=== PATIENT | male | born 1955 | race Caucasian/White ===

== ENCOUNTER → 2017-09-16 08:35 | Outpatient (CLI) | payer OTHER, SELFPAY ==
[2017-09-16 12:05] LABS: Absolute Lymphocyte Count 1.14 X10^3/ul (0.83-4.51); Absolute Neutrophil Count 3.8 X10^3/uL (2.0-7.7); Basophil# 0.01 X10^3/uL; Basophil% 0.2 % (0-1); Eosinophil# 0.32 X10^3/uL; Eosinophils% 5.4 % (0-5); Hematocrit 40.3 % (40-54); Lymphocyte # 1.14 X10^3/ul (4.0); Lymphocyte % 19.2 % (19-41); Mean Corp Hgb Conc 34.7 g/gl (32-36); Mean Corpuscular Hgb 30.5 pg (27.0-32.0); Mean Corpuscular Volume 87.8 fL (80-94); Mean Platelet Vol. 9.6 fl (6.2-12.0); Monocyte# 0.66 X10^3/uL; Monocyte% 11.1 % (0-10); Neutrophil % 63.8 % (47-70); POSITIVE COUNT NO; POSITIVE DIFFERENTIAL NO; POSITIVE MORPHOLOGY NO; Platelet Count 271 K/mm3 (150-450); RBC Distribution Width CV 13.3 % (11.6-14.6); RBC Distribution Width SD 41.9 fl (35.1-43.9); Red Blood Count 4.59 M/mm3 (4.6-6.2)
[2017-09-16 12:21] LABS: AST(SGOT) 33 U/L (15-37); Alanine Aminotransfer ALT/SGPT 58 U/L (16-61); Albumin, Serum 4.1 g/dL (3.2-5.0); Alkaline Phosphatase 77 U/L (45-117); Anion Gap 7 (5-15); BUN 13 mg/dL (7-18); BUN/Creat Ratio 16.8 RATIO (10-20); Calcium,Total 8.7 mg/dL (8.5-10.1); Chloride 105 mmol/L (98-107); Cholesterol 112 mg/dL (200); Creatinine, Serum 0.78 mg/dL (0.70-1.30); EST Glomerular Filtration Rate 107 mL/min (>60); Est Glom Filt Rate - Afr Amer 130 mL/min (>60); Glucose 127 mg/dL (74-106); High Density Lipoprotein 43 mg/dL; Potassium 4.1 mmol/L (3.5-5.1); Protein, Total 8.1 g/dL (6.4-8.2); Sodium Level 140 mmol/L (136-145); Triglycerides 113 mg/dL; Very Low Density Lipoprotein 23 mg/dL (5-40)
[2017-09-16 12:44] LABS: Microalbumin,Random Urine 27.9 mg/L (NO RANGE EST.); Microalbumin:Creatinine Ratio 31.1 mg/g CRE (<30 mg/g CRE)
== END ==
LOC: LAB.FUTURE 10-22 08:51 → BFHLAB 10-22 08:52
PROVIDERS: Family Provider Family Medicine; PCP Family Medicine; Visit Provider Family Medicine
DX: E11.9 Type 2 diabetes mellitus without complications (principal); I25.10 Atherosclerotic heart disease of native coronary artery without angina pectoris; E78.5 Hyperlipidemia, unspecified; I10 Essential (primary) hypertension
CPT/HCPCS: 36415; 80053; 80061; 82043; 82570; 85025

== ENCOUNTER → 2018-11-14 | Outpatient (CLI) | payer OTHER, SELFPAY ==
[2018-11-14 12:41] LABS: Absolute Lymphocyte Count 1.46 X10^3/uL (0.83-4.51); Absolute Neutrophil Count 3.4 X10^3/uL (2.0-7.7); Basophil# 0.02 X10^3/uL; Basophil% 0.3 % (0-1); Eosinophil# 0.31 X10^3/uL; Eosinophils% 5.4 % (0-5); Hematocrit 41.3 % (40-54); Hemoglobin 13.3 g/dL (13.0-16.5); Lymphocyte # 1.46 X10^3/ul (4.0); Lymphocyte % 25.3 % (19-41); Mean Corp Hgb Conc 32.2 g/dL (32-36); Mean Corpuscular Hgb 27.5 pg (27.0-32.0); Mean Corpuscular Volume 85.5 fL (80-94); Mean Platelet Vol. 9.4 fl (6.2-12.0); Monocyte# 0.51 X10^3/uL; Monocyte% 8.9 % (0-10); NRBC Flagged by Analyzer 0 % (0-5); Neutrophil # 3.44 X10^3/uL (2.7-7.7); Neutrophil % 59.8 % (47-70); Platelet Count 262 K/mm3 (150-450); RBC Distribution Width CV 14.1 % (11.6-14.6); RBC Distribution Width SD 43.3 fl (35.1-43.9); Red Blood Count 4.83 M/mm3 (4.6-6.2); White Blood Count 5.8 K/mm3 (4.4-11.0)
[2018-11-14 12:59] LABS: Microalbumin:Creatinine Ratio 148.9 mg/g CRE (<30 mg/g CRE)
[2018-11-14 13:03] LABS: AST(SGOT) 29 U/L (15-37); Alanine Aminotransfer ALT/SGPT 49 U/L (16-61); Alkaline Phosphatase 78 U/L (45-117); Anion Gap 11 (5-15); BUN 17 mg/dL (7-18); BUN/Creat Ratio 19.3 RATIO (10-20); Calcium,Total 8.8 mg/dL (8.5-10.1); Chloride 106 mmol/L (98-107); Cholesterol 116 mg/dL (200); Creatinine, Serum 0.88 mg/dL (0.70-1.30); EST Glomerular Filtration Rate 92 mL/min (>60); Est Glom Filt Rate - Afr Amer 112 mL/min (>60); Glucose 110 mg/dL (74-106); High Density Lipoprotein 41 mg/dL; Potassium 4.2 mmol/L (3.5-5.1); Sodium Level 141 mmol/L (136-145); Triglycerides 95 mg/dL; Very Low Density Lipoprotein 19 mg/dL (5-40)
[2018-11-14 13:07] LABS: Hemoglobin A1c 5.4 % (4.2-6.3)
== END | disposition home or self-care (01) ==
LOC: LAB.FUTURE 07:50
PROVIDERS: Family Provider Family Medicine; PCP Family Medicine; Visit Provider Family Medicine
DX: E11.9 Type 2 diabetes mellitus without complications (principal); I25.10 Atherosclerotic heart disease of native coronary artery without angina pectoris; I10 Essential (primary) hypertension
CPT/HCPCS: 36415; 80053; 80061; 82043; 82570; 83036; 85025

== ENCOUNTER → 2018-11-25 16:03 | Outpatient (CLI) | payer OTHER, SELFPAY ==
[2015-01-13 12:26] VITALS: BMI 32.9
--- NOTE | 2018-11-25 16:07 | RAD_ITS ---
HISTORY: Tenderness. Posterior heel pain for months. Bursitis versus spur. 2 views of the right calcaneus. Findings: Osteophytes extending into the dorsal superior aspect of the calcaneus at the insertion of the Achilles tendon. A smaller osteophyte extends on the plantar surface in the region of the origin of the upper fashion. RAD/Calcaneus min 2 Views IMPRESSION: Displaced osteophyte within the insertion of the Achilles tendon could cause pain and instability for months. That the fracture fragment appears well corticated, however, if the symptoms have been going on for several months. This could have been acute at the time of the origin of the symptoms. at 0605 Reported and signed by: Levi Thompson MD Electronically Signed: Levi Thompson MD at 6:04 EDT Tel , Service support ,
== END ==
PROVIDERS: Family Provider Family Medicine; PCP Family Medicine; Referring Provider Family Medicine; Visit Provider Family Medicine
DX: M79.671 Pain in right foot (principal)
CPT/HCPCS: 73650

== ENCOUNTER → 2019-10-23 08:06 | Outpatient (CLI) | payer OTHER, SELFPAY ==
[2019-10-23 09:12] LABS: Anion Gap 4 (5-15); BUN 14 mg/dL (7-18); Calcium,Total 9.1 mg/dL (8.5-10.1); Chloride 107 mmol/L (98-107); Cholesterol 109 mg/dL (200); Creatinine, Serum 0.93 mg/dL (0.70-1.30); EST Glomerular Filtration Rate 86 mL/min (>60); Est Glom Filt Rate - Afr Amer 104 mL/min (>60); Glucose 131 mg/dL (74-106); High Density Lipoprotein 40 mg/dL; Potassium 4.1 mmol/L (3.5-5.1); Sodium Level 140 mmol/L (136-145); Triglycerides 67 mg/dL; Very Low Density Lipoprotein 13 mg/dL (5-40)
[2019-10-23 09:16] LABS: Hemoglobin A1c 6.3 % (3.8-5.6)
[2019-10-23 09:22] LABS: Microalbumin,Random Urine 90.9 mg/L (NO RANGE EST.); Microalbumin:Creatinine Ratio 58.3 mg/g CRE (<30 mg/g CRE)
== END ==
PROVIDERS: Family Provider Family Medicine; PCP Family Medicine; Visit Provider Family Medicine
DX: E11.21 Type 2 diabetes mellitus with diabetic nephropathy (principal); E78.5 Hyperlipidemia, unspecified
CPT/HCPCS: 36415; 80048; 80061; 82043; 82570; 83036

== ENCOUNTER 2020-06-07 15:23 | Outpatient (RCR) | payer OTHER, SELFPAY | END 2020-06-15 23:59 | LOC: NS 15:23 | PROVIDERS: PCP Family Medicine; Visit Provider Family Medicine | DX: Z71.3 Dietary counseling and surveillance (principal); E66.9 Obesity, unspecified; Z68.35 Body mass index [BMI] 35.0-35.9, adult | CPT/HCPCS: 97802 ==

== ENCOUNTER 2020-07-04 16:20 | Outpatient (RCR) | payer OTHER, SELFPAY ==
[2015-01-13 12:26] VITALS: BMI 32.9
== END 2020-07-15 23:59 ==
LOC: NS 16:20
PROVIDERS: PCP Family Medicine; Visit Provider Family Medicine
DX: Z71.3 Dietary counseling and surveillance (principal); E66.9 Obesity, unspecified; Z68.35 Body mass index [BMI] 35.0-35.9, adult
CPT/HCPCS: 97803

== ENCOUNTER 2020-07-25 15:53 | Outpatient (RCR) | payer OTHER, SELFPAY ==
[2015-01-13 12:26] VITALS: BMI 32.9
== END 2020-08-15 23:59 ==
LOC: NS 15:53
PROVIDERS: PCP Family Medicine; Visit Provider Family Medicine
DX: Z71.3 Dietary counseling and surveillance (principal); E66.9 Obesity, unspecified; Z68.35 Body mass index [BMI] 35.0-35.9, adult
CPT/HCPCS: 97803

== ENCOUNTER 2020-09-13 16:00 | Outpatient (RCR) | payer OTHER, SELFPAY ==
[2015-01-13 12:26] VITALS: BMI 32.9
== END 2020-09-14 23:59 ==
LOC: NS 16:00
PROVIDERS: PCP Family Medicine; Visit Provider Family Medicine
DX: Z71.3 Dietary counseling and surveillance (principal); E66.9 Obesity, unspecified; Z68.35 Body mass index [BMI] 35.0-35.9, adult
CPT/HCPCS: 97803

== ENCOUNTER 2020-09-29 15:55 | Outpatient (RCR) | payer OTHER, SELFPAY ==
[2015-01-13 12:26] VITALS: BMI 32.9
== END 2020-10-15 23:59 ==
LOC: NS 15:55
PROVIDERS: PCP Family Medicine; Visit Provider Family Medicine
DX: Z71.3 Dietary counseling and surveillance (principal); E66.9 Obesity, unspecified; Z68.35 Body mass index [BMI] 35.0-35.9, adult
CPT/HCPCS: 97803

== ENCOUNTER 2020-11-22 16:49 | Outpatient (RCR) | payer OTHER, SELFPAY ==
[2015-01-13 12:26] VITALS: BMI 32.9
== END 2020-11-22 23:59 | disposition home or self-care (01) ==
LOC: NS 16:49
PROVIDERS: PCP Family Medicine; Visit Provider Family Medicine
DX: Z71.3 Dietary counseling and surveillance (principal); E66.9 Obesity, unspecified; Z68.35 Body mass index [BMI] 35.0-35.9, adult
CPT/HCPCS: 97803

== ENCOUNTER 2021-05-18 15:49 | Outpatient (CLI) | payer OTHER, SELFPAY ==
--- NOTE | 2021-05-18 15:55 | RAD_ITS ---
STUDY: X-RAY - ABDOMEN/PELVIS REASON FOR EXAM: Male, 65 years old. CHANGE IN BOWEL HABITS TECHNIQUE: Single AP view of the abdomen / pelvis. COMPARISON: None. FINDINGS: Normal visualized lung bases. There is an unremarkable bowel gas pattern. The visualized liver, spleen and kidneys are grossly normal in size and morphology. Normal soft tissue structures. Normal visualized osseous structures. RAD/Abdomen Single View IMPRESSION: Normal x-ray examination of the abdomen and pelvis. Electronically Signed: Raad Carmona MD at 8:37 EST ,
[2021-05-18 18:12] LABS: Hemoglobin A1c 6.4 % (3.8-5.6)
[2021-05-18 18:14] LABS: PSA,Total - Annual Screen 9.57 ng/mL (0.00-4.00)
[2021-05-19 15:48] LABS: PSA,Total- Diagnostic 9.57 ng/mL (0.0-4.0)
== END 2021-05-18 23:59 | disposition home or self-care (01) ==
LOC: MTLAB 15:51
PROVIDERS: PCP Family Medicine; Referring Provider Family Medicine; Visit Provider Family Medicine
DX: E11.9 Type 2 diabetes mellitus without complications (principal); R97.20 Elevated prostate specific antigen [PSA]; K59.00 Constipation, unspecified; R19.4 Change in bowel habit
CPT/HCPCS: 36415; 74018; 83036; 84153; 84443; G0103

== ENCOUNTER 2021-06-20 16:51 | Outpatient (CLI) | payer OTHER, SELFPAY ==
--- NOTE | 2021-06-20 | IMM_PTH ---
PATIENT: PRANAV OLIVO [facility] U[id number] AGE/SX: 66/M ROOM: RE06/20/[address]: Dr. Alan Tijerina MD : 1955 BED: DIS: 06/20/2021 SPEC #: [id number] RECD: 06/22/21 11:16 STATUS: CECILIA REDavid #: [id number] ANGELICA: 06/20/21 00:[address]: Alan Tijerina DEPT: IMMUNOHISTOCHEMISTRY RECD BY: Marcelina Barrios ENTERED: 06/22/21 11:17 SP TYPE: IMMUNO OTHR DR: Dr. Benitez Root, Tissues: A - PROSTATE RIGHT E - PROSTATE LEFT Procedures: 34BE12 (add) P40 (add) 34BE12 (initial) PHYSICIAN & INSTITUTION [place] [address] SPECIMEN INFORMATION: Tissue Source: A - Right prostate, apex, core biopsy, E - Left prostate, mid, core biopsy Clinical Info: Elevated PSA Specimen Number: [id number] A & E CPT code: 70558, 98464 x3 METHODOLOGY: Deparaffinized sections of prefer/formalin-fixed tissue or PAP/DQ stained slides are incubated with monoclonal/polyclonal antibodies/oligonucleotide probes. Localization is made via biotin free immunoperoxidase method. Appropriate controls are performed and reacted as expected. Results on target cell population are indicated in the following table: RESULTS: ANTIBODY / CLONE RESULT Block A P40 (BC28) negative 34BE12 (34BE12) negative Block E P40 (BC28) negative 34BE12 (34BE12) negative These tests were developed and their performance characteristics determined by [facility]. They may not have been cleared or approved by the U.S. Food and Drug Administration. The FDA has determined that such clearance or approval is not necessary. The above immunohistochemical/dualISH markers are ordered and reviewed by the Pathologist. INTERPRETATION: A. Right prostate, apex, core biopsy: Adenocarcinoma. E. Left prostate, mid, core biopsy: Adenocarcinoma. ANTONIO:alma 06/23/2021
--- NOTE | 2021-06-20 13:00 | PROSBIL_PTH ---
PATIENT: PRANAV OLIVO [facility] U[facility][id number] AGE/SX: 66/M ROOM: RE06/20/[address]: Dr. Alan Tijerina MD : 1955 BED: DIS: 06/20/2021 SPEC #: [id number] RECD: 06/20/21 17:03 STATUS: CECILIA REDavid #: [id number] ANGELICA: 06/20/21 13:[address]: Alan Tijerina DEPT: SURGICAL PATHOLOGY RECD BY: Sameera Silva ENTERED: 06/21/21 11:02 SP TYPE: PROST BX ILSA DR: Dr. Benitez Root DO Tissues: A - PROSTATE RIGHT B - PROSTATE RIGHT C - PROSTATE RIGHT D - PROSTATE LEFT E - PROSTATE LEFT F - PROSTATE LEFT Procedures: PROSTATE BX HEADER OPERATION: Prostate biopsy PRE-OP DIAGNOSIS: Elevated PSA TISSUE SUBMITTED: A - Right apex, B - Right mid, C - Right base, D - Left apex, E - Left mid, F - Left base MICROSCOPIC DIAGNOSIS A. Right prostate, apex, core biopsy: Prostatic adenocarcinoma. Kristopher grade: 3+3=6 Number of cores involved: 1/1 Proportion of tissue involved: ~25% Perineural invasion: Not identified. Greatest tumor length: 0.3 cm. See comment. B. Right prostate, mid, core biopsy: Prostatic adenocarcinoma. Kristopher grade: 3+4=7 Number of cores involved: 2/2 Proportion of tissue involved: 50% Perineural invasion: Not identified. Greatest tumor length: 1.0 cm Focal high-grade prostatic intraepithelial neoplasia (HGPIN). C. Right prostate, base, core biopsy: Prostatic adenocarcinoma. [place] grade: 3+4=7 Number of cores involved: 2/2 Proportion of tissue involved: ~30% Perineural invasion: Not identified. Greatest tumor length: 0.7 cm, discontinuous Focal high-grade prostatic intraepithelial neoplasia (HGPIN). D. Left prostate, apex, core biopsy: Prostatic adenocarcinoma. [place] grade: 3+4=7 Number of cores involved: 1/1 Proportion of tissue involved: ~80% Perineural invasion: Not identified. Greatest tumor length: 0.5 cm See comment. E. Left prostate, mid, core biopsy: Prostatic adenocarcinoma. Kristopher grade: 3+4=7 Number of cores involved: 2/3 Proportion of tissue involved: ~25% Perineural invasion: Not identified. Greatest tumor length: 0.5 cm See comment. F. Left prostate, base, core biopsy: Prostatic adenocarcinoma. Kristopher grade: 3+4=7 Number of cores involved: 2/2 Proportion of tissue involved: ~20%% Perineural invasion: Not identified. Greatest tumor length: 1 cm, discontinuous Focal high-grade prostatic intraepithelial neoplasia (HGPIN). SJ:alma 06/22/2021 COMMENT A. Immunohistochemistry ([id number]) supports the above diagnosis. D. The specimen got fragmented during processing. E. Immunohistochemistry ([id number]) supports the above diagnosis. Case has been reviewed in consultation with Dr. Lao who concurs with the above diagnosis. IDC:AM MICROSCOPIC DESCRIPTION Slides are reviewed. GROSS DESCRIPTION A - Received is one container designated prostate, right apex. The specimen consists of one elongated fragment of light avila-white soft tissue measuring 1.1 cm in length and 0.1 cm in diameter. The specimen is totally submitted in one cassette. B - Received is one container designated prostate, right mid. The specimen consists of two elongated fragments of light avila-white soft tissue each measuring 1.2 cm in length and 0.1 cm in diameter. The specimen is totally submitted in one cassette. C - Received is one container designated prostate, right base. The specimen consists of two elongated fragments of light avila-white soft tissue measuring 0.5 and 1.2 cm in length and 0.1 cm in diameter. The specimen is totally submitted in one cassette. D - Received is one container designated prostate, left apex. The specimen consists of one elongated fragment of light avila-white soft tissue measuring 0.9 cm in length and 0.1 cm in diameter. The specimen is totally submitted in one cassette. E - Received is one container designated prostate, left mid. The specimen consists of three elongated fragments of light avila-white soft tissue measuring 0.5 to 1 cm in length and 0.1 cm in diameter. The specimen is totally submitted in one cassette. F - Received is one container designated prostate, left base. The specimen consists of two elongated fragments of light avila-white soft tissue each measuring 1.1 cm in length and 0.1 cm in diameter. The specimen is totally submitted in one cassette. / AM:alma 06/21/2021 TC:0 CPT: 23732 x6
== END 2021-06-20 23:59 | disposition home or self-care (01) ==
LOC: LABSPEC 16:52
PROVIDERS: PCP Family Medicine; Referring Provider Urology; Visit Provider Urology
DX: C61 Malignant neoplasm of prostate (principal)
CPT/HCPCS: 88305; 88341; 88342; G0416

== ENCOUNTER → 2021-07-17 | Outpatient (CLI) | payer OTHER, SELFPAY ==
--- NOTE | 2021-07-17 08:57 | NM_ITS ---
CLINICAL: Male, 66 years old. MALIGNANT NEOPLASM OF PROSTATE -- RISING PSA WHOLE BODY NUCLEAR BONE SCAN TECHNIQUE: Following the IV administration of 27.1 mCi of Tc MDP, whole body bone imaging was performed with a gamma camera following a three hour delay. COMPARISON STUDIES : NM - None. CR - Not available for review at this time. CT - Not available for review at this time. MR - Not available for review at this time. US - Not available for review at this time. FINDINGS: Mild degenerative activity of the bilateral shoulders and ankles. There is otherwise normal concentration of radiopharmaceutical throughout the axial and appendicular skeletal system without either a focal decrease or increase in uptake. NM/Bone Scan Whole Body IMPRESSION: No evidence of osseous metastasis. Electronically Signed: Faisal Beatty MD ([place]) at 7:01 EDT ,
== END | disposition home or self-care (01) ==
LOC: NM 08:36
PROVIDERS: PCP Family Medicine; Visit Provider Urology
DX: C61 Malignant neoplasm of prostate (principal)
CPT/HCPCS: 78306; A9503

== ENCOUNTER → 2021-07-31 | Outpatient (CLI) | payer OTHER, SELFPAY ==
--- NOTE | 2021-07-31 13:35 | CT_ITS ---
STUDY: CT Abdomen And Pelvis W/O Contrast Injection 07/31/2021 8:10 PM REASON FOR EXAM: Male, 66 years old. prostate cancer staging, eval LNs -- no contrast due to allergy TECHNIQUE: Transaxial images were obtained with oral contrast, and without intravenous contrast. Individualized dose optimization techniques were used for this CT. COMPARISON: 01.13.15 ctap. FINDINGS: There are atherosclerotic calcifications of visualized coronary arteries. The visualized portions of the heart are within normal limits. There is decreased attenuation of the liver consistent with steatosis. Unremarkable gallbladder and extrahepatic biliary system. Unremarkable spleen. Unremarkable pancreas. Unremarkable bilateral adrenal glands. No acute findings of the right kidney. There are hypodensities in the left kidney. These are consistent for cysts. No follow up required. Unremarkable visualized stomach. Unremarkable small intestine. Unremarkable colon. The appendix is visualized and appears unremarkable. There are no acute findings of the abdominal aorta. Unremarkable inferior vena cava. Subcentimeter mesenteric lymph nodes. Unremarkable urinary bladder. There are prostatic calcifications. There is an umbilical hernia containing fat. There are diffuse degenerative changes of the visualized lumbar spine. CT/Abdomen/Pelvis without Cont IMPRESSION: (NOT LISTED IN ORDER OF SIGNIFICANCE) Fatty liver. There are prostatic calcifications. No significant periprostatic lymph nodes. Other findings as above. Electronically Signed: Estevan Chance MD at 20:14 EDT ,
== END | disposition home or self-care (01) ==
PROVIDERS: PCP Family Medicine; Referring Provider Student in an Organized Health Care Education/Training Program; Visit Provider Student in an Organized Health Care Education/Training Program
DX: C61 Malignant neoplasm of prostate (principal)
CPT/HCPCS: 74176

== ENCOUNTER 2021-08-16 06:34 | Day surgery (SDC) | payer OTHER, SELFPAY ==
[2021-08-16 06:59] VITALS: BP 143/83; PULSE 78; RESP 16; TEMP 36.8; O2SAT 96; BMI 34.4
[2021-08-16] MEDS: Lactated Ringers 1,000 ML 15 ML IV (07:03)
[2021-08-16 07:10] LABS: Bedside Glucose 170 mg/dL (74-106)
--- NOTE | 2021-08-16 07:49 | HP.PCM_ITS ---
HPI - General HPI Narrative PRANAV OLIVO, is a 66 M who presents placement of gold markers and spacer gel. [facility] Medical History (Updated 08/10/21 @ 14:11 by Viry Hernandez) Arthritis Atherosclerotic heart disease of [place] coronary artery without angina pectoris Cancer Cardiology follow-up encounter Degenerative disc disease, cervical Diabetes Diabetes mellitus type II, controlled Essential hypertension Gastric reflux High cholesterol History of non-ST elevation myocardial infarction (NSTEMI) (10/05/16) Hyperlipidemia Obesity Obstructive sleep apnea Right cervical radiculopathy Skin cancer Wears glasses Home Medications atorvastatin 40 mg tablet 40 mg PO DAILY 06/09/21 [History Last Taken Unknown] losartan 100 mg tablet 100 mg PO DAILY 06/09/21 [History Last Taken 08/16/21] metformin 500 mg tablet 1,000 mg PO BID tab 06/09/21 [History Last Taken Unknown] rabeprazole 20 mg tablet,delayed release 20 mg PO DAILY 06/09/21 [History Last Taken Unknown] triamcinolone acetonide 55 mcg nasal spray aerosol 2 spray INTRANASAL DAILY 06/09/21 [History Last Taken Unknown] calcium carbonate 600 mg-vitamin D3 10 mcg (400 unit) capsule 1 cap PO BID cap 07/24/21 [History Last Taken Unknown] ciprofloxacin HCl [Cipro] 500 mg PO BID #10 tab 08/16/21 [Rx Last Taken Unknown] Allergy/AdvReac Type Severity Reaction Status Date / Time Iodinated Contrast Media Allergy Severe Hives and Verified 08/16/21 07:04 Vomiting Family History Mother History of defect Arthritis COPD (chronic obstructive pulmonary disease) Father , Age 67 from CAD CAD (coronary artery disease) Myocardial infarction, Onset Age: 47 Hypertension Hyperlipidemia Uncle CAD (coronary artery disease) Myocardial infarction, Onset Age: 49 Sister History of defect Surgical History (Updated 08/10/21 @ 14:11 by Viry Hernandez) History of coronary artery stent placement (10/16/16) History of vocal cord polypectomy (1999) Hx of colonoscopy Status post surgical removal of malignant neoplasm of skin (2013) Social History (Updated 07/24/21 @ 09:13 by Caty Moura) household members: spouse Smoking Status: Never smoker alcohol intake: current alcohol intake frequency: a few times a week Alcohol type: beer substance use type: does not use diet: diabetic caffeine: Yes Type: coffee Number of servings: 1 what type of physical activity do you participate in: walking Vital Signs Vital Signs Vital Signs: 08/16/21 06:59 Temperature 98.2 F Temperature Source Temporal Pulse Rate 78 Respiratory Rate 16 Respiratory Pattern Normal Blood Pressure 143/83 H Blood Pressure Mean 103 Blood Pressure Source Monitor Blood Pressure Position Semi-Fowlers Blood Pressure Location Left Arm Pulse Ox 96 Oxygen Delivery Method Room Air Weight Weight: 115.212 kg Body Mass Index (BMI) 34.4 Results Lab / Micro Data Labs: Laboratory Results - last 24 hr 08/16/21 07:07: POC Glucose 170 H
--- NOTE | 2021-08-16 07:50 | PCM.DC ---
Discharge Instructions Diet Discharge Diet: No restrictions Activity Discharge Activity: Return to Normal Activity and May Not Drive (while taking narcotic pain medications.) Dressing / Incision Call your doctor if you observe: Fever of 101 or Higher Follow Up Care Please Follow Up With: Alan Tijerina MD When: Call [phone] for an appointment Test Results: Test results from this visit will be discussed in further detail at your follow-up appointment, if applicable. Discharge Plan Admission Primary Reason for Your Visit: spacer gel and markers Attending Provider: Alan Tijerina Primary Care Provider: Benitez Root Discharge Orders/Prescriptions Prescriptions: New ciprofloxacin HCl [Cipro] 500 mg tablet 500 mg PO BID Qty: 10 RF: 0 Continued atorvastatin 40 mg tablet 40 mg PO DAILY RF: 0 losartan 100 mg tablet 100 mg PO DAILY RF: 0 metformin 500 mg tablet 1,000 mg PO BID RF: 0 rabeprazole [AcipHex] 20 mg tablet,delayed release (DR/EC) 20 mg PO DAILY RF: 0 triamcinolone acetonide [Nasacort Allergy] 55 mcg aerosol,spray 2 spray intranasal DAILY RF: 0 calcium carbonate-vitamin D3 600 mg-10 mcg (400 unit) capsule 1 cap PO BID RF: 0 Referrals / Follow Up: Alan Tijerina MD [STAFF PHYSICIAN] - Benitez Root DO [Primary Care Provider] - Disposition Disposition (needs filled in before D/C Order can be placed): Home, Self Care
[2021-08-16] MEDS: Cefazolin 2 GM in 0.9% Normal Saline 100 ML IV (09:04)
--- NOTE | 2021-08-16 09:22 | OP.PCM_ITS ---
Report of Operation Date of Procedure: 08/16/21 Pre-Operative Diagnosis: prostate cancer Post-Operative Diagnosis: same Surgery/Procedure Performed:: placement of gold markers, and spacer gel matrix Description of Surgical Findings:: Patient was taken back to the operating room after smooth induction of anesthesia he was placed supine on the table. The genitals and perineum were prepped and draped in usual sterile fashion. I then introduced a biplanar ultrasound probe into the rectum and performed ultrasonography and identified the Denonvilliers' fascia the prostate mid base and apex and seminal vesicles. The spacer gel mix was then prepared on the back table per manufactures instruction. Under ultrasound guidance in the midline perineum a bevel needle down we advanced through the perineum below the prostate into the space of Denonvilliers' fascia. This space which could be identified by ultrasound with a bright white layer between the prostate and the rectum. I then injected a puff of normal saline to identify the space further. After I confirmed that the needle was in the correct space in the mid prostate and the space of Denonvilliers' fascia between the rectum and the prostate. Then over the course of 15 seconds the gel matrix was injected slowly there was nice separation between the prostate and the rectum at the gel matrix was injected. The position of the gel matrix was confirmed by ultrasound. Then the injection needle was removed intact. The penis and testicles were prepped and draped in usual sterile fashion, ultrasound probe was placed into the rectum and biplanar ultrasound was perform ed on the prostate. Identified the base mid and apex of the prostate identified the transition zone prostate. Then using a needle the first auto radiator specialist was placed into the right base of the prostate, the second auto radiator specialist was placed in the left base of the prostate, and the third core marker was placed in the right apex of the prostate after all 3 markers were placed the placement of the marker s were confirmed by ultrasonography.Patient's perineum was cleaned patient was taken out of stirrups and then taken back to the PACU in good condition. Surgeon: benjamín Type of Anesthesia: General Drains: none Admit VTE Documentation VTE Present on Admission: No VTE Mechan Device Prophylaxis: SCD's VTE Pharm Prophylaxis ordered?: No
[2021-08-16 09:32] VITALS: BP 126/79; BP 143/83; PULSE 83; RESP 16; TEMP 37.2; O2SAT 96
[2021-08-16 09:44] VITALS: BP 135/85; BP 143/83; PULSE 80; RESP 16; O2SAT 99
[2021-08-16 09:55] LABS: Bedside Glucose 140 mg/dL (74-106)
[2021-08-16 10:00] VITALS: BP 142/79; BP 143/83; PULSE 73; RESP 16; TEMP 36.8; O2SAT 98
[2021-08-16 10:15] VITALS: BP 143/83
== END 2021-08-16 10:28 | disposition home or self-care (01) ==
LOC: SDC 06:36 → AC 06:37
PROVIDERS: PCP Family Medicine; Referring Provider Urology; Visit Provider Urology
PROC: (CPT 55874; principal; 2021-08-16 08:40)
DX: C61 Malignant neoplasm of prostate (principal); E11.9 Type 2 diabetes mellitus without complications; E78.00 Pure hypercholesterolemia, unspecified; I10 Essential (primary) hypertension; I25.10 Atherosclerotic heart disease of native coronary artery without angina pectoris; E78.5 Hyperlipidemia, unspecified; Z79.84 Long term (current) use of oral hypoglycemic drugs; Z79.82 Long term (current) use of aspirin; Z79.899 Other long term (current) drug therapy; Z95.5 Presence of coronary angioplasty implant and graft; E66.9 Obesity, unspecified; K21.9 Gastro-esophageal reflux disease without esophagitis; I25.2 Old myocardial infarction; Z85.828 Personal history of other malignant neoplasm of skin; Z68.34 Body mass index [BMI] 34.0-34.9, adult
CPT/HCPCS: 55876; 55874; 00902; 82962; J7120; J2405

== ENCOUNTER → 2021-08-22 | Outpatient (CLI) | payer OTHER, SELFPAY ==
--- NOTE | 2021-08-22 12:37 | MRI_ITS ---
STUDY: MR PELVIS WITH T WITHOUT CONTRAST REASON FOR EXAM: Male, 66 years old. ELEVATED PROSTATE SPECIFIC ANTIGEN prostate cancer staging unf int risk cancer, planning for XRT -- eval extent of disease TECHNIQUE: Standardized fat and water weighted pulse sequences were obtained in all 3 orthogonal planes, pre-and post contrast administration. with and without of 23ml Dotarem contrast material was administered intravenously for the contrast portion of the examination. COMPARISON: Jul 31 2021 1:29pmCTAP and CT TX 6.7.22 FINDINGS: Normal urinary bladder. Normal visualized colon. There is an umbilical hernia containing fat. Prostate gland: The anterior fibromuscular stroma and central zone appear intact. The central gland demonstrates heterogeneous signal characteristics. There are MRI findings suggesting BPH. There are prostatic calcifications. Prostate seeds or fiducial markers noted. This may interfere with the DWI and ADC signal. Focal area of low T2 signal in the left peripheral zone measuring 4 mm. Se 7 IM: 16. However there is no correlating ADC or DWI signal features to suggest a mass. Rectum is unremarkable. Levator ani muscle is not disrupted. The distal urethra is surrounded by the low T2 signal intensity muscle which is the external urethral sphincter as noted on the coronal images. The penile bulb is embraced by an intact inferomedial levator ani muscle. No areas of abnormal enhancement. Normal visualized neurovascular bundles. There is no pelvic fluid. There is no pelvic mass lesion or lymphadenopathy. Normal visualized pelvic arteries. Normal osseous structures. Normal abdominal wall. MRI/Pelvis W/WO Contrast IMPRESSION: Focal area of low T2 signal in the left peripheral zone measuring 4 mm. Se 7 IM: 16. However there is no correlating ADC or DWI signal features to suggest a mass. This is the location of a fiducial marker/ prostate seed. This may be causing artifact and/or lac of ADC and DWI signal. However, at its present MRI findings. Assessment: PIRADS 1 - Very low. Clinically significant cancer is highly unlikely to be present. Electronically Signed: Estevan Chance MD at 20:45 EDT ,
[2021-08-22 13:46] LABS: CREATININE FINGERSTICK < 0.9 mg/dL (0.70-1.30); EGFR FINGERSTICK > 60.0000 mL/min (>60)
== END | disposition home or self-care (01) ==
LOC: MRI 12:37
PROVIDERS: PCP Family Medicine; Referring Provider Student in an Organized Health Care Education/Training Program; Visit Provider Student in an Organized Health Care Education/Training Program
DX: C61 Malignant neoplasm of prostate (principal)
CPT/HCPCS: 72197; A9575

== ENCOUNTER → 2022-01-26 | Outpatient (CLI) | payer OTHER, SELFPAY ==
--- NOTE | 2022-01-26 09:16 | RAD_ITS ---
EXAM: XR ABDOMEN, 1 VIEW CLINICAL INDICATION: CHANGE IN BOWEL HABITS TECHNIQUE: Frontal supine view of the abdomen/pelvis. This report was created using [employer] report generation technology. COMPARISON: None. FINDINGS: LOWER THORAX: No acute pathology. GASTROINTESTINAL TRACT: Unremarkable. Non-obstructive. No bowel or stomach distention. ORGANS: Unremarkable as visualized. No organomegaly. No abnormal calcifications. BONES/JOINTS: No acute pathology. SOFT TISSUES: No acute pathology. RAD/Abdomen Single View IMPRESSION: Non-obstructive bowel gas pattern. Electronically Signed: Gordon Garland MD at 19:46 EST ,
== END | disposition home or self-care (01) ==
LOC: MTRAD 09:15
PROVIDERS: PCP Family Medicine; Referring Provider Family Medicine; Visit Provider Family Medicine
DX: R19.4 Change in bowel habit (principal)
CPT/HCPCS: 74018

== ENCOUNTER → 2022-04-06 | Outpatient (CLI) | payer OTHER, SELFPAY ==
[2022-04-06 08:28] LABS: PSA,Total- Diagnostic 0.02 ng/mL (0.0-4.0)
== END | disposition home or self-care (01) ==
LOC: LAB 07:09
PROVIDERS: PCP Family Medicine; Referring Provider Urology; Visit Provider Urology
DX: C61 Malignant neoplasm of prostate (principal)
CPT/HCPCS: 36415; 84153

== ENCOUNTER → 2022-09-28 | Outpatient (CLI) | payer OTHER, SELFPAY ==
[2022-09-28 11:01] LABS: Cholesterol 80 mg/dL (200); High Density Lipoprotein 33 mg/dL; PSA,Total- Diagnostic 0.17 ng/mL (0.0-4.0); Triglycerides 150 mg/dL; Very Low Density Lipoprotein 30 mg/dL (5-40)
== END | disposition home or self-care (01) ==
LOC: MTLAB 07:25
PROVIDERS: PCP Family Medicine; Referring Provider Family Medicine; Visit Provider Family Medicine
DX: E78.5 Hyperlipidemia, unspecified (principal); C61 Malignant neoplasm of prostate
CPT/HCPCS: 36415; 80061; 84153

== ENCOUNTER → 2023-04-01 | Outpatient (CLI) | payer OTHER, SELFPAY ==
--- OUTSIDE RECORDS SUMMARY | 2023-04-01 08:58 | XMS RPT_ITS | CCD ---
Author Name Unknown Address [id number] [place] [address] Organization [facility] Care Team Providers Care Drum Sander Name Role Phone WEI JAVIER Unavailable Unavailable PRODAFIKAS, SRUTHI Unavailable Unavailable PRODAFIKAS, SRUTHI Unavailable Unavailable NAGAJOTHI, NAGAPRADEEP Unavailable Unavailab le NAGAJOTHI, NAGAPRADEEP Unavailable Unavailab le NAGAJOTHI, NAGAPRADEEP Unavailable Unavailab le NAGAJOTHI, NAGAPRADEEP Unavailable Unavailab le NAGAJOTHI, NAGAPRADEEP Unavailable Unavailab le PRODAFIKAS, SRUTHI Unavailable Unavailable PRODAFIKAS, SRUTHI Unavailable Unavailable PRODAFIKAS, SRUTHI Unavailable Unavailable PRODAFIKAS, SRUTHI Unavailable Unavailable PRODAFIKAS, SRUTHI Unavailable Unavailable PRODAFIKAS, SRUTHI Unavailable Unavailable PRODAFIKAS, SRUTHI Unavailable Unavailable PRODAFIKAS, SRUTHI Unavailable Unavailable PRODAFIKAS, SRUTHI Unavailable Unavailable PRODAFIKAS, SRUTHI Unavailable Unavailable PRODAFIKAS, SRUTHI Unavailable Unavailable SABOTA, SILVESTRE W Unavailable Unavailable PRODAFIKAS, SRUTHI Unavailable Unavailable PRODAFIKAS, SRUTHI Unavailable Unavailable PRODAFIKAS, SRUTHI Unavailable Unavailable BENJAMIN ZACARIAS Unavailable Unavailabl e NAGAJOTHI, NAGAPRADEEP Unavailable Unavailab le NAGAJOTHI, NAGAPRADEEP Unavailable Unavailab le WEI JAVIER Unavailable Unavailable WEI KEENAN Admitting Unavailable WEI KEENAN Attending Unavailable WEI KEENAN Primary Care Unavailable WEI KEENAN Admitting Unavailable WEI KEENAN Attending Unavailable WEI KEENAN Primary Care Unavailable Benitez Root DO Primary Care Provider Allergies Allergy Classification Reported Allergen(s) Allergy Type Date of Onset Reaction(s) Facility (3 sources) Angiotensin-conv erting enzyme inhibitor agent Propensity to adverse reactions 10-18-2008 Cough [facility] (3 sources) Iodine Drug Allergy 10-18-2008 Hives [facility] Medications Current Medications Medication Drug Class(es) Dates Sig (Normalized) Sig (Original) polyethylene glycol 3350 827844 mg / potassium chloride 2970 mg / sodium bicarbonate 6740 mg / sodium chloride 5860 mg / sodium sulfate 05462 mg powder for oral solution (1 source) Osmotic Laxative Start: 06-19-2021 End: 06-19-2021 peg 3350-Electrolytes (GOLYTELY) 236-22.74-6.74 -5.86 gram suspension Take 4,000 mL by mouth one time only for 1 dose. 1 Each 0 06/19/2021 06/19/2021 Active Completed/Discontinued Medications Medication Drug Class(es) Dates Sig (Normalized) Sig (Original) aspirin 81 mg delayed release oral tablet (3 sources) Platelet Aggregation Inhibitor, Nonsteroidal Anti-inflammatory Drug Start: 10-18-2008 ASPIRIN 81 MG TAB, DELAYED RELEASE Indications: Type II or unspecified type diabetes mellitus without mention of complication, not stated as uncontrolled Take one(1) tablet daily. 0 10/18/2008 Active Problems Active Problems Problem Classification Problem Date Documented Date Episodic/Chronic Coronary atherosclerosis and other heart disease (3 sources) Coronary atherosclerosis; Translations: [Atherosclerotic heart disease of [place] coronary artery without angina pectoris] Onset: 10-09-2016 10-09-2016 Chronic Diabetes mellitus without complication (3 sources) Diabetes mellitus; Translations: [Type 2 diabetes mellitus without complications] 12-27-2014 Chronic Digestive congenital anomalies (1 source) Tortuous colon; 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 Disorders of lipid metabolism (3 sources) Hyperlipidemia; Translations: [Hyperlipidemia, unspecified] 12-27-2014 Chronic Esophageal disorders (4 sources) Gastroesophageal reflux disease; Translations: [Gastro-esophageal reflux disease without esophagitis] Chronic Essential hypertension (3 sources) Benign essential hypertension; Translations: [Essential (primary) hypertension] 10-18-2008 Chronic Other and unspecified benign neoplasm (2 sources) History of polyp of colon; Translations: [Personal history of colonic polyps] Episodic Other and unspecified benign neoplasm (1 source) Serrated polyp of colon; Translations: [Polyp of colon] Episodic Other screening for suspected conditions (not mental disorders or infectious disease) (1 source) Patient encounter status; Translations: [Encounter for screening for malignant neoplasm of colon] Episodic Residual codes; unclassified (3 sources) Obstructive sleep apnea syndrome; Translations: [Obstructive sleep apnea (adult) (pediatric)] 12-27-2014 Chronic Past or Other Problems Problem Classification Problem Date Documented Da te Episodic/Chronic Other and unspecified benign neoplasm (3 sources) Adenomatous polyp of colon ; Translations: [Benign neoplasm of colon, unspecified] Onset: 12-11-2011 12-11-2011 Episodic Results Test Name Value Interpretation Reference Range Facil ity Vital Signs Date Time Vital Sign Value Performing Clinician Faci lity 08-23-2021 09:59-0400 Body height 182.9 cm Es Theodora PA-C Work Phone: [facility] 08-23-2021 09:59-0400 Body temperature 97.5 [degF] Es Nimmons PA-C Work Phone: [facility] 08-23-2021 09:59-0400 Body weight 113.4 kg Es Nimmons PA-C Work Phone: [facility] 08-23-2021 09:59-0400 Diastolic blood pressure 72 mm[Hg] Es Nimmons PA-C Work Phone: [facility] 08-23-2021 09:59-0400 Heart rate 104 /min Es Nimmons PA-C Work Phone: [facility] 08-23-2021 09:59-0400 SaO2% (BldA) [Mass fraction] 97 % Es Theodora PA-C Work Phone: [facility] 08-23-2021 09:59-0400 Systolic blood pressure 132 mm[Hg] Es Nimmons PA-C Work Phone: [facility] 08-09-2021 13:08-0400 Body temperature 97.7 [degF] Clinton Kramer MD Work Phone: [facility] 08-09-2021 13:08-0400 Diastolic blood pressure 85 mm[Hg] Clinton Kramer MD Work Phone: [facility] 08-09-2021 13:08-0400 Heart rate 77 /min Clinton Kramer MD Work Phone: [facility] 08-09-2021 13:08-0400 Respiratory rate 14 /min Clinton Kramer MD Work Phone: [facility] 08-09-2021 13:08-0400 SaO2% (BldA) [Mass fraction] 95 % Clinton Kramer MD Work Phone: [facility] 08-09-2021 13:08-0400 Systolic blood pressure 147 mm[Hg] Clinton Kramer MD Work Phone: [facility] 06-13-2021 16:10-0400 Body height 182.9 cm Es Nimmons PA-C Work Phone: [facility] 06-13-2021 16:10-0400 Body temperature 98.01 [degF] Es Nimmons PA-C Work Phone: [facility] 06-13-2021 16:10-0400 Body weight 116.12 kg Es Theodora PA-C Work Phone: [facility] 06-13-2021 16:10-0400 Diastolic blood pressure 83 mm[Hg] Es Nimmons PA-C Work Phone: [facility] 06-13-2021 16:10-0400 Heart rate 89 /min Es Theodora PA-C Work Phone: [facility] 06-13-2021 16:10-0400 SaO2% (BldA) [Mass fraction] 99 % Es Nimmons PA-C Work Phone: [facility] 06-13-2021 16:10-0400 Systolic blood pressure 161 mm[Hg] Es Nimmons PA-C Work Phone: [facility] Encounters Encounter Date Encounter Type Care Provider Facility Start: 08-23-2021 End: 08-23-2021 Patient encounter procedure Es Theodora PA-C Work Phone: General Surgery Procedures Date Procedure Procedure Detail Performing Clinician Start: 08-09-2021 Gluc bld gluc mntr d ev cleared fda spec home use Bhavna Dubon MD Work Phone: Start: 08-09-2021 Colon ca scrn not hi rsk ind Es Yip PA-C Work Phone: Start: 08-09-2021 Gluc bld gluc mntr d ev cleared fda spec home use Bhavna Dubon MD Work Phone: Start: 08-09-2021 Colonoscopy Clinton hernandez MD Work Phone: Start: 10-29-2016 Adult depression scr eening assessment Es Yip PA-C Work Phone: Start: 03-03-2012 Colonoscopy Es ron PA-C Work Phone: Plan of Treatment Date Care Activity Detail Author Start: 08-09-2026 Colonoscopy COLONOSCOPY [facility] Start: 08-09-2026 COLORECTAL CANCER SCREENING COLORECTAL CANCER SCREENING [facility] Start: 08-09-2024 Colonoscopy COLONOSCOPY [facility] Start: 08-09-2024 COLORECTAL CANCER SCREENING COLORECTAL CANCER SCREENING [facility] Start: 12-10-2021 Urine microalbumin profile DTAP,TDAP,TD (2 - Td or Tdap) [facility] Start: 11-16-2021 [facility] Start: 05-14-2021 Hemoglobin A1c/Hemoglobin.total in Blood HBA1C [facility] Start: 03-18-2021 ADVANCE DIRECTIVE DISCUSSION ADVANCE DIRECTIVE DISCUSSION [facility] Start: 2018 PNEUMOVAX AGE 65 AND OVER WITH 5YR LOOKBACK (#1) PNEUMOVAX AGE 65 AND OVER WITH 5YR LOOKBACK (#1) [facility] Start: 11-20-2017 Hepatitis B screening URINE ALBUMIN:CREATININE RATIO [facility] Start: 11-20-2017 Hepatitis B surface antibody level LDL CHOLESTEROL [facility] Start: 11-12-2017 ANNUAL PCP TEAM CHRONIC DISEASE VISIT ANNUAL PCP TEAM CHRONIC DISEASE VISIT [facility] Start: 10-29-2017 Adult depression screening assessment DEPRESSION SCREENING [facility] Start: 06-14-2017 3 comp foot exam completed DIABETIC FOOT EXAM [facility] Start: 05-15-2017 Hepatitis C antibody, confirmatory test DILATED RETINAL EXAM [facility] Start: 03-03-2017 Colonoscopy COLONOSCOPY [facility] Start: 03-03-2017 COLORECTAL CANCER SCREENING COLORECTAL CANCER SCREENING [facility] Start: 10-26-2011 PROSTATE CANCER SCREENING DISCUSSION PROSTATE CANCER SCREENING DISCUSSION [facility] Start: 08-16-2007 PNEUMOCOCCAL: 65+ (2 - PCV) PNEUMOCOCCAL: 65+ (2 - PCV) [facility] Start: 06-17-2003 SHINGRIX VACCINE (1 of 2) SHINGRIX VACCINE (1 of 2) [facility] Start: 1998 COLOGUARD (FIT-DNA) COLOGUARD (FIT-DNA) [facility] Start: [address] COLONOGRAPHY [facility] Start: 1998 FECAL OCCULT BLOOD FECAL OCCULT BLOOD [facility] Start: 1998 SIGMOIDOSCOPY SIGMOIDOSCOPY [facility] Start: 06-17-1971 BP CONTROLLED (<130/80) BP CONTROLLED (<130/80) [facility] Start: 1958 COVID-19 VACCINE (#1) COVID-19 VACCINE (#1) [facility] Start: 1960 COVID-19 VACCINE (1) COVID-19 VACCINE (1) [facility] SURGICAL PATHOLOGY [facility] Work Phone: Immunizations Immunization Date Immunization Notes Care Provider Malena bess 12-27-2014 influenza, injectabl e, quadrivalent, contains preservative Es Nimmons PA-C Work Phone: [facility] 12-10-2013 influenza, seasonal, injectable Es Theodora PA-C Work Phone: [facility] Work Phone: 02-19-2013 influenza virus vacc ine, unspecified formulation Es Theodora PA-C Work Phone: [facility] 12-11-2011 tetanus toxoid, redu lola diphtheria toxoid, and acellular pertussis vaccine, adsorbed Es Nimmons PA-C Work Phone: [facility] Work Phone: 02-20-2011 influenza virus vacc ine, unspecified formulation Es Nimmons PA-C Work Phone: [facility] 08-15-2006 pneumococcal polysaccharide vaccine, 23 valent Clinton Kramer MD Work Phone: [facility] Work Phone: Payers Date Payer Category Payer Unknown MMO MMO [employer] [id number] 2018-Present [phone] [address] [place] [address] PPO [id number] 2016 Unknown [id number] 1955 Unknown [id number] Medicare [id number] Social History Date Type Detail Facility Tobacco smoking stat [facility] Never smoked tobacco [facility] Start: 06-13-2021 End: 08-29-2021 Alcohol intake Current drinker of alcohol (finding) [facility] Start: 1955 Sex Assigned At Not on file C [facility] Start: 06-03-2021 End: 08-23-2021 Exposure to SARS-CoV-2 (event) Not sure [facility] Medical Equipment Procedure Code Equipment Code Equipment Origin al Text Equipment Identifier Dates Test blood sugar (s) 2 times daily. Dx: 250.02. Insulin: No Start: 09-27-2014 Clinical Notes 11-02-2013 to 08-23-2021 Patient InstructionsEs Yip PA-C - 08/23/2021 10:05 AM Leonard Kramer MD - 08/09/2021 12:30 PM Clayton Yip PA-C - 06/13/2021 4:23 PM EDMohan Grove - 06/13/2021 4:15 PM EDT Note Date & Type Note Facility 08-23-2021 Note HNO ID: [id number] Author: Es Yip PA-C Service: ? Author Type: Physician [employer] Type: Progress Notes Filed: 08/29/2021 1:09 PM Note Text: FOLLOW UP VISIT - ENDOSCOPY NAME: Pranav Marques [facility] NO.: [id number] DATE OF SERVICE: 08/23/2021 : 1955 REFERRING PHYSICIAN: Benitez Root DO Pranav is a patient I am following with Dr. Kramer for surveillance colonoscopy, history of colonic polyps, and GERD. Dr. Kramer performed lower endoscopy on 08/09/21. The patient was found to have a medium polyp in the sigmoid colon which was removed. Pathology demonstrated: FINAL DIAGNOSIS A. Colon, sigmoid polyp, biopsy: -Fragments of sessile serrated polyp. The patient notes no complaints since the procedure. Prior office notes discussed possible EGD based on acid reflux and long-term PPI use. No record of EGD completion in [facility]. Reviewed with patient, who denies having any significant reflux currently and does not wish to pursue EGD at present time. VITALS: Blood pressure 132/72, pulse 104, temperature 36.4 ?C (97.5 ?F), height 182.9 cm (6'), weight 113.4 kg (250 lb), SpO2 97 %. General: patient is alert, cooperative, pleasant and in no acute distress On examination, the abdomen is benign. Assessment IMPRESSION: s/p colonoscopy with polypectomy-sessile serrated polyp PLAN: The operative findings and pathology report were reviewed with the patient, and the patient has had the opportunity to ask questions and have questions answered. If the patient notes any problems or changes in bowel function, the patient should contact me immediately. Otherwise I recommend follow up endoscopy in 3-5 years. HM updated and recall letter generated. Patient verbalized understanding of all above and agreed with the plan Diagnoses: (K63.5) Serrated polyp of colon (primary encounter diagnosis) I spent a total of 23 minutes on the date of the service which included preparing to see the patient, [id number] patient care, completing clinical documentation, obtaining and/or reviewing separately obtained history, counseling and educating the patient/family/caregiver, independently interpreting results (not separately reported) and communicating results to the patient/family/caregiver. Es Yip PA-C [facility] 08-23-2021 Instructions Es Yip PA-C - 08/23/2021 10:16 AM EDT The following instructions are important for you related to your office visit today with the [facility]. INSTRUCTIONS FOLLOWING A POLYP FOUND AT COLONOSCOPY You were found to have an adenomatous colon polyp. I recommend you undergo repeat endoscopy in 3-5 years. If you note bleeding, change in bowel habits, or other suspicious colon related symptoms before that time, those symptoms should be evaluated as necessary. If you have any difficulties or concerns, you should contact our office immediately. If you note any additional difficulties, questions, or concerns, you should contact our office immediately @ [phone] and ask to be transferred to the General Surgery department. documented in this encounter [facility] 08-23-2021 History of Present illness Narrative FOLLOW UP VISIT - ENDOSCOPY NAME: Pranav Mohan [facility] NO.: [id number] DATE OF SERVICE: 08/23/2021 : 1955 REFERRING PHYSICIAN: Benitez Root DO Pranav is a patient I am following with Dr. Kramer for surveillance colonoscopy, history of colonic polyps, and GERD. Dr. Kramer performed lower endoscopy on 08/09/21. The patient was found to have a medium polyp in the sigmoid colon which was removed. Pathology demonstrated: FINAL DIAGNOSIS A. Colon, sigmoid polyp, biopsy: -Fragments of sessile serrated polyp. The patient notes no complaints since the procedure. Prior office notes discussed possible EGD based on acid reflux and long-term PPI use. No record of EGD completion in [facility]. Reviewed with patient, who denies having any significant reflux currently and does not wish to pursue EGD at present time. VITALS: Blood pressure 132/72, pulse 104, temperature 36.4 C (97.5 F), height 182.9 cm (6'), weight 113.4 kg (250 lb), SpO2 97 %. General: patient is alert, cooperative, pleasant and in no acute distress On examination, the abdomen is benign. Assessment IMPRESSION: s/p colonoscopy with polypectomy-sessile serrated polyp PLAN: The operative findings and pathology report were reviewed with the patient, and the patient has had the opportunity to ask questions and have questions answered. If the patient notes any problems or changes in bowel function, the patient should contact me immediately. Otherwise I recommend follow up endoscopy in 3-5 years. HM updated and recall letter generated. Patient verbalized understanding of all above and agreed with the plan Diagnoses: (K63.5) Serrated polyp of colon (primary encounter diagnosis) I spent a total of 23 minutes on the date of the service which included preparing to see the patient, [id number] patient care, completing clinical documentation, obtaining and/or reviewing separately obtained history, counseling and educating the patient/family/caregiver, independently interpreting results (not separately reported) and communicating results to the patient/family/caregiver. Es Yip PA-C documented in this encounter [facility] 08-09-2021 History and physical note Images from the original note were not included. HISTORY AND PHYSICAL Pranav [place] 1955 REFERRING PHYSICIAN: Self CHIEF COMPLAINT: Consult (Colonoscopy) HPI: The patient is a 65 year old male referred for endoscopy. Patient notes some recent slightly irregular bowel habits. Denies weight changes, blood in stools, black tarry stools or abdominal pain. Denies family history of colon issues. The patient NOTES upper GI complaints-acid reflux for which he has been maintained on a PPI long-term. Denies having EGD in the past. Pranav has undergone prior endoscopy. Had prior endoscopy by Dr. Hu in 2011, scope could not be advanced past hepatic flexure. Had polyp removed at that time and was also noted to have redundant colon. Polyp returned as sessile serrated polyp. He required a follow-up barium enema. Past medical history significant for GA and stent placement, type II diabetes, sleep apnea, hypertension. He is currently being worked up for elevated PSA with upcoming prostate biopsy scheduled. PAST MEDICAL HISTORY PAST MEDICAL HISTORY Diagnosis Date Benign neoplasm of rectum and anal canal Diverticulosis of colon (without mention of hemorrhage) Esophageal reflux Essential hypertension, benign Internal hemorrhoids without mention of complication Microalbuminuria Other and unspecified hyperlipidemia Personal history of colonic polyps Type II or unspecified type diabetes mellitus without mention of complication, not stated as uncontrolled Unspecified sleep apnea CPAP PAST SURGICAL HISTORY PAST SURGICAL HISTORY Procedure Laterality Date COLONOSCOPY FLX DX W/COLLJ SPEC WHEN PFRMD 12/19/2006 Colonoscopy, tubular adenoma-repeat in COLONOSCOPY FLX DX W/COLLJ SPEC WHEN PFRMD 03/03/12 Colonoscopy repeat 5 years PAST SURGICAL HISTORY OF Vocal cord nodule PAST SURGICAL HISTORY OF 09/2016 stent CURRENT MEDICATIONS Current Outpatient Medications Medication Sig atorvastatin (LIPITOR) 40 mg tablet Take 40 mg by mouth once daily. losartan (COZAAR) 50 mg tablet TAKE 1 TABLET ONCE DAILY (Patient taking differently: 100 mg. ) metFORMIN (GLUCOPHAGE) 500 mg tablet TAKE 2 TABLETS TWICE A DAY WITH MEALS RABEprazole (ACIPHEX) 20 mg tablet TAKE 1 TABLET ONCE DAILY blood sugar diagnostic (BLOOD GLUCOSE TEST) test strip Test blood sugar(s) 2 times daily. Dx: 250.02. Insulin: No Lancets lancets Test blood sugar(s) 2 times daily. Dx: 250.02. Insulin: No atorvastatin (LIPITOR) 40 mg tablet Take 40 mg by mouth once daily. ticagrelor (BRILINTA) 90 mg tablet Take 90 mg by mouth twice daily. ASPIRIN 81 MG TAB, DELAYED RELEASE Take one(1) tablet daily. (Patient not taking: DO NOT crush. ) No current facility-administered medications for this visit. ALLERGIES: Los Inhibitors and Iodine PERSONAL HISTORY: SOCIAL HISTORY Social History Tobacco Use Smoking status: Never Smoker Smokeless tobacco: Never Used Substance Use Topics Alcohol use: Yes Comment: social Drug use: No FAMILY HISTORY: FAMILY HISTORY FAMILY HISTORY Problem Relation Age of Onset Coronary Artery Disease Father Diabetes Father Coronary Artery Disease Paternal Uncle Diabetes Paternal Aunt REVIEW OF SYMPTOMS: The review of systems data was entered by the nurse and reviewed by wy Nursing Notes: Samantha Grove 06/13/2021 4:17 PM Signed REVIEW OF SYSTEMS: General: The patient denies fatigue, denies weight loss, NOTES weight gain, denies feeling hot, and denies feelings of cold. Eyes: The patient denies glaucoma, denies eye injury/surgery, wears glasses or contacts. Ear/Nose/Throat: The patient NOTES allergies, denies hayfever, denies ear infections, and denies bloody noses. Cardiovascular: The patient denies chest pain, denies heart disease, NOTES high blood pressure,NOTES cardiac stent, NOTES prior heart attack, denies irregular heart beat, denies high cholesterol, denies poor circulation, denies heart failure, other cardiac issues, denies claudication, denies cold feet, denies peripheral arterial stent. Respiratory: The patient denies tuberculosis, denies pneumonia, denies frequent cough, denies pulmonary embolism, denies shortness of breath, and denies coughing up blood. Gastrointestinal: The patient denies difficulty swallowing, NOTES acid reflux, denies ulcers, denies vomiting, denies jaundice/hepatitis, denies gallbladder problems, denies black or tarry stools, denies hemorrhoids, denies bleeding from rectum, denies diverticulitis, denies constipation, denies diarrhea, denies loss of stool control, and denies hernias. Kidney/Bladder: The patient denies kidney stones, denies urine infections, and denies bloody urine. Skin: The patient NOTES a history of skin cancer, denies bleeding/changing moles, and denies a history of skin rash. Neurologic: The patient denies a history of epilepsy/convulsions, denies headaches, denies head/spinal injuries, and denies stroke/TIA. Psychiatric: The patient denies psychiatric medications, denies depression, and denies voices, denies substance abuse. Endocrine: The patient denies thyroid disorders, NOTES diabetes, and denies hormonal problems. Hematologic: The patient denies a history of bruising, denies bleeding, and denies anemia, denies blood clots. Infections: The patient NOTES a history of measles and mumps, denies rheumatic fever, and denies sexually transmitted diseases. Musculoskeletal: The patient denies back pain/injury, denies back problems, denies sciatica, denies knee/foot trouble, denies arthritis, or denies gout. When was patient's last Mammogram screening? N/A Last Colonoscopy: 2011 Samantha Grove I have confirmed and edited as necessary, the PFSH and ROS obtained by others. Es Yip PA-C PHYSICAL EXAMINATION: General: The patient is 65 year old male, well nourished, well hydrated in no acute distress. The patient is oriented to time, place, and person. VITALS: Blood pressure 161/83, pulse 89, temperature 36.7 C (98 F), height 182.9 cm (6'), weight 116.1 kg (256 lb), SpO2 99 %. Body mass index is 34.72 kg/m . HEENT: Normal cephalic, ataumatic, pupils are equally round, sclera are anicteric, mucous membranes are moist, oropharynx is clear. Neck has no masses, asymmetry or lymphadenopathy. Respiratory: Clear to auscultation and percussion. Normal respiratory excursion and pattern. Cardiac: Examination is regular rate and rhythm. Normal S1/S2 Abdominal exam: Soft, nontender, with no palpable masses. No hepatosplenomegaly. No palpable hernias. Extremities: no clubbing, cyanosis or edema. No adenopathy. LABORATORY VALUES: As Noted RADIOLOGIC STUDIES: As Noted Assessment IMPRESSION: encounter for screening colonoscopy. GERD and long-term PPI use-recommend EGD in addition to colonoscopy PLAN: I have reviewed my findings with the surgeon. Will plan for upper and lower endoscopy. We discussed the risks and benefits of the planned endoscopy. I have informed the patient that complications can occur including failure to complete the endoscopy and perforation. The patient had the opportunity to ask questions concerning the planned endoscopy. My staff has also explained the procedure to the patient in understandable terms and has given the patient printed material concerning the procedure. The patient freely consents to surgery. The patient was offered a surgery/procedure at a [facility] facility. I have counseled the patient regarding the risk of exposure to and/or potential harm posed by the COVID-19 virus with having a surgery/procedure at this time versus the risk of delaying the surgery/procedure. It is not possible to know either the risk of delaying the surgery or procedure or chance of getting an infection with perfect accuracy, but a joint decision was made between the patient and myself to proceed at this time with endoscopy. I plan to use Golytely bowel preparation Patient to remain on aspirin for the procedure We will plan for Monitored Anesthetic Care. History tortuous/redundant colon Patient instructed to contact PCP for instructions regarding diabetic medication, which may require adjustment during bowel preparation and/or day of procedure Diagnoses: (Z12.11) Encounter for screening for malignant neoplasm of colon (primary encounter diagnosis) (K21.9) Gastroesophageal reflux disease, unspecified whether esophagitis present Consultation requested by Dr. Root for an opinion regarding screening colonoscopy. My final recommendations will be communicated back to the requesting physician by way of shared Medical record or letter to requesting physician via US mail. Es Yip PA-C UPDATED HISTORY AND PHYSICAL EXAMINATION SERVICE DATE: 08/09/2021 SERVICE TIME: 12:13 PM PHYSICAL EXAM MUST BE COMPLETED ON ADMISSION The History and Physical (completed in the past 30 days) has been reviewed and the patient has been examined. The contents accurately reflect the patient's condition with the following additions or revisions since the H&P was completed. Examination indicates no changes. This H&P can be found in the attached. SIGNATURE: Clinton Kramer III, MD PATIENT NAME: Pranav Alicea DATE: August 09, 2021 TIME: 12:13 PM documented in this encounter [facility] 06-13-2021 Note HNO ID: [id number] Author: Es Yip PA-C Service: ? Author Type: Physician Senior [employer] Type: Progress Notes Filed: 06/19/2021 12:39 PM Note Text: HISTORY AND PHYSICAL Pranav Alicea 1955 REFERRING PHYSICIAN: Self CHIEF COMPLAINT: Consult (Colonoscopy) HPI: The patient is a 65 year old male referred for endoscopy. Patient notes some recent slightly irregular bowel habits. Denies weight changes, blood in stools, black tarry stools or abdominal pain. Denies family history of colon issues. The patient NOTES upper GI complaints-acid reflux for which he has been maintained on a PPI long-term. Denies having EGD in the past. Pranav has undergone prior endoscopy. Had prior endoscopy by Dr. Hu in 2011, scope could not be advanced past hepatic flexure. Had polyp removed at that time and was also noted to have redundant colon. Polyp returned as sessile serrated polyp. He required a follow-up barium enema. Past medical history significant for GA and stent placement, type II diabetes, sleep apnea, hypertension. He is currently being worked up for elevated PSA with upcoming prostate biopsy scheduled. PAST MEDICAL HISTORY Diagnosis Date - Benign neoplasm of rectum and anal canal - Diverticulosis of colon (without mention of hemorrhage) - Esophageal reflux - Essential hypertension, benign - Internal hemorrhoids without mention of complication - Microalbuminuria - Other and unspecified hyperlipidemia - Personal history of colonic polyps - Type II or unspecified type diabetes mellitus without mention of complication, not stated as uncontrolled - Unspecified sleep apnea CPAP PAST SURGICAL HISTORY Procedure Laterality Date - COLONOSCOPY FLX DX W/COLLJ SPEC WHEN PFRMD 12/19/2006 Colonoscopy, tubular adenoma-repeat in - COLONOSCOPY FLX DX W/COLLJ SPEC WHEN PFRMD 03/03/12 Colonoscopy repeat 5 years - PAST SURGICAL HISTORY OF Vocal cord nodule - PAST SURGICAL HISTORY OF 09/2016 stent Current Outpatient Medications Medication Sig - atorvastatin (LIPITOR) 40 mg tablet Take 40 mg by mouth once daily. - losartan (COZAAR) 50 mg tablet TAKE 1 TABLET ONCE DAILY (Patient taking differently: 100 mg. ) - metFORMIN (GLUCOPHAGE) 500 mg tablet TAKE 2 TABLETS TWICE A DAY WITH MEALS - RABEprazole (ACIPHEX) 20 mg tablet TAKE 1 TABLET ONCE DAILY - blood sugar diagnostic (BLOOD GLUCOSE TEST) test strip Test blood sugar(s) 2 times daily. Dx: 250.02. Insulin: No - Lancets lancets Test blood sugar(s) 2 times daily. Dx: 250.02. Insulin: No - atorvastatin (LIPITOR) 40 mg tablet Take 40 mg by mouth once daily. - ticagrelor (BRILINTA) 90 mg tablet Take 90 mg by mouth twice daily. - ASPIRIN 81 MG TAB, DELAYED RELEASE Take one(1) tablet daily. (Patient not taking: DO NOT crush. ) No current facility-administered medications for this visit. ALLERGIES: Los Inhibitors and Iodine PERSONAL HISTORY: Social History Tobacco Use - Smoking status: Never Smoker - Smokeless tobacco: Never Used Substance Use Topics - Alcohol use: Yes Comment: social - Drug use: No FAMILY HISTORY: FAMILY HISTORY Problem Relation Age of Onset - Coronary Artery Disease Father - Diabetes Father - Coronary Artery Disease Paternal Uncle - Diabetes Paternal Aunt REVIEW OF SYMPTOMS: The review of systems data was entered by the nurse and reviewed by wy Nursing Notes: Samantha Grove 06/13/2021 4:17 PM Signed REVIEW OF SYSTEMS: General: The patient denies fatigue, denies weight loss, NOTES weight gain, denies feeling hot, and denies feelings of cold. Eyes: The patient denies glaucoma, denies eye injury/surgery, wears glasses or contacts. Ear/Nose/Throat: The patient NOTES allergies, denies hayfever, denies ear infections, and denies bloody noses. Cardiovascular: The patient denies chest pain, denies heart disease, NOTES high blood pressure,NOTES cardiac stent, NOTES prior heart attack, denies irregular heart beat, denies high cholesterol, denies poor circulation, denies heart failure, other cardiac issues, denies claudication, denies cold feet, denies peripheral arterial stent. Respiratory: The patient denies tuberculosis, denies pneumonia, denies frequent cough, denies pulmonary embolism, denies shortness of breath, and denies coughing up blood. Gastrointestinal: The patient denies difficulty swallowing, NOTES acid reflux, denies ulcers, denies vomiting, denies jaundice/hepatitis, denies gallbladder problems, denies black or tarry stools, denies hemorrhoids, denies bleeding from rectum, denies diverticulitis, denies constipation, denies diarrhea, denies loss of stool control, and denies hernias. Kidney/Bladder: The patient denies kidney stones, denies urine infections, and denies bloody urine. Skin: The patient NOTES a history of skin cancer, denies bleeding/changing moles, and denies a history of skin rash. Neurologic: The patient denies a history of epilepsy/ (more content not included)... [facility] 06-13-2021 History of Present illness Narrative HISTORY AND PHYSICAL Pranav Alicea 1955 REFERRING PHYSICIAN: Self CHIEF COMPLAINT: Consult (Colonoscopy) HPI: The patient is a 65 year old male referred for endoscopy. Patient notes some recent slightly irregular bowel habits. Denies weight changes, blood in stools, black tarry stools or abdominal pain. Denies family history of colon issues. The patient NOTES upper GI complaints-acid reflux for which he has been maintained on a PPI long-term. Denies having EGD in the past. Pranav has undergone prior endoscopy. Had prior endoscopy by Dr. Hu in 2011, scope could not be advanced past hepatic flexure. Had polyp removed at that time and was also noted to have redundant colon. Polyp returned as sessile serrated polyp. He required a follow-up barium enema. Past medical history significant for GA and stent placement, type II diabetes, sleep apnea, hypertension. He is currently being worked up for elevated PSA with upcoming prostate biopsy scheduled. PAST MEDICAL HISTORY Diagnosis Date Benign neoplasm of rectum and anal canal Diverticulosis of colon (without mention of hemorrhage) Esophageal reflux Essential hypertension, benign Internal hemorrhoids without mention of complication Microalbuminuria Other and unspecified hyperlipidemia Personal history of colonic polyps Type II or unspecified type diabetes mellitus without mention of complication, not stated as uncontrolled Unspecified sleep apnea CPAP PAST SURGICAL HISTORY Procedure Laterality Date COLONOSCOPY FLX DX W/COLLJ SPEC WHEN PFRMD 12/19/2006 Colonoscopy, tubular adenoma-repeat in COLONOSCOPY FLX DX W/COLLJ SPEC WHEN PFRMD 03/03/12 Colonoscopy repeat 5 years PAST SURGICAL HISTORY OF Vocal cord nodule PAST SURGICAL HISTORY OF 09/2016 stent Current Outpatient Medications Medication Sig atorvastatin (LIPITOR) 40 mg tablet Take 40 mg by mouth once daily. losartan (COZAAR) 50 mg tablet TAKE 1 TABLET ONCE DAILY (Patient taking differently: 100 mg. ) metFORMIN (GLUCOPHAGE) 500 mg tablet TAKE 2 TABLETS TWICE A DAY WITH MEALS RABEprazole (ACIPHEX) 20 mg tablet TAKE 1 TABLET ONCE DAILY blood sugar diagnostic (BLOOD GLUCOSE TEST) test strip Test blood sugar(s) 2 times daily. Dx: 250.02. Insulin: No Lancets lancets Test blood sugar(s) 2 times daily. Dx: 250.02. Insulin: No atorvastatin (LIPITOR) 40 mg tablet Take 40 mg by mouth once daily. ticagrelor (BRILINTA) 90 mg tablet Take 90 mg by mouth twice daily. ASPIRIN 81 MG TAB, DELAYED RELEASE Take one(1) tablet daily. (Patient not taking: DO NOT crush. ) No current facility-administered medications for this visit. ALLERGIES: Los Inhibitors and Iodine PERSONAL HISTORY: Social History Tobacco Use Smoking status: Never Smoker Smokeless tobacco: Never Used Substance Use Topics Alcohol use: Yes Comment: social Drug use: No FAMILY HISTORY: FAMILY HISTORY Problem Relation Age of Onset Coronary Artery Disease Father Diabetes Father Coronary Artery Disease Paternal Uncle Diabetes Paternal Aunt REVIEW OF SYMPTOMS: The review of systems data was entered by the nurse and reviewed by wy Nursing Notes: Samantha Grove 06/13/2021 4:17 PM Signed REVIEW OF SYSTEMS: General: The patient denies fatigue, denies weight loss, NOTES weight gain, denies feeling hot, and denies feelings of cold. Eyes: The patient denies glaucoma, denies eye injury/surgery, wears glasses or contacts. Ear/Nose/Throat: The patient NOTES allergies, denies hayfever, denies ear infections, and denies bloody noses. Cardiovascular: The patient denies chest pain, denies heart disease, NOTES high blood pressure,NOTES cardiac stent, NOTES prior heart attack, denies irregular heart beat, denies high cholesterol, denies poor circulation, denies heart failure, other cardiac issues, denies claudication, denies cold feet, denies peripheral arterial stent. Respiratory: The patient denies tuberculosis, denies pneumonia, denies frequent cough, denies pulmonary embolism, denies shortness of breath, and denies coughing up blood. Gastrointestinal: The patient denies difficulty swallowing, NOTES acid reflux, denies ulcers, denies vomiting, denies jaundice/hepatitis, denies gallbladder problems, denies black or tarry stools, denies hemorrhoids, denies bleeding from rectum, denies diverticulitis, denies constipation, denies diarrhea, denies loss of stool control, and denies hernias. Kidney/Bladder: The patient denies kidney stones, denies urine infections, and denies bloody urine. Skin: The patient NOTES a history of skin cancer, denies bleeding/changing moles, and denies a history of skin rash. Neurologic: The patient denies a history of epilepsy/convulsions, denies headaches, denies head/spinal injuries, and denies stroke/TIA. Psychiatric: The patient denies psychiatric medications, denies depression, and denies voices, denies substance abuse. Endocrine: The patient denies thyroid disorders, NOTES diabetes, and denies hormonal problems. Hematologic: The patient denies a history of bruising, denies bleeding, and denies anemia, denies blood clots. Infections: The patient NOTES a history of measles and mumps, denies rheumatic fever, and denies sexually transmitted diseases. Musculoskeletal: The patient denies back pain/injury, denies back problems, denies sciatica, denies knee/foot trouble, denies arthritis, or denies gout. When was patient's last Mammogram screening? N/A Last Colonoscopy: 2011 Samantha Grove I have confirmed and edited as necessary, the PFSH and ROS obtained by others. Es Yip PA-C PHYSICAL EXAMINATION: General: The patient is 65 year old male, well nourished, well hydrated in no acute distress. The patient is oriented to time, place, and person. VITALS: Blood pressure 161/83, pulse 89, temperature 36.7 C (98 F), height 182.9 cm (6'), weight 116.1 kg (256 lb), SpO2 99 %. Body mass index is 34.72 kg/m . HEENT: Normal cephalic, ataumatic, pupils are equally round, sclera are anicteric, mucous membranes are moist, oropharynx is clear. Neck has no masses, asymmetry or lymphadenopathy. Respiratory: Clear to auscultation and percussion. Normal respiratory excursion and pattern. Cardiac: Examination is regular rate and rhythm. Normal S1/S2 Abdominal exam: Soft, nontender, with no palpable masses. No hepatosplenomegaly. No palpable hernias. Extremities: no clubbing, cyanosis or edema. No adenopathy. LABORATORY VALUES: As Noted RADIOLOGIC STUDIES: As Noted Assessment IMPRESSION: encounter for screening colonoscopy. GERD and long-term PPI use-recommend EGD in addition to colonoscopy PLAN: I have reviewed my findings with the surgeon. Will plan for upper and lower endoscopy. We discussed the risks and benefits of the planned endoscopy. I have informed the patient that complications can occur including failure to complete the endoscopy and perforation. The patient had the opportunity to ask questions concerning the planned endoscopy. My staff has also explained the procedure to the patient in understandable terms and has given the patient printed material concerning the procedure. The patient freely consents to surgery. The patient was offered a surgery/procedure at a [facility] facility. I have counseled the patient regarding the risk of exposure to and/or potential harm posed by the COVID-19 virus with having a surgery/procedure at this time versus the risk of delaying the surgery/procedure. It is not possible to know either the risk of delaying the surgery or procedure or chance of getting an infection with perfect accuracy, but a joint decision was made between the patient and myself to proceed at this time with endoscopy. I plan to use Golytely bowel preparation Patient to remain on aspirin for the procedure We will plan for Monitored Anesthetic Care. History tortuous/redundant colon Patient instructed to contact PCP for instructions regarding diabetic medication, which may require adjustment during bowel preparation and/or day of procedure Diagnoses: (Z12.11) Encounter for screening for malignant neoplasm of colon (primary encounter diagnosis) (K21.9) Gastroesophageal reflux disease, unspecified whether esophagitis present Consultation requested by Dr. Root for an opinion regarding screening colonoscopy. My final recommendations will be communicated back to the requesting physician by way of shared Medical record or letter to requesting physician via US mail. Es Yip PA-C documented in this encounter [facility] 06-13-2021 Nurse Note REVIEW OF SYSTEMS: General: The patient denies fatigue, denies weight loss, NOTES weight gain, denies feeling hot, and denies feelings of cold. Eyes: The patient denies glaucoma, denies eye injury/surgery, wears glasses or contacts. Ear/Nose/Throat: The patient NOTES allergies, denies hayfever, denies ear infections, and denies bloody noses. Cardiovascular: The patient denies chest pain, denies heart disease, NOTES high blood pressure,NOTES cardiac stent, NOTES prior heart attack, denies irregular heart beat, denies high cholesterol, denies poor circulation, denies heart failure, other cardiac issues, denies claudication, denies cold feet, denies peripheral arterial stent. Respiratory: The patient denies tuberculosis, denies pneumonia, denies frequent cough, denies pulmonary embolism, denies shortness of breath, and denies coughing up blood. Gastrointestinal: The patient denies difficulty swallowing, NOTES acid reflux, denies ulcers, denies vomiting, denies jaundice/hepatitis, denies gallbladder problems, denies black or tarry stools, denies hemorrhoids, denies bleeding from rectum, denies diverticulitis, denies constipation, denies diarrhea, denies loss of stool control, and denies hernias. Kidney/Bladder: The patient denies kidney stones, denies urine infections, and denies bloody urine. Skin: The patient NOTES a history of skin cancer, denies bleeding/changing moles, and denies a history of skin rash. Neurologic: The patient denies a history of epilepsy/convulsions, denies headaches, denies head/spinal injuries, and denies stroke/TIA. Psychiatric: The patient denies psychiatric medications, denies depression, and denies voices, denies substance abuse. Endocrine: The patient denies thyroid disorders, NOTES diabetes, and denies hormonal problems. Hematologic: The patient denies a history of bruising, denies bleeding, and denies anemia, denies blood clots. Infections: The patient NOTES a history of measles and mumps, denies rheumatic fever, and denies sexually transmitted diseases. Musculoskeletal: The patient denies back pain/injury, denies back problems, denies sciatica, denies knee/foot trouble, denies arthritis, or denies gout. When was patient's last Mammogram screening? N/A Last Colonoscopy: 2011 Samantha Grove documented in this encounter [facility] documented as of this encounter (statuses as of 06/19/2021) [facility]08-18-2014 History of Past illness Narrative* Problem Noted Date Resolved Date Open wound(s) (multiple) of unspecified site(s), without mention of complication 11/02/2013 12/27/2014 documented as of this encounter (statuses as of 08/10/2021) [facility] History of Past illness Narrative* Problem Noted Date Resolved Date Open wound(s) (multiple) of unspecified site(s), without mention of complication 11/02/2013 12/27/2014 documented as of this encounter (statuses as of 08/29/2021) [facility] Diagnosis Encounter for screening for malignant neoplasm of colon- Primary Special screening for malignant neoplasms, colon Gastroesophageal reflux disease, unspecified whether esophagitis present History of colonic polyps Personal history of colonic polyps Tortuous colon Volvulus [facility] Diagnosis History of colon polyps Personal history of colonic polyps [facility]* Diagnosis Serrated polyp of colon- Primary [facility] (n[facility]ative)* Outpatient Procedure (Routine) - Closed Specialty Diagnoses / Procedures Referred By Lachelle ramirez Referred To Contact [facility] Diagnoses History of colon polyps Procedures COLONOSCOPY SCREENING COLONOSCOPY FLX DX W/COLLJ SPEC WHEN PFRMD Es Yip PA-C [address] [place] [address] [address] Referral ID Status Reason Start Date Expiration Date V isits Requested Visits Authorized [id number] Closed Auto-Generate d Referral 2021 06/14/2022 1 1 [facility] N[facility]* Outpatient Procedure (Routine) - Closed Specialty Diagnoses / Procedures Referred By Lachelle t Referred To Contact [facility] Diagnoses History of colon polyps Procedures COLONOSCOPY SCREENING COLONOSCOPY FLX DX W/COLLJ SPEC WHEN PFRMD Es Yip PA-C [address] [facility] [place] [address] [address] Referral ID Status Reason Start Date Expiration Date V isits Requested Visits Authorized [id number] Closed Auto-Generate d Referral 2021 06/14/2022 1 1 [facility] Summary Purpose Family History No Family History Records FoundNo Family History Records FoundNo Family History Records FoundNo Family History Records FoundNo Family History Records Found Advance Directives No Advanced Directives Records FoundDocuments on File Type Date Recorded Patient Patient Manager Expl anation Advance Directive(s) 08/09/2021 10:13 AM Advance Directive(s) 07/21/2021 5:08 PM Documents on File Type Date Recorded Patient Patient Manager Expl anation Advance Directive(s) 08/09/2021 10:13 AM Advance Directive(s) 07/21/2021 5:08 PM Medications Administered Section Inactive Administered Medications - up to 3 most recent administrations Medication Order MAR Action Action Date Dose Rate Site lactated ringers iv infusion 30 mL/hr, INTRAVENOUS, CONTINUOUS, Starting on Sat08/09/21 at 1100, Until Sat08/09/21 at 1247, Preprocedure New Bag/Syringe/Bottle 08/09/2021 11:05 AM EDT 30 mL/hr 30 mL/hr Additional Source Comments (unrecognized sect ion and content) No Status Records FoundNo Status Records FoundNo Status Records FoundNo Status Records FoundNo Status Records Found INFORMATION SOURCE (unrecogn ized section and content) DATE CREATED AUTHOR AUTHOR'S ORGANIZ ATION 06/18/2020 [address] [facility] DATE CREATED AUTHOR AUTHOR'S ORGANIZ ATION 07/05/2020 [facility] DATE CREATED AUTHOR AUTHOR'S ORGANIZ ATION 08/10/2021 [facility] DATE CREATED AUTHOR AUTHOR'S ORGANIZ ATION 09/14/2021 [facility] Source Comments (unrecognize d section and content) In the event this informatio n is protected by the Federal Confidentiality of Alcohol and Drug Abuse Patient Records regulations: The Federal rules restrict any use of the information to criminally investigate or prosecute any alcohol or drug abuse patient.[facility] the event this information is protected by the Federal Confidentiality of Alcohol and Drug Abuse Patient Records regulations: The Federal rules restrict any use of the information to criminally investigate or prosecute any alcohol or drug abuse patient.[facility] the event this information is protected by the Federal Confidentiality of Alcohol and Drug Abuse Patient Records regulations: The Federal rules restrict any use of the information to criminally investigate or prosecute any alcohol or drug abuse patient.[facility] Reason for Visit (unrecogniz ed section and content) Reason Comments Follow Up colonoscopy Care Teams (unrecognized sec tion and content) Drum Sander Relationship Specialty Start Date End Date Benitez Root, [address] [place], [place] [id number] PCP - General Family Practice 05/30/21 Drum Sander Relationship Specialty Start Date End Date Benitez Root DO [address] [place] [place], [place] [phone] PCP - General Family Practice 05/30/21 FOR RECORDS PERTAINING TO PATIENTS WHO ARE OR HAVE BEEN ENROLLED IN A CHEMICAL DEPENDENCY/SUBSTANCEABUSE PROGRAM, SOME INFORMATION MAY BE OMITTED. This clinical summary was aggregated from multiple sources. Caution should be exercised in using it in the provision of clinical care. This summary normalizes information from multiple sources, and as a consequence, information in this document may materially change the coding, format and clinical context of patient data. In addition, data may be omitted in some cases. CLINICAL DECISIONS SHOULD BE BASED ON THE PRIMARY CLINICAL RECORDS. [facility]. provides no warranty or guarantee of the accuracy or completeness of information in this document.
== END | disposition home or self-care (01) ==
LOC: MTLAB 08:35
PROVIDERS: PCP Family Medicine; Referring Provider Urology; Visit Provider Urology
DX: C61 Malignant neoplasm of prostate (principal)
CPT/HCPCS: 36415; 84153

== ENCOUNTER → 2023-07-26 | Outpatient (CLI) | payer OTHER, SELFPAY ==
[2023-07-26 10:30] LABS: Absolute Lymphocyte Count 1.09 X10^3/uL (0.83-4.51); Absolute Neutrophil Count 4.9 X10^3/uL (2.0-7.7); Basophil# 0.02 X10^3/uL; Basophil% 0.3 % (0-1); Eosinophil# 0.22 X10^3/uL; Eosinophils% 3.2 % (0-5); Hematocrit 40.4 % (40-54); Hemoglobin 14.1 g/dL (13.0-16.5); Lymphocyte # 1.09 X10^3/ul (0.83-4.51); Mean Corp Hgb Conc 34.9 g/dL (32-36); Mean Corpuscular Hgb 30.5 pg (27.0-32.0); Mean Corpuscular Volume 87.4 fL (80-94); Mean Platelet Vol. 9.1 fl (6.2-12.0); Monocyte# 0.56 X10^3/uL; Monocyte% 8.2 % (0-10); NRBC Flagged by Analyzer 0 % (0-5); Neutrophil % 71.9 % (47-70); Platelet Count 207 K/mm3 (150-450); RBC Distribution Width CV 13.1 % (11.6-14.6); RBC Distribution Width SD 41.9 fl (35.1-43.9); Red Blood Count 4.62 M/mm3 (4.6-6.2); White Blood Count 6.8 K/mm3 (4.4-11.0)
[2023-07-26 11:10] LABS: Microalbumin,Random Urine 34.9 mg/L (NO RANGE EST.); Microalbumin:Creatinine Ratio 20.2 mg/g CRE (<30 mg/g CRE)
[2023-07-26 11:14] LABS: ALB/GLOB Ratio 1.1 RATIO (0.9-2.4); AST(SGOT) 20 U/L (15-37); Alanine Aminotransfer ALT/SGPT 30 U/L (16-61); Albumin, Serum 3.8 g/dL (3.2-5.0); Alkaline Phosphatase 86 U/L (45-117); Anion Gap 4 (5-15); BUN 13 mg/dL (7-18); BUN/Creat Ratio 15.5 RATIO (10-20); Calcium,Total 8.9 mg/dL (8.5-10.1); Chloride 106 mmol/L (98-107); Cholesterol 102 mg/dL (200); Creatinine, Serum 0.84 mg/dL (0.70-1.30); EST Glomerular Filtration Rate 96 mL/min (>60); Est Glom Filt Rate - Afr Amer 116 mL/min (>60); Globulin 3.5 g/dL (2.2-4.2); Glucose 123 mg/dL (74-106); High Density Lipoprotein 40 mg/dL; Potassium 4.2 mmol/L (3.5-5.1); Protein, Total 7.3 g/dL (6.4-8.2); Sodium Level 138 mmol/L (136-145); Triglycerides 61 mg/dL; Very Low Density Lipoprotein 12 mg/dL (5-40)
[2023-07-26 11:17] LABS: Hemoglobin A1c 5.5 % (3.8-5.6)
== END | disposition home or self-care (01) ==
LOC: MTLAB 08:07
PROVIDERS: PCP Family Medicine; Referring Provider Family Medicine; Visit Provider Family Medicine
DX: E11.21 Type 2 diabetes mellitus with diabetic nephropathy (principal); I25.10 Atherosclerotic heart disease of native coronary artery without angina pectoris
CPT/HCPCS: 36415; 80053; 80061; 82043; 82570; 83036; 85025

== ENCOUNTER → 2023-10-08 | Outpatient (CLI) | payer OTHER, SELFPAY ==
[2023-10-08 12:52] LABS: PSA,Total- Diagnostic 0.09 ng/mL (0.0-4.0)
== END | disposition home or self-care (01) ==
LOC: MTLAB 10:24
PROVIDERS: PCP Family Medicine; Referring Provider Nurse Practitioner; Visit Provider Nurse Practitioner
DX: C61 Malignant neoplasm of prostate (principal)
CPT/HCPCS: 36415; 84153

== ENCOUNTER → 2024-10-05 | Outpatient (CLI) | payer OTHER, SELFPAY ==
--- OUTSIDE RECORDS SUMMARY | 2024-10-05 07:10 | XMS RPT_ITS | CCD ---
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 Justice Root Primary Care Provider [phone] Siena Sotelo Attending Provider Unavailable Dr. Justice Root Referring Provider Dr. Noé Pickering Attending Provider [phone] You Alva Attending Provider [phone] Dr. Alan Johnston Referring Provider [phone] Dr. Justice Root Primary Care Provider [phone] Dr. You Alva Attending Provider Dr. You Alva Referring Provider [phone] Dr. Justice Root Referring Provider [phone] OakdaleElayne Attending Unavailable OakdaleElayne Referring Unavailable Justice Root Primary Care Unavailable Justice Root Attending Unavailable Justice Root Referring Unavailable Justice Root Primary Care Unavailable Alan Johnston Referring Unavailable You Alva Attending Unavailable Justice Root Primary Care Unavailable Justice Root Referring Unavailable Noé Pickering Attending Unavailable Justice Root Primary Care Unavailable Justice Root Referring Unavailable Justice Root Primary Care Unavailable You Alva Attending Unavailable Allergies Allergy Classification Reported Allergen(s) Allergy Type Date of Onset Reaction(s) Facility (3 sources) Angiotensin-con verting enzyme inhibitor agent Propensity to adverse reactions 9 Cough [facility] (3 sources) Iodine Drug Allergy 9 Hives [facility] (10 sources) Iodinated Contrast Media; Translations: [Iodinated Contrast Media] Allergy to substance 2 Hives and Vomiting [facility] Medications Current Medications Medication Drug Class(es) Dates Sig (Normalized) Sig (Original) atorvastatin 40 mg oral tablet (20 sources) HMG-CoA Reductase Inhibitor Start: 06-09-2021 End: 11-04-2022 take 40 mg by mouth once daily Atorvastatin Active 40 MG PO DAILY 90 November 04, 2022 7:11am Start: 01-13-2015 End: 06-09-2021 take 20 mg by mouth at bedtime Atorvastatin Discontinu ed 20 MG PO AT BEDTIME January 12, 2015 11:00pm June 09, 2021 2:39pm Comment on above: Take 40 mg by mouth once daily. calcium carbonate 1500 mg / cholecalciferol 0.01 mg oral capsule (7 sources) Vitamin D Start: 07-24-2021 take 1 capsule by mouth once daily Calcium Carbonate-Vitami n D3 Active 1 CAP PO DAILY July 24, 2021 9:07am Start: 07-24-2021 take 1 capsule by mo [facility] twice daily Calcium Carbonate-Vitamin D3 Active 1 CAP PO TWICE A DAY July 23, 2021 11:00pm ciprofloxacin 500 mg oral tablet (7 sources) Quinolone Antimicrobial Start: 08-16-2021 take 1 tablet by mouth twice daily Ciprofloxacin Hcl (Cipro) 500 mg tablet Active 500 MG PO TWICE A DAY August 15, 2021 11:00pm Comment on above: Take 500 mg by mouth twice daily. losartan potassium 100 mg oral tablet (20 sources) Angiotensin 2 Receptor Lakisha Start: 06-09-2021 take 100 mg by mouth once daily Losartan Active 100 MG PO DAILY June 08, 2021 11:00pm Start: 01-13-2015 End: 06-09-2021 take 50 mg by mouth once daily Losartan Discontinued 5 0 MG PO DAILY January 12, 2015 11:00pm June 09, 2021 2:39pm Comment on above: TAKE 1 TABLET ONCE D AILY metFORMIN hydrochloride 500 mg oral tablet (20 sources) Biguanide Start: 06-09-2021 take 1000 mg by mouth twice daily Metformin Active 1000 MG PO TWICE A DAY June 08, 2021 11:00pm Start: 11-16-2016 metFORMIN (GLU COPHAGE) 500 mg tablet TAKE 2 TABLETS TWICE A DAY WITH MEALS 360 tablet 0 11/16/2016 Active Start: 01-13-2015 End: 06-09-2021 take 1000 mg by mouth twice daily at mealtime Metformin Discontinued 1000 MG PO TWICE DAILY WITH MEALS January 12, 2015 11:00pm June 09, 2021 2:39pm Comment on above: TAKE 2 TABLETS TWICE A DAY WITH MEALS polyethylene glycol 3350 888399 mg / potassium chloride 2970 mg / sodium bicarbonate 6740 mg / sodium chloride 5860 mg / sodium sulfate 61760 mg powder for oral solution (1 source) Osmotic Laxative Start: 06-20-19 End: 06-20-19 peg 3350-Electrolytes (GOLYTELY) 236-22.74-6.74 -5.86 gram suspension Take 4,000 mL by mouth one time only for 1 dose. 1 Each 0 06/19/2021 06/19/2021 Active Comment on above: Take 4,000 mL by emiliano one time only for 1 dose. RABEprazole sodium 20 mg delayed release oral tablet (12 sources) Proton Pump Inhibitor Start: 08-09-19 17 take 1 tablet by mouth once daily Rabeprazole (Aciphex) 20 mg tablet,delayed release (DR/EC) Active 20 MG PO DAILY June 08, 2021 11:00pm Comment on above: TAKE 1 TABLET ONCE D AILY 1 mg dose 1.5 ml semaglutide 1.34 mg/ml pen injector (1 source) Start: 10-09-19 Semaglutide (Ozempic) 1 mg/dose (2 mg/1.5 mL) pen injector Active 1 MG SC EVERY WEEK October 07, 2022 11:00pm triamcinolone acetonide 0.055 mg/actuat metered dose nasal spray (9 sources) Corticosteroid Start: 06-10-19 22 take 1 spray(s) nasal route once daily Triamcinolone Acetonide (Nasacort Allergy) 55 mcg aerosol,spray Active 2 SPRAY INTRANASAL DAILY June 08, 2021 11:00pm administer into each nostril Completed/Discontinued Medications Medication Drug Class(es) Dates Sig (Normalized) Sig (Original) aspirin 81 mg delayed release oral tablet (6 sources) Platelet Aggregation Inhibitor, Nonsteroidal Anti-inflammatory Drug Start: 10-18-2008 ASPIRIN 81 MG TAB, DELAYED RELEASE Indications: Type II or unspecified type diabetes mellitus without mention of complication, not stated as uncontrolled Take one(1) tablet daily. 0 10/18/2008 Active Comment on above: Take one(1) tablet d aily. ticagrelor 90 mg oral tablet (1 source) End: 06-13-2021 take 1 tablet by mouth twice daily ticagrelor (BRILINTA) 90 mg tablet Take 90 mg by mouth twice daily. 0 06/13/2021 Discontinued (Course of therapy completed) Comment on above: Take 90 mg by mouth twice daily. Problems Active Problems Problem Classification Problem Date Documented Date Episodic/Chronic Cancer of prostate (16 sources) Primary malignant neoplasm of prostate; Translations: [Malignant neoplasm of prostate] Onset: 04-14-2024 Chronic Coronary atherosclerosis and other heart disease (13 sources) Coronary atherosclerosis; Translations: [Atherosclerotic heart disease of [place] coronary artery without angina pectoris] Onset: 10-09-2016 10-09-2016 Chronic Diabetes mellitus with complications (1 source) Type 2 diabetes mellitus with diabetic nephropathy; Translations: [Type 2 diabetes mellitus with diabetic nephropathy] Onset: 07-28-2024 Chronic Diabetes mellitus without complication (12 sources) Diabetes mellitus; Translations: [Type 2 diabetes mellitus without complications] 12-27-2014 Chronic Digestive congenital anomalies (1 source) Tortuous colon; 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 Disorders of lipid metabolism (18 sources) Hyperlipidemia; Translations: [Hyperlipidemia, unspecified] Onset: 07-28-2024 12-27-2014 Chronic Esophageal disorders (4 sources) Gastroesophageal reflux disease; Translations: [Gastro-esophageal reflux disease without esophagitis] Chronic Essential hypertension (18 sources) Benign essential hypertension; Translations: [Essential (primary) hypertension] Onset: 07-28-2024 10-18-2008 Chronic Other and unspecified benign neoplasm (2 sources) History of polyp of colon; Translations: [Personal history of colonic polyps] Episodic Other and unspecified benign neoplasm (1 source) Serrated polyp of colon; Translations: [Polyp of colon] Episodic Other nutritional; endocrine; and metabolic disorders (9 sources) Obesity; Translations: [Obesity, unspecified] 06-13-2021 Chronic Other screening for suspected conditions (not mental disorders or infectious disease) (1 source) Patient encounter status; Translations: [Encounter for screening for malignant neoplasm of colon] Episodic Residual codes; unclassified (12 sources) Obstructive sleep apnea syndrome; Translations: [Obstructive sleep apnea (adult) (pediatric)] 12-27-2014 Chronic Past or Other Problems Problem Classification Problem Date Documented Da te Episodic/Chronic Coronary atherosclerosis and other heart disease (5 sources) Presence of coronary angioplasty implant and graft; Translations: [Percutaneous transluminal coronary angioplasty status] Onset: 10-16-2016 Episodic Other and unspecified benign neoplasm (3 sources) Adenomatous polyp of colon ; Translations: [Benign neoplasm of colon, unspecified] Onset: 12-11-2011 12-11-2011 Episodic Results Test Name Value Interpretation Reference Range Facility PSA,Total- Diagnosticon 03-19 PSA, DIAGNOSTIC 0.08 ng/mL Normal 0.0-4.0 [facility] Comment on above: Result Comment: This test was performed using the TPSA assay method for the [employer] system. Values obtained with different assay methods cannot be used interchangably. When changing PSA assays in the course of monitoring a patient, additional sequential testing should be carried out to confirm baseline values. Performed By: #### L [id number] #### [facility] [address] [place], [address] Radiation Oncology Visiton 0 04-14-2024 Radiation Oncology Visit [facility] [address] [place] [address] OFFICE VISIT Date of Service: 04/14/24 1513 MR#: [id number] Acct: [id number] Name: PRANAV ALICEA Rep #: [id number] : 1955 From: You Alva DO Age/Sex: 68/M [place] [facility] [place]: Signed Intake Vital Signs 08/20/23 09:11 04/14/24 15:16 04/14/24 15:20 Height 6 ft 6 ft 6 ft Weight: 247 lb 7 oz BMI 33.5 BP 121/76 H Blood Pressure Location Rt brachial Position Sitting Respiration 18 Pulse 84 Pulse Source Monitor Temp 98.8 F Temperature Source Temporal Artery Pulse Oximetry (%) 94 Oxygen Delivery Method room air Intake Visit Reasons: 1 YR F/U PROSTATE, PSA PRIOR Is patient in pain?: No Allergies Iodinated Contrast Media Allergy (Severe, Verified 04/14/24 15:15) Hives and Vomiting Medications ???Medication ???Instructions ???Recorded ???Confirmed ???Type losartan 100 mg tablet 100 mg PO DAILY 06/09/21 04/14/24 History rabeprazole 20 mg tablet,delayed 20 mg PO DAILY 06/09/21 04/14/24 History release (AcipHex) semaglutide 1 mg/dose (2 mg/1.5 1 mg subcut QWEEK 10/08/22 04/14/24 History mL) subcutaneous pen injector (Ozempic) atorvastatin 40 mg tablet 40 mg PO DAILY #90 tabs 10/22/23 04/14/24 Rx Have you fallen in the past year?: No PFSH PFSH Medical History Wears glasses Cancer Diabetes Arthritis High cholesterol Gastric reflux Cardiology follow-up encounter History of non-ST elevation myocardial infarction (NSTEMI) (10/05/16) Obesity Skin cancer Right cervical radiculopathy Degenerative disc disease, cervical Obstructive sleep apnea Hyperlipidemia Essential hypertension Atherosclerotic heart disease of [place] coronary artery without angina pectoris Diabetes mellitus type II, controlled Home Medications ???Medication ???Instructions ???Recorded ???Last Taken ???Type losartan 100 mg tablet 100 mg PO DAILY 06/09/21 08/16/21 History rabeprazole 20 mg tablet,delayed 20 mg PO DAILY 06/09/21 Unknown History release (AcipHex) semaglutide 1 mg/dose (2 mg/1.5 1 mg subcut QWEEK 10/08/22 Unknown History mL) subcutaneous pen injector (Ozempic) atorvastatin 40 mg tablet 40 mg PO DAILY #90 tabs 10/22/23 Unknown Rx Allergy/AdvReac Type Severity Reaction Status Date / Time Iodinated Contrast Media Allergy Severe Hives and Verified 04/14/24 15:15 Vomiting Family History Mother History of defect Arthritis COPD (chronic obstructive pulmonary disease) Father , Age 67 from CAD CAD (coronary artery disease) Myocardial infarction, Onset Age: 47 Hypertension Hyperlipidemia Uncle CAD (coronary artery disease) Myocardial infarction, Onset Age: 49 Sister History of defect Surgical History Hx of colonoscopy History of coronary artery stent placement (10/16/16) Status post surgical removal of malignant neoplasm of skin (2013) History of vocal cord polypectomy (1999) Social History household members: spouse Smoking Status: Never smoker alcohol intake: current alcohol intake frequency: a few times a week Alcohol type: beer substance use type: does not use diet: diabetic caffeine: Yes Type: coffee Number of servings: 1 what type of physical activity do you participate in: walking Diagnosis: Pranav Alicea is a 67-year-old male diagnosed with 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 From 09/11/2021 ??? 10/19/2021 he received definitive radiation therapy to the prostate with concurrent short term ADT. History of Present Illness: 06/20/2021: Patient underwent TRUS guided prostate biopsy.??? Pathology demonstrated [place] 3+3 adenocarcinoma involving 25% of 1 core of the prostate apex, [place] 3+4 adenocarcinoma involving 50% of 2 cores in the right prostate mid, 30% of 2 cores in the right prostate base, 80% of 1 core in the left prostate apex, 25% of 2 cores involving the left prostate mid, and 20% of 2 cores involving the left prostate base. 07/06/2021: Patient was evaluated by urology.??? Reviewed results of prostate biopsy and treatment options. 07/17/2021: Bone scan was performed.??? This demonstrated no evidence of metastatic disease. 07/31/2021: CT A/P completed which demonstrated no evidence of abnormality.??? From 09/11/2021 ??? 10/19/2021: received 7000 cGy of 10 MV photons in 28 fractions to the prostate and SVs with a VMAT technique. Radiation Treatment History: 1) From 09/11/2021 ??? 10/19/2021: received 700 (more content not included)... Normal [facility] PSA,Total- Diagnosticon 09-16 PSA, DIAGNOSTIC 0.09 ng/mL Normal 0.0-4.0 [facility] Comment on above: Result Comment: This test was performed using the TPSA assay method for the [employer] chemistry system. Values obtained with different assay methods cannot be used interchangably. When changing PSA assays in the course of monitoring a patient, additional sequential testing should be carried out to confirm baseline values. Performed By: #### L [id number] #### [facility] [address] [place], [address] Cardiology Visit Reporton Cardiology Visit Report [facility] [address] [place] [address] OFFICE VISIT Date of Service: 08/20/23 MR#: [id number] Acct: [id number] Name: PRANAV ALICEA Rep #: [id number] : 1955 Provider: Dr. Noé Pickering MD Age/Sex: 68/M Location: [facility] Status: Signed HPI HPI History of Present Illness Details: 68-year-old man with previous cardiac history significant for hypertension, coronary disease status post previous angioplasty and stenting after a non-ST elevation myocardial infarction in September 2016. He had a drug-eluting stent placed to the mid left anterior descending artery as a staged procedure and also had a drug-eluting stent placed to the second obtuse marginal branch. He has been compliant with his medications he denies any chest pain or shortness breath or paroxysmal nocturnal dyspnea or pedal edema no neck arm or jaw discomfort suggest angina. He did have a Lexiscan stress test in February 2020 with no evidence of ischemia. He has been compliant with his medications his blood pressure has been normal in the office but is mildly elevated today. His physical exam here is unremarkable. He tells me that he had some issues with prostate cancer but that has resolved. He is also lost some weight which is commendable. 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 Required: No Accompanied by: Self Is patient in pain?: No Allergies Iodinated Contrast Media Allergy (Severe, Verified 08/20/23 09:12) Hives and Vomiting Medications ???Medication ???Instructions ???Recorded ???Confirmed ???Type losartan 100 mg tablet 100 mg PO DAILY 06/09/21 08/20/23 History rabeprazole 20 mg tablet,delayed 20 mg PO DAILY 06/09/21 08/20/23 History release (AcipHex) semaglutide 1 mg/dose (2 mg/1.5 1 mg subcut QWEEK 10/08/22 08/20/23 History mL) subcutaneous pen injector (Ozempic) atorvastatin 40 mg tablet 40 mg PO DAILY #90 tabs 11/04/22 08/20/23 Rx PFSH Medical History Wears glasses Cancer Diabetes Arthritis High cholesterol Gastric reflux Cardiology follow-up encounter History of non-ST elevation myocardial infarction (NSTEMI) (10/05/16) Obesity Skin cancer Right cervical radiculopathy Degenerative disc disease, cervical Obstructive sleep apnea Hyperlipidemia Essential hypertension Atherosclerotic heart disease of [place] coronary artery without angina pectoris Diabetes mellitus type II, controlled Surgical History Hx of colonoscopy History of coronary artery stent placement (10/16/16) Status post surgical removal of malignant neoplasm of skin (2013) History of vocal cord polypectomy (1999) Family History Mother History of defect Arthritis COPD (chronic obstructive pulmonary disease) Father , Age 67 from CAD CAD (coronary artery disease) Myocardial infarction, Onset Age: 47 Hypertension Hyperlipidemia Uncle CAD (coronary artery disease) Myocardial infarction, Onset Age: 49 Sister History of defect Social History household members: spouse Smoking Status: Never smoker alcohol intake: current alcohol intake frequency: a few times a week Alcohol type: beer substance use type: does not use diet: diabetic caffeine: Yes Type: coffee Number of servings: 1 what type of physical activity do you participate in: walking ROS Const Const: Negative for fatigue, weakness, headache(s), daytime sleepiness or difficulty sleeping ENT ENT: Negative for headache(s), dizziness or Nosebleed/epistaxis Cardio Chest Pain: No Palpitations: No Edema: None Resp Respiratory: Negative for SOB with activity, SOB at rest, SOB orthopnea SOB lying down or Cough GI GI: Negative nausea, vomiting or heartburn Neuro Neuro: Negative for dizziness, lightheadedness, near syncope, headache(s) or weakness Endo Endo: Negative for fatigue Cardiology Exam Const Appearance: cooperative, healthy appearing, no acute distress, well developed and well groomed Nutritional Appearance: average body habitus and well nourished Orientation: alert, awake and oriented x3 Head Head: normal to inspection, normocephalic and atraumatic Ears: hearing grossly normal bilaterally (more content not included)... Normal [facility] No Panel InformationOrdered By: Alan Johnston on 04-01-2023 Prostate Specific Antigen Total 0.10 ng/mL 0.0-4.0 [facility] Comment on above: This test was perfor med using the TPSA assay method for the[employer] chemistry system. Values obtained with differentassay methods cannot be used interchangably.When changing PSA assays in the course of monitoring apatient, additional sequential testing should be carriedout to confirm baseline values. Basophil percentageOrdered B y: Justice Root on 09-28-2022 Cholesterol [Mass/Vol] 80 mg/dL <200 [facility] Comment on above: <200 mg/dL Desirable 200-240 mg/dL Borderline >240 mg/dL High Risk Triglyceride [Mass/Vol] 150 mg/dL <199 [facility] Comment on above: The drugs N-Acetylcy steine and Metamizole may falsely depress this assay.Serum Triglycerides Reference Interval Normal <150 mg/dL Borderline high 150 - 199 mg/dL High 200 - 499 mg/dL Very High > or = 500 mg/dL No Panel InformationOrdered By: Justice Root on 09-28-2022 Prostate Specific Antigen Total 0.17 ng/mL 0.0-4.0 [facility] Comment on above: This test was perfor med using the TPSA assay method for the[employer] chemistry system. Values obtained with differentassay methods cannot be used interchangably.When changing PSA assays in the course of monitoring apatient, additional sequential testing should be carriedout to confirm baseline values. Serum or plasma cholesterol in HDL measurement (mass/volume)Ordered By: Justice Root on 09-28-2022 Cholesterol in HDL [Mass/Vol] 33 mg/dL >40 [facility] Comment on above: The drugs N-Acetylcy steine and Metamizole may falsely depress this assay. Reference Range HDL <40 mg/dL Low HDL Cholesterol HDL >or= 60 mg/dL High HDL Cholesterol Serum or plasma cholesterol in VLDL measurement (mass/volume)Ordered By: Justice Root on 09-28-2022 Cholesterol in VLDL [Mass/Vol] 30 mg/dL 5-40 [facility] Serum or plasma low density lipoprotein (LDL) cholesterol measurement (mass/volume)Ordered By: Justice Root on 09-28-2022 Cholesterol in LDL [Mass/Vol] 17 mg/dL 0-130 [facility] No Panel InformationOrdered By: Dr. Johnston on 04-06-2022 Prostate Specific Antigen Total 0.02 ng/mL 0.0-4.0 [facility] Comment on above: This test was perfor med using the TPSA assay method for [employer] chemistry system. Values obtained with differentassay methods cannot be used interchangably.When changing PSA assays in the course of monitoring apatient, additional sequential testing should be carriedout to confirm baseline values. CNOVon 08-23-2021 CNOV Office Visit (GENCARLOS ) ----- PRANAV ALICEA ([id number]) 1955 M Date Time Provider Department 08/23/21 10:00 AM ES YIP During your visit today, we recorded the following information about you: Temperature Pulse Blood pressure Weight 97.5 degrees 104/minute 132/72 113.4 kg Height 1.829 m Es Yip PA-C 08/29/2021 1:09 PM Signed FOLLOW UP VISIT - ENDOSCOPY NAME: Pranav Mohan Deanne CLINIC NO.: [id number] DATE OF SERVICE: 08/23/2021 : 1955 REFERRING PHYSICIAN: Justice Root DO Pranav is a patient I [...] use. No record of EGD completion in [facility]. Reviewed with patient, who denies having any [...] which included preparing to see the patient, [id number] patient care, completing clinical documentation, obtaining and/or reviewing separately obtained history, counseling and educating the patient/family/caregiver, independently interpreting results (not separately reported) and communicating results to the patient/family/caregiver. __ BAN Sykes PA-C 08/23/2021 10:17 AM Signed The following instructions are important for you related to your office visit today with the [facility]. INSTRUCTIONS FOLLOWING A POLYP FOUND [...] you should contact our office immediately @ [phone] and ask to be transferred to the General Surgery department. Referring Provider: JUSTICE ROOT [[id number]] Allergies As of Date: 08/23/2021 Noted Allergy Reaction KATY INHIBITORS 10/18/2008 3 - Cough IODINE 10/18/2008 4 - Hives Date Reviewed: 08/23/2021 Reviewed by: Es Yip PA-C - Fully Assessed Reason for Visit: Follow Up [171] Cmt: colonoscopy Primary Visit Diagnosis:Serrated polyp of colon [K63.5] Prescriptions as of 08/29/2021 - ciprofloxacin HCl (CIPRO) 500 mg tablet Take 500 mg by mouth twice daily. - atorvastatin (LIPITOR) 40 mg tablet Take 40 mg by mouth once daily. - losartan (COZAAR) 50 mg tablet TAKE 1 TABLET ONCE DAILY - metFORMIN (GLUCOPHAGE) 500 mg tablet TAKE 2 TABLETS TWICE A DAY WITH MEALS - atorvastatin (LIPITOR) 40 mg tablet Take 40 mg by mouth once daily. - RABEprazole (ACIPHEX) 20 mg tablet TAKE 1 TABLET ONCE DAILY - blood sugar diagnostic (BLOOD GLUCOSE TEST) test strip Test blood sugar(s) 2 times daily. Dx: 250.02. Insulin: No - Lancets lancets Test blood sugar(s) 2 times daily. Dx: 250.02. Insulin: No - ASPIRIN 81 MG TAB, DELAYED RELEASE Take one(1) tablet daily. Meds Comments as of 12/11/2011: Problem List As Of Date 08/23/2021 Noted Resolved Hyperlipidemia [E78.5] Diabetes mellitus (HCC) [E11.9] BENIGN HYPERTENSION [I10] ESOPHAGEAL REFLUX [K21.9] SUSIE on CPAP [G47.33, Z99.89] Adenomatous colon polyp [D12.6] 12/11/2011 Open wound(s) (multiple) of unspecified site(s)*11/02/2013 12/27/2014 Coronary artery disease involving [place] hardy*10/09/2016 Other instructions from your clinician: The following instructions are import (more content not included)... [facility] Basophil percentageon 2021 Basophil percentage < 0.9 mg/dL 0.70-1.30 [facility] Work Phone: No Panel Informationon 08-22 Bedside Estimated GFR (eGFR) > 60.0000 mL/min >60 [facility] Work Phone: Glucose Glucometer (BldC) [M ass/Vol]on 08-16-2021 Glucose [Mass/Vol] 140 mg/dL 74-106 [facility] Work Phone: Comment on above: MANAGEMENT OF BRENDEN T CARE PER NURSING PROTOCOL ANES POSTPROC EVALon 022 ANES POSTPROC EVAL HNO ID: [id number] Author: Bhavna Dubon MD Service: Anesthesiology Author Type: Anesthesiologist Type: Anesthesia Postprocedure Evaluation Filed: 08/09/2021 2:04 PM Note Text: POST ANESTHESIA EVALUATION NOTE : 1955 Procedure Summary Date: 08/09/21 Room / Location: [facility] Anesthesia Start: 1208 Anesthesia Stop: 1242 Procedure: COLONOSCOPY SCREENING Diagnosis: History of colon polyps (Screening for colorectal malignant neoplasm) Scheduled Providers: Clinton Kramer MD; Em Tristan APRN.[employer]; Bhavna Dubon MD Responsible Provider: Bhavna Dubon MD Anesthesia Type: MAC ASA Status: 3 Anesthesia Type: MAC Last Vitals Vitals Value Taken Time BP 147/85 08/09/21 1308 Temp 36.5 ?C (97.7 ?F) 08/09/21 1308 Pulse 75 08/09/21 1311 Resp 17 08/09/21 1311 SpO2 93 % 08/09/21 1311 Vitals shown include unvalidated device data. Post Anesthesia Patient Status Patient Evaluation: PACU. PACU/ICU Patient Condition: stable. Anticipated Disposition: phase 2 then home. Neurological Status: aware and responsive. Pulmonary Status: breathing comfortably on room air Airway Control: returned to baseline unsupported. Cardiovascular Status: stable. Pain Management: clinically adequate - multimodal analgesia pain management approach Postoperative Hydration: acceptable. Intraoperative Events: no significant anesthesia events Post Operative Nausea/Vomiting Status: no significant post operative nausea or vomiting Anesthetic Observations: Recommendation: continue current plan of care. Anesthesia Observations No Documentation SIGNATURE: Bhavna Dubon MD PATIENT NAME: Pranav Alicea DATE: August 09, 2021 TIME: 2:04 PM CSN: [id number] Normal [facility] ANES PRE-OPon 08-09-2021 ANES PRE-OP HNO ID: [id number] Author: Bhavna Dubon MD Service: Anesthesiology Author Type: Anesthesiologist Type: Anesthesia Preprocedure Evaluation Filed: 08/09/2021 12:03 PM Note Text: ANESTHESIOLOGY DAY OF SURGERY NOTE : 1955 Procedure Information Date/Time: 08/09/21 1230 Scheduled providers: Clinton Kramer MD; Em Tristan APRN.[employer]; Bhavna Dubon MD Procedure: COLONOSCOPY SCREENING Location: [facility] Estimated body mass index is 34.72 kg/m? as calculated from the following: Height as of 06/13/21: 182.9 cm (6'). Weight as of 06/13/21: 116.1 kg (256 lb). Most recent hematocrit and potassium results: Potassium 4.0 11/20/2016 Relevant Problems ANESTHESIA (+) SUSIE on CPAP CARDIO (+) Coronary artery disease involving twin hills coronary artery of twin hills heart without angina pectoris (+) Essential hypertension, benign GI (+) Esophageal reflux PULMONARY (+) SUSIE on CPAP I - PHYSICAL EVALUATION AIRWAY Patient intubated: No. Tracheostomy tube not present Mallampati: III. TM distance: >3 FB. Neck ROM: full ROM without neurological symptoms. Mouth opening: adequate. Short neck: no. Thick neck: no DENTAL Dental findings: teeth intact. Additional exam findings: yes. CARDIOVASCULAR Rhythm: regular PULMONARY Breath sounds clear to auscultation. II - ANESTHESIA PLAN ASA Score: 3 Anesthetic Plan: MAC The patient is not a current smoker. Monitoring plan: standard ASA. Postoperative analgesic plan: multimodal analgesia. Patient / Surrogate agrees to blood products: blood products not planned DNR status not reviewed with patient and/or family prior to surgery. Significant changes in the patient condition since the History and Physical, not otherwise documented in primary service progress note: no. Potential Anesthesia issues that may suggest increased risk of complications or contraindication to planned procedure: none. Vitals Value Taken Time BP 160/84 08/09/21 1059 Pulse 89 08/09/21 1059 Resp 18 08/09/21 1059 Temp 36.6 ?C (97.9 ?F) 08/09/21 1059 SpO2 100 % 08/09/21 1059 Outpatient Medications as of 08/09/2021 Medication Sig - losartan (COZAAR) 50 mg tablet TAKE 1 TABLET ONCE DAILY (Patient taking differently: 100 mg. ) - metFORMIN (GLUCOPHAGE) 500 mg tablet TAKE 2 TABLETS TWICE A DAY WITH MEALS - atorvastatin (LIPITOR) 40 mg tablet Take 40 mg by mouth once daily. - RABEprazole (ACIPHEX) 20 mg tablet TAKE 1 TABLET ONCE DAILY - atorvastatin (LIPITOR) 40 mg tablet Take 40 mg by mouth once daily. - blood sugar diagnostic (BLOOD GLUCOSE TEST) test strip Test blood sugar(s) 2 times daily. Dx: 250.02. Insulin: No - Lancets lancets Test blood sugar(s) 2 times daily. Dx: 250.02. Insulin: No - ASPIRIN 81 MG TAB, DELAYED RELEASE Take one(1) tablet daily. (Patient not taking: DO NOT crush. ) Facility-Administered Medications as of 08/09/2021 Medication Dose Route Frequency - lactated ringers iv infusion 30 mL/hr INTRAVENOUS CONTINUOUS I have interviewed and examined the patient. I have reviewed the medical record and/or the pre-anesthesia evaluation, pertinent labs, and test results. This contains updated information obtained within 48 hours of Surgery/Procedure. SIGNATURE: Bhavna Dubon MD PATIENT NAME: Pranav Alicea DATE: August 09, 2021 TIME: 12:02 PM CSN: [id number] Normal [facility] COLONOSCOPY SCREENINGon 07-17 [facility] GLUCOSE, BLOOD (POC)on 08-09 Glucose [Mass/Vol] 117 mg/dL Abnormal 74 - 99 mg/dL [facility] Glucose [Mass/Vol] 134 mg/dL Abnormal 74 - 99 mg/dL [facility] HISTORY PHYSICALon HISTORY PHYSICAL HNO ID: [id number] Author: Clinton Kramer MD Service: General Surgery Author Type: Physician Type: HANDP Filed: 08/09/2021 12:14 PM Note Text: HISTORY AND PHYSICAL ? Pranav Alicea 1955 ? REFERRING PHYSICIAN: Self ? CHIEF COMPLAINT: Consult (Colonoscopy) ? HPI: The patient is a 65 year old male referred for endoscopy. Patient notes some recent slightly irregular bowel habits. Denies weight changes, blood in stools, black tarry stools or abdominal pain. Denies family history of colon issues. ? The patient NOTES upper GI complaints-acid reflux for which he has been maintained on a PPI long-term. Denies having EGD in the past. ? Pranav has undergone prior endoscopy. Had prior endoscopy by Dr. Hu in 2011, scope could not be advanced past hepatic flexure. Had polyp removed at that time and was also noted to have redundant colon. Polyp returned as sessile serrated polyp. He required a follow-up barium enema. ? Past medical history significant for SD and stent placement, type II diabetes, sleep apnea, hypertension. He is currently being worked up for elevated PSA with upcoming prostate biopsy scheduled. ? ? PAST MEDICAL HISTORY PAST MEDICAL HISTORY Diagnosis Date - Benign neoplasm of rectum and anal canal ? - Diverticulosis of colon (without mention of hemorrhage) ? - Esophageal reflux ? - Essential hypertension, benign ? - Internal hemorrhoids without mention of complication ? - Microalbuminuria ? - Other and unspecified hyperlipidemia ? - Personal history of colonic polyps ? - Type II or unspecified type diabetes mellitus without mention of complication, not stated as uncontrolled ? - Unspecified sleep apnea ? ? CPAP ? ? PAST SURGICAL HISTORY PAST SURGICAL HISTORY Procedure Laterality Date - COLONOSCOPY FLX DX W/COLLJ SPEC WHEN PFRMD ? 12/19/2006 ? Colonoscopy, tubular adenoma-repeat in - COLONOSCOPY FLX DX W/COLLJ SPEC WHEN PFRMD ? 03/03/12 ? Colonoscopy repeat 5 years - PAST SURGICAL HISTORY OF ? ? ? Vocal cord nodule - PAST SURGICAL HISTORY OF ? 09/2016 ? stent ? ? ? CURRENT MEDICATIONS Current Outpatient Medications Medication Sig - atorvastatin [...] (Patient not taking: DO NOT crush. ) ? No current facility-administered medications for this visit. ? ? ALLERGIES: Katy Inhibitors and Iodine ? PERSONAL HISTORY: SOCIAL HISTORY Social History ? Tobacco Use - Smoking status: Never Smoker - Smokeless tobacco: Never Used Substance Use Topics - Alcohol use: Yes ? ? Comment: social - Drug use: No ? FAMILY HISTORY: FAMILY HISTORY FAMILY HISTORY Problem Relation Age of Onset - Coronary Artery Disease Father ? - Diabetes Father ? - Coronary Artery Disease Paternal Uncle ? - Diabetes Paternal Aunt ? ? ? REVIEW OF SYMPTOMS: The review of systems data was entered by the nurse and reviewed by me ? Nursing Notes: Samantha Grove 06/13/2021 4:17 PM [...] control, and denies hernias. Kidney/Bladder: The patient yola (more content not included)... [facility] SURGICAL PATHOLOGYon 022 CASE REPORT [facility] Comment on above: Order Comment: Speci men Type: TISSUE SPECIMEN Ordering Facility: [facility] Address: [address] [place] [id number] Result Comment: Surg ica Pathology Report Case: [id number] Authorizing Provider: Clinton Kramer MD Collected: 08/09/2021 12:37 PM Ordering Location: [facility] Received: 08/09/2021 03:15 PM Pathologist: Daniel Melissa MD Specimen: SIGMOID COLON POLYP Performed By: #### S #### [facility] CLIA [id number] [address] [place] [address] FINAL DIAGNOSIS Normal [facility] Comment on above: Order Comment: Speci men Type: TISSUE SPECIMEN Ordering Facility: [facility] Address: [address] [place] [address] Result Comment: Renata C vangieon, sigmoid polyp, biopsy: -Fragments of sessile serrated polyp. Performed By: #### S #### [facility] CLIA [id number] [address] [place] [address] FINAL PERFORMING LAB Normal [facility] Comment on above: Order Comment: Speci men Type: TISSUE SPECIMEN Ordering Facility: [facility] Address: [address] [place] [address] Result Comment: Diag nostic interpretation performed at [facility], [address] [place] [address] CLIA# [id number] An Employee Sponsor Or Advocate And: Jeramy Martin M.D. Performed By: #### S #### [facility] CLIA [id number] [address] [place] [address] GROSS DESCRIPTION Normal [facility] Comment on above: Order Comment: Speci men Type: TISSUE SPECIMEN Ordering Facility: [facility] Address: [address] [place] [address] Result Comment: A. S IGMOID COLON POLYP. Received in formalin is a segment of avila polypoid tissue measuring 0.9 x 0.6 x 0.3 cm. No stalk is present. The line of resection is noted. The specimen is bisected and totally submitted in cassette A1. Also received in the same container are multiple pieces of avila, soft tissue aggregating to 2.0 x 0.2 x 0.1 cm. Totally submitted in cassette A2. Gross examination performed at [facility], [address] [place] [address], [place] [address] FFS 08/09/2021 8:35 PM Performed By: #### S #### [facility] CLIA [id number] [address] [place] [address] [id number] CNPNon 06-14-2021 CNPN Telephone (GENSWS) ----- PRANAV ALICEA ([id number]) 1955 M Date Time Provider Department 06/14/21 ES YIP During your visit today, we recorded the following information about you: Bernadine Chin 06/14/2021 8:22 AM Signed 08-23-2021 COLON ALANIZ Ever Kilpatrick 07/24/2021 4:28 PM Signed 08-09-2021 Contacted by [facility] asking if we could move case , moved to August 09 Allergies As of Date: 06/14/2021 Noted Allergy Reaction KATY INHIBITORS 10/18/2008 3 - Cough IODINE 10/18/2008 4 - Hives Date Reviewed: 06/13/2021 Reviewed by: Es Yip PA-C - Fully Assessed Reason for Visit: 05-12-2021 Colon Alaniz [Other] Primary Visit Diagnosis:History of colon polyps [Z86.010] Order(s):COLONOSCOPY SCREENING [GI51] Order #: [id number] FUTURE Prescriptions as of 09/13/2021 - ciprofloxacin HCl (CIPRO) 500 mg tablet Take 500 mg by mouth twice daily. - atorvastatin (LIPITOR) 40 mg tablet Take 40 mg by mouth once daily. - losartan (COZAAR) 50 mg tablet TAKE 1 TABLET ONCE DAILY - metFORMIN (GLUCOPHAGE) 500 mg tablet TAKE 2 TABLETS TWICE A DAY WITH MEALS - atorvastatin (LIPITOR) 40 mg tablet Take 40 mg by mouth once daily. - RABEprazole (ACIPHEX) 20 mg tablet TAKE 1 TABLET ONCE DAILY - blood sugar diagnostic (BLOOD GLUCOSE TEST) test strip Test blood sugar(s) 2 times daily. Dx: 250.02. Insulin: No - Lancets lancets Test blood sugar(s) 2 times daily. Dx: 250.02. Insulin: No - ASPIRIN 81 MG TAB, DELAYED RELEASE Take one(1) tablet daily. Meds Comments as of 12/11/2011: Problem List As Of Date 06/14/2021 Noted Resolved Hyperlipidemia [E78.5] Diabetes mellitus (HCC) [E11.9] BENIGN HYPERTENSION [I10] ESOPHAGEAL REFLUX [K21.9] SUSIE on CPAP [G47.33, Z99.89] Adenomatous colon polyp [D12.6] 12/11/2011 Open wound(s) (multiple) of unspecified site(s)*11/02/2013 12/27/2014 Coronary artery disease involving [place] hardy*10/09/2016 Encounter Status:Closed by BERNADINE OSUNA on 09/13/21 [facility] CNOVon 06-13-2021 CNOV Office Visit (GENSWS ) ----- PRANAV ALICEA ([id number]) 1955 M Date Time Provider Department 06/13/21 4:20 PM ES YIP GENSWS During your visit today, we recorded the following information about you: Temperature Pulse Blood pressure Weight 98 degrees 89/minute 161/83 116.1 kg Height 1.829 m Samantha Ortizz 06/13/2021 4:17 PM Signed REVIEW OF SYSTEMS: [...] Mammogram screening? N/A Last Colonoscopy: 2011 Samantha Yip PA-C 06/19/2021 12:39 PM Signed HISTORY AND PHYSICAL Pranav Alicea 1955 REFERRING [...] barium enema. Past medical history significant for SD and stent placement, type II diabetes, sleep [...] MEALS - RABEprazole (ACIPHEX) 20 mg tablet (more content not included)... Normal [facility] No Panel Informationon 05-18 Prostate Specific Antigen Screen 9.57 ng/mL 0.00-4.00 [facility] Work Phone: Comment on above: This test was perfor med using the TPSA assay method for [employer] chemistry system. Values obtained with differentassay methods cannot be used interchangably.When changing PSA assays in the course of monitoring apatient, additional sequential testing should be carriedout to confirm baseline values. Prostate Specific Antigen Total 9.57 ng/mL 0.0-4.0 [facility] Work Phone: Comment on above: This test was perfor med using the TPSA assay method for [employer] chemistry system. Values obtained with differentassay methods cannot be used interchangably.When changing PSA assays in the course of monitoring apatient, additional sequential testing should be carriedout to confirm baseline values. Thyroid Stimulating Hormone (TSH) 1.60 uIU/mL 0.358-3.74 [facility] Work Phone: Whole blood hemoglobin A1c/t otal hemoglobin ratio (mass fraction)on 05-18-2021 HbA1c (Bld) [Mass fraction] 6.4 % 3.8-5.6 [facility] Work Phone: Comment on above: Normal < 5.7 % Predi abetic 5.7 - 6.4 % Diabetic >or= 6.5 % Please note range changes. Chiquis 05-30-2020 EMILY Telephone (SPPRAD) ----- PRANAV ALICEA ( ) 1955 M Date Time Provider Department 05/30/20 AUDRA DAVILA (SHERRY)SPPRAD During your visit today, we recorded the following information about you: Audra Chapman APRN.SHERRY 05/30/2020 1:06 PM Signed 2nd call for recall colonoscopy. Left message to call [phone] to schedule colonoscopy and speak to Ever Kilpatrick or call office At [phone] for questions. Letter sent out as well. Allergies As of Date: 05/30/2020 Noted Allergy Reaction KATY INHIBITORS 10/18/2008 3 - Cough IODINE 10/18/2008 4 - Hives Date Reviewed: 11/12/2016 Reviewed by: Thea Bal Ma - Fully Assessed Reason for Visit: Other [1320] Cmt: recall colonoscopy Prescriptions as of 05/30/2020 Sig: LOSARTAN 50 MG TABLET TAKE 1 TABLET ONCE DAILY METFORMIN 500 MG TABLET TAKE 2 TABLETS TWICE A DAY WI* ATORVASTATIN 40 MG TABLET Take 40 mg by mouth once jeimy* TICAGRELOR 90 MG TABLET Take 90 mg by mouth twice jackeline* RABEPRAZOLE 20 MG TABLET,GIN* TAKE 1 TABLET ONCE DAILY BLOOD SUGAR DIAGNOSTIC STRIPS Test blood sugar(s) 2 times d* LANCETS Test blood sugar(s) 2 times d* ASPIRIN 81 MG TABLET,DELAYED * Take one(1) tablet daily. Problem List As Of Date 05/30/2020 Noted Resolved Hyperlipidemia [E78.5] Diabetes mellitus (HCC) [E11.9] BENIGN HYPERTENSION [I10] ESOPHAGEAL REFLUX [K21.9] SUSIE on CPAP [G47.33, Z99.89] Adenomatous colon polyp [D12.6] 12/11/2011 Open wound(s) (multiple) of unspecified site(s)*11/02/2013 12/27/2014 Coronary artery disease involving [place]*10/09/2016 Encounter Status:[facility] (SPPRAD) ----- PRANAV ALICEA ( ) 1955 M Date Time Provider Department 05/25/20 AUDRA DAVILA (UNION CONTRACT REPRESENTATIVE)SPPRAD During your visit today, we recorded the following information about you: Audra Chapman APRN.CNP 05/25/2020 1:14 PM Signed Recall colonoscopy. No answer. Left a message to call back [phone] Allergies As of Date: 05/25/2020 Noted Allergy Reaction KATY INHIBITORS 10/18/2008 3 - Cough IODINE 10/18/2008 4 - Hives Date Reviewed: 11/12/2016 Reviewed by: Thea Bal Ma - Fully Assessed Reason for Visit: Follow Up For [3040] Cmt: rpt colonoscopy Prescriptions as of 05/25/2020 Sig: LOSARTAN 50 MG TABLET TAKE 1 TABLET ONCE DAILY METFORMIN 500 MG TABLET TAKE 2 TABLETS TWICE A DAY WI* ATORVASTATIN 40 MG TABLET Take 40 mg by mouth once jeimy* TICAGRELOR 90 MG TABLET Take 90 mg by mouth twice jackeline* RABEPRAZOLE 20 MG TABLET,GIN* TAKE 1 TABLET ONCE DAILY BLOOD SUGAR DIAGNOSTIC STRIPS Test blood sugar(s) 2 times d* LANCETS Test blood sugar(s) 2 times d* ASPIRIN 81 MG TABLET,DELAYED * Take one(1) tablet daily. Problem List As Of Date 05/25/2020 Noted Resolved Hyperlipidemia [E78.5] Diabetes mellitus (HCC) [E11.9] BENIGN HYPERTENSION [I10] ESOPHAGEAL REFLUX [K21.9] SUSIE on CPAP [G47.33, Z99.89] Adenomatous colon polyp [D12.6] 12/11/2011 Open wound(s) (multiple) of unspecified site(s)*11/02/2013 12/27/2014 Coronary artery disease involving [place]*10/09/2016 More... Encounter Status:Closed by AUDRA DAVILA on 05/25/20 [facility] .Auto Diffon 10-17-2016 Basophils Auto #/vol (Bld) 0.00 10 3/mcL Normal 0.00-0.27 [facility] Comment on above: Performed By: #### C BC, ADIFF, ANEU, BMP, TROPI, GFR ####[place] [id number] [place] [address] Basophils/100 WBC Auto (Bld) 0.1 % Normal 0.0-2.5 [facility] Comment on above: Performed By: #### C BC, ADIFF, ANEU, BMP, TROPI, GFR ####[facility] [place] [address] Eosinophils 0.10 10 3/mcL Normal 0.00-0.65 [facility] Comment on above: Performed By: #### C BC, ADIFF, ANEU, BMP, TROPI, GFR ####[address] [address] Eosinophils/100 leukocytes 1.1 % Normal 0.0-6.0 [facility] Comment on above: Performed By: #### C BC, ADIFF, ANEU, BMP, TROPI, GFR ####[address] [address] Lymphocytes 2.00 10 3/mcL Normal 0.90-4.32 [facility] Comment on above: Performed By: #### C BC, ADIFF, ANEU, BMP, TROPI, GFR ####[address] [address] Lymphocytes/100 leukocytes 18.8 % Low 20.0-40.0 [facility] Comment on above: Performed By: #### C BC, ADIFF, ANEU, BMP, TROPI, GFR ####[address] [address] Monocytes 0.80 10 3/mcL Normal 0.09-1.40 [facility] Comment on above: Performed By: #### C BC, ADIFF, ANEU, BMP, TROPI, GFR ####[address] [address] Monocytes/100 leukocytes 7.4 % Normal 2.0-13.0 [facility] Comment on above: Performed By: #### C BC, ADIFF, ANEU, BMP, TROPI, GFR ####[address] [address] Neutrophils/100 WBC Auto (Bld) 72.6 % Normal 50.0-75.0 [facility] Comment on above: Performed By: #### C BC, ADIFF, ANEU, BMP, TROPI, GFR ####[address] [address] .NEUABSon 10-17-2016 Neutrophils 7.90 10 3/mcL Normal 2.25-8.10 [facility] Comment on above: Performed By: #### C BC, ADIFF, ANEU, BMP, TROPI, GFR ####[place] [id number] BMPon 10-17-2016 BUN/Creatinine Ratio 18.8 ratio Normal 10.0-22.0 [facility] ([place] Comment on above: Performed By: #### C BC, ADIFF, ANEU, BMP, GFR, LIPID ####[place] [address] Creatinine 0.64 mg/dL Normal 0.60-1.40 [facility] Comment on above: Performed By: #### C BC, ADIFF, ANEU, BMP, GFR, LIPID ####[place] [address] Calcium 8.7 mg/dL Normal 8.4-10.1 [facility] Comment on above: Performed By: #### C BC, ADIFF, ANEU, BMP, GFR, LIPID ####[place] [address] Chloride 108 mmol/L Normal 98-110 [facility] Comment on above: Performed By: #### C BC, ADIFF, ANEU, BMP, GFR, LIPID ####[place] [address] CO2 29 mmol/L Normal 22-32 [facility] Comment on above: Performed By: #### C BC, ADIFF, ANEU, BMP, GFR, LIPID ####[place] [address] Electrolyte Balance 6.0 mEq/L Normal 4.0-15.0 [facility] ([place]) Comment on above: Performed By: #### C BC, ADIFF, ANEU, BMP, GFR, LIPID ####[place] [address] Glucose mass conc 112 mg/dL Normal 82-115 [facility] Comment on above: Performed By: #### C BC, ADIFF, ANEU, BMP, GFR, LIPID ####[place] [address] Potassium molar conc 3.6 mmol/L Normal 3.5-5.0 [facility] [place] Comment on above: Performed By: #### C BC, ADIFF, ANEU, BMP, GFR, LIPID ####[place] [address] Sodium 143 mmol/L Normal 136-145 [facility] Comment on above: Performed By: #### C BC, ADIFF, ANEU, BMP, GFR, LIPID ####[place] [address] Urea nitrogen 12.0 mg/dL Normal 8.0-22.0 [facility] Comment on above: Performed By: #### C BC, ADIFF, ANEU, BMP, GFR, LIPID ####[place] [address] CBCon 10-17-2016 Erythrocyte distribution width Auto Ratio (RBC) 13.3 % Normal 11.5-15.5 [facility] [place] Comment on above: Performed By: #### C BC, ADIFF, ANEU, BMP, TROPI, GFR ####[place] [address] Erythrocytes (RBC) 4.81 10 6/mcL Normal 4.50-6.00 [facility] ([place]) Comment on above: Performed By: #### C BC, ADIFF, ANEU, BMP, TROPI, GFR ####[place] [address] Hematocrit (HCT) 41.8 % Normal 40.0-52.0 [facility] Comment on above: Performed By: #### C BC, ADIFF, ANEU, BMP, TROPI, GFR ####[place] [address] Hemoglobin mass conc (Bld) 14.8 G/dL Normal 13.0-17.5 [facility] Comment on above: Performed By: #### C BC, ADIFF, ANEU, BMP, TROPI, GFR ####[place] [address] MCH 30.7 pg Normal 27.0-33.0 [facility] Comment on above: Performed By: #### C BC, ADIFF, ANEU, BMP, TROPI, GFR ####[place] [address] MCHC mass conc (RBC) 35.4 G/dL Normal 32.0-36.0 [facility] ([place] Comment on above: Performed By: #### C BC, ADIFF, ANEU, BMP, TROPI, GFR ####[place] [address] MCV 86.9 fL Normal 81.0-100.0 [facility] Comment on above: Performed By: #### C BC, ADIFF, ANEU, BMP, TROPI, GFR ####[place] [address] Platelet mean volume (PMV) 7.8 fL Normal 6.4-10.5 [facility] Comment on above: Performed By: #### C BC, ADIFF, ANEU, BMP, TROPI, GFR ####[place] [address] Platelets 244 10 3/mcL Normal 150-450 [facility] Comment on above: Performed By: #### C BC, ADIFF, ANEU, BMP, TROPI, GFR ####[place] [address] WBC (Leukocytes) 10.90 10 3/mcL High 4.50-10.80 [facility] ([place] Comment on above: Performed By: #### C BC, ADIFF, ANEU, BMP, TROPI, GFR ####[place] [address] Director Of Early Childhood Progress Noteon 10-17-2016 Director Of Early Childhood Progress Note Normal [facility] Depart Summaryon 10-17-2016 Depart Summary Normal [facility] [facility] [place] Discharge Summaryon 10-18-19 17 Discharge Summary Normal [facility]) GFRon 10-17-2016 eGFR (non-black) mL/min/{1.73_m2} Normal [facility] ([place]) Comment on above: Result Comment: GFR Population mean for , Non- Americans Ages 20-29 = 116 mL/min/1.73 sq.m. Ages 30-39 = 107 mL/min/1.73 sq.m. Ages 40-49 = 99 mL/min/1.73 sq.m. Ages 50-59 = 93 mL/min/1.73 sq.m. Ages 60-69 = 85 mL/min/1.73 sq.m. Ages 70+ = 75 mL/min/1.73 sq.m.Chronic Kidney Disease: Less than 60 mL/min/1.73 square metersEnd Stage Renal Disease: Less than 15 mL/min/1.73 square meters Performed By: #### C BC, ADIFF, ANEU, BMP, GFR, LIPID ####[place] [address] [place] [address] Inpatient Patient Summaryon 10-17-2016 Inpatient Patient Summary [facility] ([place]) LIPIDon 10-17-2016 Cholesterol 115 mg/dL Normal 50-199 [facility] ([place]) Comment on above: Result Comment: Chol esterol Reference Interval:Less than 200 [id number] Borderline high [id number] and above High risk Performed By: #### C BC, ADIFF, ANEU, BMP, GFR, LIPID ####[place] [address] [place] [address]259 HDL Cholesterol 43 mg/dL Normal 40-59 [facility] ([place]) Comment on above: Result Comment: HDL Reference Interval:Less than 40 Low - high risk60 or above Optimal/lowers risk Performed By: #### C BC, ADIFF, ANEU, BMP, GFR, LIPID ####[place] [address] [place] [address] LDL Cholesterol 49 mg/dL Normal 0-129 [facility] ([place]) Comment on above: Result Comment: LDL is a calculated result and requires a 12- hr fast.LDL Reference Interval:Less than 100 [id number] Near or above [id number] Borderline high [id number] High wgum703 and above Very high risk Performed By: #### C BC, ADIFF, ANEU, BMP, GFR, LIPID ####[facility] [place] [address] Triglyceride 115 mg/dL Normal 3-149 [facility] ([place]) Comment on above: Result Comment: Trig lyceride Reference Interval:Less than 150 [id number] Borderline high [id number] High [id number] or higher Very high risk Performed By: #### C BC, ADIFF, ANEU, BMP, GFR, LIPID ####[address] [address] .Auto Diffon 10-16-2016 Basophils Auto #/vol (Bld) 0.00 10 3/mcL Normal 0.00-0.27 [facility] ([place]) Comment on above: Performed By: #### C BC, ADIFF, ANEU, BMP, TROPI, GFR ####[address] [address] Basophils/100 WBC Auto (Bld) 0.1 % Normal 0.0-2.5 [facility] ([place]) Comment on above: Performed By: #### C BC, ADIFF, ANEU, BMP, TROPI, GFR ####[address] [address] Eosinophils 0.00 10 3/mcL Normal 0.00-0.65 [facility] ([place]) Comment on above: Performed By: #### C BC, ADIFF, ANEU, BMP, TROPI, GFR ####[address] [address] Eosinophils/100 leukocytes 0.1 % Normal 0.0-6.0 [facility] ([place]) Comment on above: Performed By: #### C BC, ADIFF, ANEU, BMP, TROPI, GFR ####[address] [address] Lymphocytes 0.70 10 3/mcL Low 0.90-4.32 [facility] ([place]) Comment on above: Performed By: #### C BC, ADIFF, ANEU, BMP, TROPI, GFR ####[address] [address] Lymphocytes/100 leukocytes 7.4 % Low 20.0-40.0 [facility] ([place]) Comment on above: Performed By: #### C BC, ADIFF, ANEU, BMP, TROPI, GFR ####[address] [address] Monocytes 0.30 10 3/mcL Normal 0.09-1.40 [facility] ([place]) Comment on above: Performed By: #### C BC, ADIFF, ANEU, BMP, TROPI, GFR ####[address] [address] Monocytes/100 leukocytes 2.7 % Normal 2.0-13.0 [facility] ([place]) Comment on above: Performed By: #### C BC, ADIFF, ANEU, BMP, TROPI, GFR ####[address] [address] Neutrophils/100 WBC Auto (Bld) 89.7 % High 50.0-75.0 [facility] ([place]) Comment on above: Performed By: #### C BC, ADIFF, ANEU, BMP, TROPI, GFR ####[address] [address] .NEUABSon 10-16-2016 Neutrophils 9.10 10 3/mcL High 2.25-8.10 [facility] ([place]) Comment on above: Performed By: #### C BC, ADIFF, ANEU, BMP, TROPI, GFR ####[place] [address] BMPon 10-16-2016 BUN/Creatinine Ratio 24.2 ratio High 10.0-22.0 [facility] ([place]) Comment on above: Performed By: #### C BC, ADIFF, ANEU, BMP, TROPI, GFR ####[place] [address] Calcium 9.6 mg/dL Normal 8.4-10.1 [facility] ([place]) Comment on above: Performed By: #### C BC, ADIFF, ANEU, BMP, TROPI, GFR ####[place] [address] Chloride 102 mmol/L Normal 98-110 [facility] ([place] Comment on above: Performed By: #### C BC, ADIFF, ANEU, BMP, TROPI, GFR ####[place] [address] CO2 25 mmol/L Normal 22-32 [facility] ([place]) Comment on above: Performed By: #### C BC, ADIFF, ANEU, BMP, TROPI, GFR ####[place] [address] Creatinine 0.66 mg/dL Normal 0.60-1.40 [facility] ([place]) Comment on above: Performed By: #### C BC, ADIFF, ANEU, BMP, TROPI, GFR ####[place] [address] Electrolyte Balance 11.0 mEq/L Normal 4.0-15.0 [facility] ([place]) Comment on above: Performed By: #### C BC, ADIFF, ANEU, BMP, TROPI, GFR ####[place] [address] Glucose mass conc 171 mg/dL High 82-115 [facility] ([place]) Comment on above: Performed By: #### C BC, ADIFF, ANEU, BMP, TROPI, GFR ####[place] [address] Potassium molar conc 4.4 mmol/L Normal 3.5-5.0 [facility] ([place]) Comment on above: Performed By: #### C BC, ADIFF, ANEU, BMP, TROPI, GFR ####[place] [address] Sodium 138 mmol/L Normal 136-145 [facility] ([place] Comment on above: Performed By: #### C BC, ADIFF, ANEU, BMP, TROPI, GFR ####[place] [address] Urea nitrogen 16.0 mg/dL Normal 8.0-22.0 [facility] ([place]) Comment on above: Performed By: #### C BC, ADIFF, ANEU, BMP, TROPI, GFR ####[place] [address] CBCon 10-16-2016 Erythrocyte distribution width Auto Ratio (RBC) 13.3 % Normal 11.5-15.5 [facility] ([place]) Comment on above: Performed By: #### C BC, ADIFF, ANEU, BMP, TROPI, GFR ####[place] [address] Erythrocytes (RBC) 5.15 10 6/mcL Normal 4.50-6.00 [facility] ([place]) Comment on above: Performed By: #### C BC, ADIFF, ANEU, BMP, TROPI, GFR ####[place] [address] Hematocrit (HCT) 44.0 % Normal 40.0-52.0 [facility] ([place]) Comment on above: Performed By: #### C BC, ADIFF, ANEU, BMP, TROPI, GFR ####[place] [address] Hemoglobin mass conc (Bld) 15.9 G/dL Normal 13.0-17.5 [facility] ([place]) Comment on above: Performed By: #### C BC, ADIFF, ANEU, BMP, TROPI, GFR ####[place] [address] MCH 30.8 pg Normal 27.0-33.0 [facility] ([place]) Comment on above: Performed By: #### C BC, ADIFF, ANEU, BMP, TROPI, GFR ####[place] [address] MCHC mass conc (RBC) 36.1 G/dL High 32.0-36.0 [facility] ([place]) Comment on above: Performed By: #### C BC, ADIFF, ANEU, BMP, TROPI, GFR ####[place] [address] MCV 85.4 fL Normal 81.0-100.0 [facility] ([place]) Comment on above: Performed By: #### C BC, ADIFF, ANEU, BMP, TROPI, GFR ####[place] [address] Platelet mean volume (PMV) 7.7 fL Normal 6.4-10.5 [facility] ([place]) Comment on above: Performed By: #### C BC, ADIFF, ANEU, BMP, TROPI, GFR ####[place] [address] Platelets 298 10 3/mcL Normal 150-450 [facility] ([place]) Comment on above: Performed By: #### C BC, ADIFF, ANEU, BMP, TROPI, GFR ####[place] [address] [place] [address] WBC (Leukocytes) 10.10 10 3/mcL Normal 4.50-10.80 [facility] ([place]) Comment on above: Performed By: #### C BC, ADIFF, ANEU, BMP, TROPI, GFR ####[address] [address] GFRon 10-16-2016 eGFR (non-black) mL/min/{1.73_m2} Normal [facility] ([place]) Comment on above: Result Comment: GFR Population mean for , Non- Americans Ages 20-29 = 116 mL/min/1.73 sq.m. Ages 30-39 = 107 mL/min/1.73 sq.m. Ages 40-49 = 99 mL/min/1.73 sq.m. Ages 50-59 = 93 mL/min/1.73 sq.m. Ages 60-69 = 85 mL/min/1.73 sq.m. Ages 70+ = 75 mL/min/1.73 sq.m.Chronic Kidney Disease: Less than 60 mL/min/1.73 square metersEnd Stage Renal Disease: Less than 15 mL/min/1.73 square meters Performed By: #### C BC, ADIFF, ANEU, BMP, TROPI, GFR ####[address] [address] PROon 10-16-2016 INR Coag RelTime (PPP) 1.0 {INR} Normal [facility] ([place]) Comment on above: Result Comment: [employer] [place] [employer] (CHEST, 1992, 102:[id number])recommended therapeutic range for oral anticoagulant therapy is:LOW RISK: Prophylaxis of venous thrombosis INR: 2.0-3.0 Treatment of pulmonary embolism 2.0-3.0 Prevention of systemic embolism 2.0-3.0HIGH RISK: Mechanical prosthetic valves 2.5-3.5 Performed By: #### C BC, ADIFF, ANEU, BMP, TROPI, GFR ####[place] [address] Prothrombin time (PT) Coag time (PPP) 11.7 s Normal 9.0-14.4 [facility] ([place]) Comment on above: Result Comment: Effe ctive 09/30/07, Protime results may be affected by some antibiotics (i.e. Ciprofloxacin, Azithromycin, Bactrim) which may potentiate the action of oral anticoagulants, with further increases in Protime/INR. Performed By: #### C BC, ADIFF, ANEU, BMP, TROPI, GFR ####[place] [address] .Auto Diffon 10-09-2016 Basophils Auto #/vol (Bld) 0.00 10 3/mcL Normal 0.00-0.27 [facility] ([place]) Comment on above: Performed By: #### C BC, ADIFF, ANEU, BMP, TROPI, GFR ####[place] [address] Basophils/100 WBC Auto (Bld) 0.1 % Normal 0.0-2.5 [facility] ([place] Comment on above: Performed By: #### C BC, ADIFF, ANEU, BMP, TROPI, GFR ####[place] [address] Eosinophils 0.10 10 3/mcL Normal 0.00-0.65 [facility] [place] Comment on above: Performed By: #### C BC, ADIFF, ANEU, BMP, TROPI, GFR ####[place] [address] Eosinophils/100 leukocytes 1.1 % Normal 0.0-6.0 [facility] [place] Comment on above: Performed By: #### C BC, ADIFF, ANEU, BMP, TROPI, GFR ####[place] [address] Lymphocytes 1.60 10 3/mcL Normal 0.90-4.32 [facility] [place] Comment on above: Performed By: #### C BC, ADIFF, ANEU, BMP, TROPI, GFR ####[place] [id number] Lymphocytes/100 leukocytes 14.5 % Low 20.0-40.0 [facility] ([place]) Comment on above: Performed By: #### C BC, ADIFF, ANEU, BMP, TROPI, GFR ####[place] [address] Monocytes 0.80 10 3/mcL Normal 0.09-1.40 [facility] ([place] Comment on above: Performed By: #### C BC, ADIFF, ANEU, BMP, TROPI, GFR ####[place] [address] Monocytes/100 leukocytes 7.1 % Normal 2.0-13.0 [facility] ([place]) Comment on above: Performed By: #### C BC, ADIFF, ANEU, BMP, TROPI, GFR ####[place] [address] Neutrophils/100 WBC Auto (Bld) 77.2 % High 50.0-75.0 [facility] ([place]) Comment on above: Performed By: #### C BC, ADIFF, ANEU, BMP, TROPI, GFR ####[place] [address] .NEUABSon 10-09-2016 Neutrophils 8.70 10 3/mcL High 2.25-8.10 [facility] ([place]) Comment on above: Performed By: #### C BC, ADIFF, ANEU, BMP, TROPI, GFR ####[place] [address] BMPon 10-09-2016 BUN/Creatinine Ratio 19.5 ratio Normal 10.0-22.0 [facility] ([place]) Comment on above: Performed By: #### C BC, ADIFF, ANEU, BMP, TROPI, GFR ####[place] [address] Calcium 9.6 mg/dL Normal 8.4-10.1 [facility] ([place] Comment on above: Performed By: #### C BC, ADIFF, ANEU, BMP, TROPI, GFR ####[place] [address] Chloride 105 mmol/L Normal 98-110 [facility] ([place] Comment on above: Performed By: #### C BC, ADIFF, ANEU, BMP, TROPI, GFR ####[place] [address] CO2 26 mmol/L Normal 22-32 [facility] ([place] Comment on above: Performed By: #### C BC, ADIFF, ANEU, BMP, TROPI, GFR ####[place] [address] Creatinine 0.77 mg/dL Normal 0.60-1.40 [facility] ([place]) Comment on above: Performed By: #### C BC, ADIFF, ANEU, BMP, TROPI, GFR ####[place] [address] Electrolyte Balance 11.0 mEq/L Normal 4.0-15.0 [facility] ([place]) Comment on above: Performed By: #### C BC, ADIFF, ANEU, BMP, TROPI, GFR ####[place] [address] Glucose mass conc 100 mg/dL Normal 82-115 [facility] ([place] Comment on above: Performed By: #### C BC, ADIFF, ANEU, BMP, TROPI, GFR ####[place] [address] Potassium molar conc 3.6 mmol/L Normal 3.5-5.0 [facility] ([place]) Comment on above: Performed By: #### C BC, ADIFF, ANEU, BMP, TROPI, GFR ####[place] [address] Sodium 142 mmol/L Normal 136-145 [facility] ([place] Comment on above: Performed By: #### C BC, ADIFF, ANEU, BMP, TROPI, GFR ####[place] [address] Urea nitrogen 15.0 mg/dL Normal 8.0-22.0 [facility] ([place]) Comment on above: Performed By: #### C BC, ADIFF, ANEU, BMP, TROPI, GFR ####[place] [address] CBCon 10-09-2016 Erythrocyte distribution width Auto Ratio (RBC) 13.2 % Normal 11.5-15.5 [facility] ([place]) Comment on above: Performed By: #### C BC, ADIFF, ANEU, BMP, TROPI, GFR ####[place] [address] Erythrocytes (RBC) 5.24 10 6/mcL Normal 4.50-6.00 [facility] ([place]) Comment on above: Performed By: #### C BC, ADIFF, ANEU, BMP, TROPI, GFR ####[place] [address] Hematocrit (HCT) 45.7 % Normal 40.0-52.0 [facility] [place] Comment on above: Performed By: #### C BC, ADIFF, ANEU, BMP, TROPI, GFR ####[place] [address] Hemoglobin mass conc (Bld) 16.0 G/dL Normal 13.0-17.5 [facility] ([place]) Comment on above: Performed By: #### C BC, ADIFF, ANEU, BMP, TROPI, GFR ####[place] [address] MCH 30.5 pg Normal 27.0-33.0 [facility] ([place] Comment on above: Performed By: #### C BC, ADIFF, ANEU, BMP, TROPI, GFR ####[place] [address] MCHC mass conc (RBC) 34.9 G/dL Normal 32.0-36.0 [facility] ([place] Comment on above: Performed By: #### C BC, ADIFF, ANEU, BMP, TROPI, GFR ####[place] [address] MCV 87.2 fL Normal 81.0-100.0 [facility] [place] Comment on above: Performed By: #### C BC, ADIFF, ANEU, BMP, TROPI, GFR ####[facility] [place] [address] Platelet mean volume (PMV) 7.6 fL Normal 6.4-10.5 [facility] [place] Comment on above: Performed By: #### C BC, ADIFF, ANEU, BMP, TROPI, GFR ####[place] [address] [place] [address] Platelets 270 10 3/mcL Normal 150-450 [facility] ([place] Comment on above: Performed By: #### C BC, ADIFF, ANEU, BMP, TROPI, GFR ####[place] [address] [place] [address] WBC (Leukocytes) 11.30 10 3/mcL High 4.50-10.80 [facility]) Comment on above: Performed By: #### C BC, ADIFF, ANEU, BMP, TROPI, GFR ####[address] [address] Director Of Early Childhood Progress Noteon 10-09-2016 Director Of Early Childhood Progress Note Normal [facility] ([place]) Depart Summaryon 10-09-2016 Depart Summary Normal [facility]) Discharge Summaryon 10-10-19 17 Discharge Summary Normal [facility]) Discharge Summary Normal [facility]) GFRon 10-09-2016 eGFR (non-black) mL/min/{1.73_m2} Normal [facility]) Comment on above: Result Comment: GFR Population mean for , Non- Americans Ages 20-29 = 116 mL/min/1.73 sq.m. Ages 30-39 = 107 mL/min/1.73 sq.m. Ages 40-49 = 99 mL/min/1.73 sq.m. Ages 50-59 = 93 mL/min/1.73 sq.m. Ages 60-69 = 85 mL/min/1.73 sq.m. Ages 70+ = 75 mL/min/1.73 sq.m.Chronic Kidney Disease: Less than 60 mL/min/1.73 square metersEnd Stage Renal Disease: Less than 15 mL/min/1.73 square meters Performed By: #### C BC, ADIFF, ANEU, BMP, TROPI, GFR ####[address] [address] Inpatient Patient Summaryon 10-09-2016 Inpatient Patient Summary Normal [facility] ([place]) .Auto Diffon 10-08-2016 Basophils Auto #/vol (Bld) 0.00 10 3/mcL Normal 0.00-0.27 [facility] ([place]) Comment on above: Performed By: #### C BC, ADIFF, ANEU, BMP, TROPI, GFR ####[address] [address] Basophils/100 WBC Auto (Bld) 0.2 % Normal 0.0-2.5 [facility] ([place]) Comment on above: Performed By: #### C BC, ADIFF, ANEU, BMP, TROPI, GFR ####[place] [address] Eosinophils 0.20 10 3/mcL Normal 0.00-0.65 [facility] [place] Comment on above: Performed By: #### C BC, ADIFF, ANEU, BMP, TROPI, GFR ####[place] [address] Eosinophils/100 leukocytes 4.0 % Normal 0.0-6.0 [facility] [place] Comment on above: Performed By: #### C BC, ADIFF, ANEU, BMP, TROPI, GFR ####[address] [address] Lymphocytes 1.40 10 3/mcL Normal 0.90-4.32 [facility] ([place] Comment on above: Performed By: #### C BC, ADIFF, ANEU, BMP, TROPI, GFR ####[address] [address] Lymphocytes/100 leukocytes 22.6 % Normal 20.0-40.0 [facility] ([place]) Comment on above: Performed By: #### C BC, ADIFF, ANEU, BMP, TROPI, GFR ####[address] [address] Monocytes 0.40 10 3/mcL Normal 0.09-1.40 [facility] ([place] Comment on above: Performed By: #### C BC, ADIFF, ANEU, BMP, TROPI, GFR ####[address] [address] Monocytes/100 leukocytes 7.3 % Normal 2.0-13.0 [facility] ([place] Comment on above: Performed By: #### C BC, ADIFF, ANEU, BMP, TROPI, GFR ####[address] [address] Neutrophils/100 WBC Auto (Bld) 65.9 % Normal 50.0-75.0 [facility] [place] Comment on above: Performed By: #### C BC, ADIFF, ANEU, BMP, TROPI, GFR ####[address] [address] .NEUABSon 10-08-2016 Neutrophils 4.00 10 3/mcL Normal 2.25-8.10 [facility] ([place]) Comment on above: Performed By: #### C BC, ADIFF, ANEU, BMP, TROPI, GFR ####[place] [address] APTTon 10-08-2016 aPTT Heparin IV Normal [facility] ([place] Comment on above: Performed By: #### C BC, ADIFF, ANEU, BMP, TROPI, GFR ####[address] [address] aPTT 64.6 s High 25.0-35.0 [facility] ([place]) Comment on above: Result Comment: For Heparin anticoagulation therapy, the recommendedtherapeutic range is: 54-77 seconds (APTT Correlationwith Anti-Xa therapeutic range of 0.3-0.7 units/ml).PLEASE REFERENCE THE PHARMACY PROTOCOL FOR DOSING. Performed By: #### C BC, ADIFF, ANEU, BMP, TROPI, GFR ####[place] [address] aPTT 63.8 s High 25.0-35.0 [facility] ([place]) Comment on above: Result Comment: For Heparin anticoagulation therapy, the recommendedtherapeutic range is: 54-77 seconds (APTT Correlationwith Anti-Xa therapeutic range of 0.3-0.7 units/ml).PLEASE REFERENCE THE PHARMACY PROTOCOL FOR DOSING. Performed By: #### C BC, ADIFF, ANEU, BMP, TROPI, GFR ####[place] [address] aPTT Heparin IV Normal [facility] ([place]) Comment on above: Performed By: #### C BC, ADIFF, ANEU, BMP, TROPI, GFR ####[place] [address] BMPon 10-08-2016 BUN/Creatinine Ratio 14.5 ratio Normal 10.0-22.0 [facility] ([place] Comment on above: Performed By: #### C BC, ADIFF, ANEU, BMP, TROPI, GFR ####[place] [address] Calcium 9.1 mg/dL Normal 8.4-10.1 [facility] [place] Comment on above: Performed By: #### C BC, ADIFF, ANEU, BMP, TROPI, GFR ####[place] [address] Chloride 105 mmol/L Normal 98-110 [facility] [place] Comment on above: Performed By: #### C BC, ADIFF, ANEU, BMP, TROPI, GFR ####[place] [address] CO2 28 mmol/L Normal 22-32 [facility] [place] Comment on above: Performed By: #### C BC, ADIFF, ANEU, BMP, TROPI, GFR ####[place] [address] Creatinine 0.76 mg/dL Normal 0.60-1.40 [facility] [place] Comment on above: Performed By: #### C BC, ADIFF, ANEU, BMP, TROPI, GFR ####[place] [address] Electrolyte Balance 7.0 mEq/L Normal 4.0-15.0 [facility] ([place]) Comment on above: Performed By: #### C BC, ADIFF, ANEU, BMP, TROPI, GFR ####[place] [address] Glucose mass conc 110 mg/dL Normal 82-115 [facility] [place] Comment on above: Performed By: #### C BC, ADIFF, ANEU, BMP, TROPI, GFR ####[place] [address] Potassium molar conc 4.1 mmol/L Normal 3.5-5.0 [facility] ([place] Comment on above: Performed By: #### C BC, ADIFF, ANEU, BMP, TROPI, GFR ####[place] [address] Sodium 140 mmol/L Normal 136-145 [facility] [place] Comment on above: Performed By: #### C BC, ADIFF, ANEU, BMP, TROPI, GFR ####[place] [address] Urea nitrogen 11.0 mg/dL Normal 8.0-22.0 [facility] [place] Comment on above: Performed By: #### C BC, ADIFF, ANEU, BMP, TROPI, GFR ####[place] [address] CBCon 10-08-2016 Erythrocyte distribution width Auto Ratio (RBC) 13.3 % Normal 11.5-15.5 [facility] [place] Comment on above: Performed By: #### C BC, ADIFF, ANEU, BMP, TROPI, GFR ####[place] [address] Erythrocytes (RBC) 5.00 10 6/mcL Normal 4.50-6.00 [facility] ([place]) Comment on above: Performed By: #### C BC, ADIFF, ANEU, BMP, TROPI, GFR ####[place] [address] Hematocrit (HCT) 43.2 % Normal 40.0-52.0 [facility] [place] Comment on above: Performed By: #### C BC, ADIFF, ANEU, BMP, TROPI, GFR ####[place] [address] Hemoglobin mass conc (Bld) 15.1 G/dL Normal 13.0-17.5 [facility] [place] Comment on above: Performed By: #### C BC, ADIFF, ANEU, BMP, TROPI, GFR ####[place] [address] MCH 30.3 pg Normal 27.0-33.0 [facility] [place] Comment on above: Performed By: #### C BC, ADIFF, ANEU, BMP, TROPI, GFR ####[place] [address] MCHC mass conc (RBC) 35.0 G/dL Normal 32.0-36.0 [facility] ([place] Comment on above: Performed By: #### C BC, ADIFF, ANEU, BMP, TROPI, GFR ####[place] [address] MCV 86.4 fL Normal 81.0-100.0 [facility] [place] Comment on above: Performed By: #### C BC, ADIFF, ANEU, BMP, TROPI, GFR ####[place] [address] Platelet mean volume (PMV) 7.6 fL Normal 6.4-10.5 [facility] [place] Comment on above: Performed By: #### C BC, ADIFF, ANEU, BMP, TROPI, GFR ####[place] [address] Platelets 217 10 3/mcL Normal 150-450 [facility] [place] Comment on above: Performed By: #### C BC, ADIFF, ANEU, BMP, TROPI, GFR ####[place] [address] WBC (Leukocytes) 6.10 10 3/mcL Normal 4.50-10.80 [facility] ([place]) Comment on above: Performed By: #### C BC, ADIFF, ANEU, BMP, TROPI, GFR ####[place] [address] Director Of Early Childhood Progress Noteon 10-08-2016 Director Of Early Childhood Progress Note Normal [facility] [place] GFRon 10-08-2016 eGFR (non-black) mL/min/{1.73_m2} Normal [facility] ([place]) Comment on above: Result Comment: GFR Population mean for , Non- Americans Ages 20-29 = 116 mL/min/1.73 sq.m. Ages 30-39 = 107 mL/min/1.73 sq.m. Ages 40-49 = 99 mL/min/1.73 sq.m. Ages 50-59 = 93 mL/min/1.73 sq.m. Ages 60-69 = 85 mL/min/1.73 sq.m. Ages 70+ = 75 mL/min/1.73 sq.m.Chronic Kidney Disease: Less than 60 mL/min/1.73 square metersEnd Stage Renal Disease: Less than 15 mL/min/1.73 square meters Performed By: #### C BC, ADIFF, ANEU, BMP, TROPI, GFR ####[address] [address] .Auto Diffon 10-07-2016 Basophils Auto #/vol (Bld) 0.00 10 3/mcL Normal 0.00-0.27 [facility] [place] Comment on above: Performed By: #### C BC, ADIFF, ANEU, BMP, TROPI, GFR ####[address] [address] Basophils/100 WBC Auto (Bld) 0.2 % Normal 0.0-2.5 [facility] [place] Comment on above: Performed By: #### C BC, ADIFF, ANEU, BMP, TROPI, GFR ####[address] [address] Eosinophils 0.30 10 3/mcL Normal 0.00-0.65 [facility] [place] Comment on above: Performed By: #### C BC, ADIFF, ANEU, BMP, TROPI, GFR ####[address] [address] Eosinophils/100 leukocytes 3.5 % Normal 0.0-6.0 [facility] [place] Comment on above: Performed By: #### C BC, ADIFF, ANEU, BMP, TROPI, GFR ####[place] [address] Lymphocytes 1.60 10 3/mcL Normal 0.90-4.32 [facility] [place] Comment on above: Performed By: #### C BC, ADIFF, ANEU, BMP, TROPI, GFR ####[address] [address] Lymphocytes/100 leukocytes 22.3 % Normal 20.0-40.0 [facility] [place] Comment on above: Performed By: #### C BC, ADIFF, ANEU, BMP, TROPI, GFR ####[place] [address] Monocytes 0.50 10 3/mcL Normal 0.09-1.40 [facility] [place] Comment on above: Performed By: #### C BC, ADIFF, ANEU, BMP, TROPI, GFR ####[place] [address] Monocytes/100 leukocytes 7.3 % Normal 2.0-13.0 [facility] ([place] Comment on above: Performed By: #### C BC, ADIFF, ANEU, BMP, TROPI, GFR ####[place] [address] Neutrophils/100 WBC Auto (Bld) 66.7 % Normal 50.0-75.0 [facility] ([place]) Comment on above: Performed By: #### C BC, ADIFF, ANEU, BMP, TROPI, GFR ####[place] [address] .NEUABSon 10-07-2016 Neutrophils 4.80 10 3/mcL Normal 2.25-8.10 [facility] ([place] Comment on above: Performed By: #### C BC, ADIFF, ANEU, BMP, TROPI, GFR ####[place] [address] APTTon 10-07-2016 aPTT Heparin IV Normal [facility] ([place] Comment on above: Performed By: #### C BC, ADIFF, ANEU, BMP, TROPI, GFR ####[place] [address] aPTT 56.0 s High 25.0-35.0 [facility] ([place] Comment on above: Result Comment: For Heparin anticoagulation therapy, the recommendedtherapeutic range is: 54-77 seconds (APTT Correlationwith Anti-Xa therapeutic range of 0.3-0.7 units/ml).PLEASE REFERENCE THE PHARMACY PROTOCOL FOR DOSING. Performed By: #### C BC, ADIFF, ANEU, BMP, TROPI, GFR ####[place] [address] aPTT 49.6 s High 25.0-35.0 [facility] ([place] Comment on above: Result Comment: For Heparin anticoagulation therapy, the recommendedtherapeutic range is: 54-77 seconds (APTT Correlationwith Anti-Xa therapeutic range of 0.3-0.7 units/ml).PLEASE REFERENCE THE PHARMACY PROTOCOL FOR DOSING. Performed By: #### C BC, ADIFF, ANEU, BMP, TROPI, GFR ####[place] [address] aPTT Heparin IV Normal [facility] ([place] Comment on above: Performed By: #### C BC, ADIFF, ANEU, BMP, TROPI, GFR ####[place] [address] aPTT Heparin IV Normal [facility] ([place] Comment on above: Performed By: #### C BC, ADIFF, ANEU, BMP, TROPI, GFR ####[place] [address] aPTT 72.1 s High 25.0-35.0 [facility] ([place] Comment on above: Result Comment: For Heparin anticoagulation therapy, the recommendedtherapeutic range is: 54-77 seconds (APTT Correlationwith Anti-Xa therapeutic range of 0.3-0.7 units/ml).PLEASE REFERENCE THE PHARMACY PROTOCOL FOR DOSING. Performed By: #### C BC, ADIFF, ANEU, BMP, TROPI, GFR ####[place] [address] aPTT 65.7 s High 25.0-35.0 [facility] ([place] Comment on above: Result Comment: For Heparin anticoagulation therapy, the recommendedtherapeutic range is: 54-77 seconds (APTT Correlationwith Anti-Xa therapeutic range of 0.3-0.7 units/ml).PLEASE REFERENCE THE PHARMACY PROTOCOL FOR DOSING. Performed By: #### C BC, ADIFF, ANEU, BMP, TROPI, GFR ####[place] [address] aPTT Heparin IV Normal [facility] ([place] Comment on above: Performed By: #### C BC, ADIFF, ANEU, BMP, TROPI, GFR ####[place] [address] CBCon 10-07-2016 Erythrocyte distribution width Auto Ratio (RBC) 13.3 % Normal 11.5-15.5 [facility] ([place] Comment on above: Performed By: #### C BC, ADIFF, ANEU, BMP, TROPI, GFR ####[place] [address] Erythrocytes (RBC) 4.88 10 6/mcL Normal 4.50-6.00 [facility] ([place]) Comment on above: Performed By: #### C BC, ADIFF, ANEU, BMP, TROPI, GFR ####[place] [address] Hematocrit (HCT) 42.6 % Normal 40.0-52.0 [facility] ([place] Comment on above: Performed By: #### C BC, ADIFF, ANEU, BMP, TROPI, GFR ####[place] [address] Hemoglobin mass conc (Bld) 14.9 G/dL Normal 13.0-17.5 [facility] ([place] Comment on above: Performed By: #### C BC, ADIFF, ANEU, BMP, TROPI, GFR ####[place] [address] MCH 30.5 pg Normal 27.0-33.0 [facility] ([place] Comment on above: Performed By: #### C BC, ADIFF, ANEU, BMP, TROPI, GFR ####[place] [address] MCHC mass conc (RBC) 35.0 G/dL Normal 32.0-36.0 [facility] ([place]) Comment on above: Performed By: #### C BC, ADIFF, ANEU, BMP, TROPI, GFR ####[place] [address] MCV 87.2 fL Normal 81.0-100.0 [facility] ([place] Comment on above: Performed By: #### C BC, ADIFF, ANEU, BMP, TROPI, GFR ####[place] [address] Platelet mean volume (PMV) 7.6 fL Normal 6.4-10.5 [facility] ([place] Comment on above: Performed By: #### C BC, ADIFF, ANEU, BMP, TROPI, GFR ####[place] [address] Platelets 244 10 3/mcL Normal 150-450 [facility] ([place] Comment on above: Performed By: #### C BC, ADIFF, ANEU, BMP, TROPI, GFR ####[place] [address] WBC (Leukocytes) 7.20 10 3/mcL Normal 4.50-10.80 [facility] ([place]) Comment on above: Performed By: #### C BC, ADIFF, ANEU, BMP, TROPI, GFR ####[place] [address] .Auto Diffon 10-06-2016 Basophils Auto #/vol (Bld) 0.00 10 3/mcL Normal 0.00-0.27 [facility] ([place] Comment on above: Performed By: #### C BC, ADIFF, ANEU, BMP, TROPI, GFR ####[place] [address] Basophils/100 WBC Auto (Bld) 0.2 % Normal 0.0-2.5 [facility] ([place] Comment on above: Performed By: #### C BC, ADIFF, ANEU, BMP, TROPI, GFR ####[place] [address] Eosinophils 0.20 10 3/mcL Normal 0.00-0.65 [facility] ([place] Comment on above: Performed By: #### C BC, ADIFF, ANEU, BMP, TROPI, GFR ####[address] [address] Eosinophils/100 leukocytes 4.2 % Normal 0.0-6.0 [facility] ([place] Comment on above: Performed By: #### C BC, ADIFF, ANEU, BMP, TROPI, GFR ####[address] [address] Lymphocytes 1.40 10 3/mcL Normal 0.90-4.32 [facility] ([place] Comment on above: Performed By: #### C BC, ADIFF, ANEU, BMP, TROPI, GFR ####[address] [address] Lymphocytes/100 leukocytes 23.1 % Normal 20.0-40.0 [facility] ([place] Comment on above: Performed By: #### C BC, ADIFF, ANEU, BMP, TROPI, GFR ####[address] [address] Monocytes 0.50 10 3/mcL Normal 0.09-1.40 [facility] ([place] Comment on above: Performed By: #### C BC, ADIFF, ANEU, BMP, TROPI, GFR ####[address] [address] Monocytes/100 leukocytes 8.2 % Normal 2.0-13.0 [facility] ([place] Comment on above: Performed By: #### C BC, ADIFF, ANEU, BMP, TROPI, GFR ####[address] [address] Neutrophils/100 WBC Auto (Bld) 64.3 % Normal 50.0-75.0 [facility] ([place] Comment on above: Performed By: #### C BC, ADIFF, ANEU, BMP, TROPI, GFR ####[address] [address] Basophils Auto #/vol (Bld) 0.00 10 3/mcL Normal 0.00-0.27 [facility] ([place] Comment on above: Performed By: #### C BC, ADIFF, ANEU, BMP, TROPI, GFR ####[address] [address] Basophils/100 WBC Auto (Bld) 0.1 % Normal 0.0-2.5 [facility] ([place] Comment on above: Performed By: #### C BC, ADIFF, ANEU, BMP, TROPI, GFR ####[address] [address] Eosinophils 0.30 10 3/mcL Normal 0.00-0.65 [facility] ([place] Comment on above: Performed By: #### C BC, ADIFF, ANEU, BMP, TROPI, GFR ####[address] [address] Eosinophils/100 leukocytes 4.2 % Normal 0.0-6.0 [facility] ([place] Comment on above: Performed By: #### C BC, ADIFF, ANEU, BMP, TROPI, GFR ####[address] [address] Lymphocytes 1.80 10 3/mcL Normal 0.90-4.32 [facility] ([place] Comment on above: Performed By: #### C BC, ADIFF, ANEU, BMP, TROPI, GFR ####[address] [address] Lymphocytes/100 leukocytes 26.6 % Normal 20.0-40.0 [facility] ([place] Comment on above: Performed By: #### C BC, ADIFF, ANEU, BMP, TROPI, GFR ####[address] [address] Monocytes 0.70 10 3/mcL Normal 0.09-1.40 [facility] ([place] Comment on above: Performed By: #### C BC, ADIFF, ANEU, BMP, TROPI, GFR ####[address] [address] Monocytes/100 leukocytes 10.7 % Normal 2.0-13.0 [facility] ([place] Comment on above: Performed By: #### C BC, ADIFF, ANEU, BMP, TROPI, GFR ####[place] [address] Neutrophils/100 WBC Auto (Bld) 58.4 % Normal 50.0-75.0 [facility] ([place] Comment on above: Performed By: #### C BC, ADIFF, ANEU, BMP, TROPI, GFR ####[place] [address] .NEUABSon 10-06-2016 Neutrophils 3.80 10 3/mcL Normal 2.25-8.10 [facility] ([place] Comment on above: Performed By: #### C BC, ADIFF, ANEU, BMP, TROPI, GFR ####[place] [address] Neutrophils 4.00 10 3/mcL Normal 2.25-8.10 [facility] [place] Comment on above: Performed By: #### C BC, ADIFF, ANEU, BMP, TROPI, GFR ####[place] [address] APTTon 10-06-2016 aPTT Heparin IV Normal [facility] ([place] Comment on above: Performed By: #### C BC, ADIFF, ANEU, BMP, TROPI, GFR ####[place] [address] aPTT 57.4 s High 25.0-35.0 [facility] ([place] Comment on above: Result Comment: For Heparin anticoagulation therapy, the recommendedtherapeutic range is: 54-77 seconds (APTT Correlationwith Anti-Xa therapeutic range of 0.3-0.7 units/ml).PLEASE REFERENCE THE PHARMACY PROTOCOL FOR DOSING. Performed By: #### C BC, ADIFF, ANEU, BMP, TROPI, GFR ####[place] [address] aPTT Heparin IV Normal [facility] ([place] Comment on above: Performed By: #### C BC, ADIFF, ANEU, BMP, TROPI, GFR ####[place] [address] aPTT 45.1 s High 25.0-35.0 [facility] ([place] Comment on above: Result Comment: For Heparin anticoagulation therapy, the recommendedtherapeutic range is: 54-77 seconds (APTT Correlationwith Anti-Xa therapeutic range of 0.3-0.7 units/ml).PLEASE REFERENCE THE PHARMACY PROTOCOL FOR DOSING. Performed By: #### C BC, ADIFF, ANEU, BMP, TROPI, GFR ####[place] [address] aPTT 48.7 s High 25.0-35.0 [facility] ([place] Comment on above: Result Comment: For Heparin anticoagulation therapy, the recommendedtherapeutic range is: 54-77 seconds (APTT Correlationwith Anti-Xa therapeutic range of 0.3-0.7 units/ml).PLEASE REFERENCE THE PHARMACY PROTOCOL FOR DOSING. Performed By: #### C BC, ADIFF, ANEU, BMP, TROPI, GFR ####[place] [address] aPTT Heparin IV Normal [facility] ([place] Comment on above: Performed By: #### C BC, ADIFF, ANEU, BMP, TROPI, GFR ####[place] [address] aPTT None Normal [facility] ([place] Comment on above: Performed By: #### C BC, ADIFF, ANEU, BMP, TROPI, GFR ####[place] [address] aPTT 27.9 s Normal 25.0-35.0 [facility] [place] Comment on above: Result Comment: For Heparin anticoagulation therapy, the recommendedtherapeutic range is: 54-77 seconds (APTT Correlationwith Anti-Xa therapeutic range of 0.3-0.7 units/ml).PLEASE REFERENCE THE PHARMACY PROTOCOL FOR DOSING. Performed By: #### C BC, ADIFF, ANEU, BMP, TROPI, GFR ####[address] [address] CBCon 10-06-2016 Erythrocyte distribution width Auto Ratio (RBC) 13.2 % Normal 11.5-15.5 [facility] [place] Comment on above: Performed By: #### C BC, ADIFF, ANEU, BMP, TROPI, GFR ####[place] [address] Erythrocytes (RBC) 4.72 10 6/mcL Normal 4.50-6.00 [facility] ([place]) Comment on above: Performed By: #### C BC, ADIFF, ANEU, BMP, TROPI, GFR ####[place] [address] Hematocrit (HCT) 41.2 % Normal 40.0-52.0 [facility] ([place] Comment on above: Performed By: #### C BC, ADIFF, ANEU, BMP, TROPI, GFR ####[place] [address] Hemoglobin mass conc (Bld) 14.3 G/dL Normal 13.0-17.5 [facility] ([place] Comment on above: Performed By: #### C BC, ADIFF, ANEU, BMP, TROPI, GFR ####[place] [address] MCH 30.4 pg Normal 27.0-33.0 [facility] ([place] Comment on above: Performed By: #### C BC, ADIFF, ANEU, BMP, TROPI, GFR ####[place] [address] MCHC mass conc (RBC) 34.7 G/dL Normal 32.0-36.0 [facility] ([place] Comment on above: Performed By: #### C BC, ADIFF, ANEU, BMP, TROPI, GFR ####[place] [address] MCV 87.4 fL Normal 81.0-100.0 [facility] [place] Comment on above: Performed By: #### C BC, ADIFF, ANEU, BMP, TROPI, GFR ####[place] [address] Platelet mean volume (PMV) 7.6 fL Normal 6.4-10.5 [facility] ([place] Comment on above: Performed By: #### C BC, ADIFF, ANEU, BMP, TROPI, GFR ####[place] [address] Platelets 221 10 3/mcL Normal 150-450 [facility] [place] Comment on above: Performed By: #### C BC, ADIFF, ANEU, BMP, TROPI, GFR ####[place] [address] WBC (Leukocytes) 5.90 10 3/mcL Normal 4.50-10.80 [facility] ([place]) Comment on above: Performed By: #### C BC, ADIFF, ANEU, BMP, TROPI, GFR ####[place] [address] Erythrocyte distribution width Auto Ratio (RBC) 13.4 % Normal 11.5-15.5 [facility] ([place] Comment on above: Performed By: #### C BC, ADIFF, ANEU, BMP, TROPI, GFR ####[place] [address] Erythrocytes (RBC) 4.64 10 6/mcL Normal 4.50-6.00 [facility] ([place]) Comment on above: Performed By: #### C BC, ADIFF, ANEU, BMP, TROPI, GFR ####[place] [address] Hematocrit (HCT) 40.4 % Normal 40.0-52.0 [facility] ([place] Comment on above: Performed By: #### C BC, ADIFF, ANEU, BMP, TROPI, GFR ####[place] [address] Hemoglobin mass conc (Bld) 14.0 G/dL Normal 13.0-17.5 [facility] ([place] Comment on above: Performed By: #### C BC, ADIFF, ANEU, BMP, TROPI, GFR ####[place] [address] MCH 30.2 pg Normal 27.0-33.0 [facility] ([place] Comment on above: Performed By: #### C BC, ADIFF, ANEU, BMP, TROPI, GFR ####[place] [address] MCHC mass conc (RBC) 34.7 G/dL Normal 32.0-36.0 [facility] ([place] Comment on above: Performed By: #### C BC, ADIFF, ANEU, BMP, TROPI, GFR ####[place] [address] MCV 87.0 fL Normal 81.0-100.0 [facility] ([place] Comment on above: Performed By: #### C BC, ADIFF, ANEU, BMP, TROPI, GFR ####[place] [address] Platelet mean volume (PMV) 7.7 fL Normal 6.4-10.5 [facility] ([place] Comment on above: Performed By: #### C BC, ADIFF, ANEU, BMP, TROPI, GFR ####[place] [address] Platelets 212 10 3/mcL Normal 150-450 [facility] ([place] Comment on above: Performed By: #### C BC, ADIFF, ANEU, BMP, TROPI, GFR ####[place] [address] WBC (Leukocytes) 6.80 10 3/mcL Normal 4.50-10.80 [facility] ([place]) Comment on above: Performed By: #### C BC, ADIFF, ANEU, BMP, TROPI, GFR ####[place] [address] CMPon 10-06-2016 Albumin/Globulin Ratio 1.2 {ratio} Normal 0.9-1.6 [facility] ([place] Comment on above: Performed By: #### C BC, ADIFF, ANEU, BMP, TROPI, GFR ####[place] [address] Alk Phos 63 U/L Normal 38-126 [facility] ([place] Comment on above: Performed By: #### C BC, ADIFF, ANEU, BMP, TROPI, GFR ####[place] [address] Bili Total 0.6 mg/dL Normal 0.2-1.2 [facility] ([place] Comment on above: Performed By: #### C BC, ADIFF, ANEU, BMP, TROPI, GFR ####[address] [address] Globulin 3.2 G/dL Normal 1.5-3.8 [facility] ([place] Comment on above: Performed By: #### C BC, ADIFF, ANEU, BMP, TROPI, GFR ####[address] [address] Protein 7.0 G/dL Normal 6.0-8.5 [facility] ([place] Comment on above: Performed By: #### C BC, ADIFF, ANEU, BMP, TROPI, GFR ####[place] [address] Alanine aminotransferase (ALT) 59 U/L High 12-55 [facility] ([place] Comment on above: Performed By: #### C BC, ADIFF, ANEU, BMP, TROPI, GFR ####[address] [address] Albumin 3.8 G/dL Normal 3.2-4.8 [facility] ([place] Comment on above: Performed By: #### C BC, ADIFF, ANEU, BMP, TROPI, GFR ####[address] [address] Aspartate aminotransferase (AST) 39 U/L High 8-34 [facility] ([place] Comment on above: Performed By: #### C BC, ADIFF, ANEU, BMP, TROPI, GFR ####[address] [address] BUN/Creatinine Ratio 17.6 ratio Normal 10.0-22.0 [facility] ([place] Comment on above: Performed By: #### C BC, ADIFF, ANEU, BMP, TROPI, GFR ####[address] [address] Calcium 8.9 mg/dL Normal 8.4-10.1 [facility] ([place] Comment on above: Performed By: #### C BC, ADIFF, ANEU, BMP, TROPI, GFR ####[address] [address] Chloride 106 mmol/L Normal 98-110 [facility] ([place] Comment on above: Performed By: #### C BC, ADIFF, ANEU, BMP, TROPI, GFR ####[address] [address] CO2 27 mmol/L Normal 22-32 [facility] ([place] Comment on above: Performed By: #### C BC, ADIFF, ANEU, BMP, TROPI, GFR ####[place] [address] Creatinine 0.68 mg/dL Normal 0.60-1.40 [facility] ([place] Comment on above: Performed By: #### C BC, ADIFF, ANEU, BMP, TROPI, GFR ####[place] [address] Electrolyte Balance 8.0 mEq/L Normal 4.0-15.0 [facility] ([place]) Comment on above: Performed By: #### C BC, ADIFF, ANEU, BMP, TROPI, GFR ####[place] [address] Glucose mass conc 119 mg/dL High 82-115 [facility] ([place] Comment on above: Performed By: #### C BC, ADIFF, ANEU, BMP, TROPI, GFR ####[place] [address] Potassium molar conc 4.0 mmol/L Normal 3.5-5.0 [facility] ([place] Comment on above: Performed By: #### C BC, ADIFF, ANEU, BMP, TROPI, GFR ####[place] [address] Sodium 141 mmol/L Normal 136-145 [facility] ([place] Comment on above: Performed By: #### C BC, ADIFF, ANEU, BMP, TROPI, GFR ####[place] [address] Urea nitrogen 12.0 mg/dL Normal 8.0-22.0 [facility] ([place] Comment on above: Performed By: #### C BC, ADIFF, ANEU, BMP, TROPI, GFR ####[place] [address] GFRon 10-06-2016 eGFR (non-black) mL/min/{1.73_m2} Normal [facility] ([place]) Comment on above: Result Comment: GFR Population mean for , Non- Americans Ages 20-29 = 116 mL/min/1.73 sq.m. Ages 30-39 = 107 mL/min/1.73 sq.m. Ages 40-49 = 99 mL/min/1.73 sq.m. Ages 50-59 = 93 mL/min/1.73 sq.m. Ages 60-69 = 85 mL/min/1.73 sq.m. Ages 70+ = 75 mL/min/1.73 sq.m.Chronic Kidney Disease: Less than 60 mL/min/1.73 square metersEnd Stage Renal Disease: Less than 15 mL/min/1.73 square meters Performed By: #### C BC, ADIFF, ANEU, BMP, TROPI, GFR ####[place] [address] LIPIDon 10-06-2016 Cholesterol 123 mg/dL Normal 50-199 [facility] ([place] Comment on above: Result Comment: Chol esterol Reference Interval:Less than 200 [id number] Borderline high lhyx166 and above High risk Performed By: #### C BC, ADIFF, ANEU, BMP, TROPI, GFR ####[place] [address] HDL Cholesterol 41 mg/dL Normal 40-59 [facility] ([place] Comment on above: Result Comment: HDL Reference Interval:Less than 40 Low - high risk60 or above Optimal/lowers risk Performed By: #### C BC, ADIFF, ANEU, BMP, TROPI, GFR ####[place] [address] LDL Cholesterol 53 mg/dL Normal 0-129 [facility] ([place] Comment on above: Result Comment: LDL is a calculated result and requires a 12- hr fast.LDL Reference Interval:Less than 100 [id number] Near or above [id number] Borderline high [id number] High gysa320 and above Very high risk Performed By: #### C BC, ADIFF, ANEU, BMP, TROPI, GFR ####[place] [address] [place] [address] Triglyceride 143 mg/dL Normal 3-149 [facility] ([place] Comment on above: Result Comment: Trig lyceride Reference Interval:Less than 150 [id number] Borderline high [id number] High lrcr712 or higher Very high risk Performed By: #### C BC, ADIFF, ANEU, BMP, TROPI, GFR ####[place] [address] [place] [address] PROon 10-06-2016 INR Coag RelTime (PPP) 1.0 {INR} Normal [facility] ([place]) Comment on above: Result Comment: [employer] (CHEST, 1992, [id number])recommended therapeutic range for oral anticoagulant therapy is:LOW RISK: Prophylaxis of venous thrombosis INR: 2.0-3.0 Treatment of pulmonary embolism 2.0-3.0 Prevention of systemic embolism 2.0-3.0HIGH RISK: Mechanical prosthetic valves 2.5-3.5 Performed By: #### C BC, ADIFF, ANEU, BMP, TROPI, GFR ####[address] [address] Prothrombin time (PT) Coag time (PPP) 11.8 s Normal 9.0-14.4 [facility] ([place]) Comment on above: Result Comment: Effe ctive 09/30/07, Protime results may be affected by some antibiotics (i.e. Ciprofloxacin, Azithromycin, Bactrim) which may potentiate the action of oral anticoagulants, with further increases in Protime/INR. Performed By: #### C BC, ADIFF, ANEU, BMP, TROPI, GFR ####[address] [address] TROPIon 10-06-2016 Troponin I.cardiac mass conc 0.981 ng/mL High 0.000-0.040 [facility] ([place] Comment on above: Result Comment: Trop onin I reference ranges (11/23/13): 0.00-0.040 ng/mL Negative and non-diagnostic. >0.040 ng/mL Consistent with cardiac damage, increased clinical risk and possibility of myocardial infarction. Serial measurements, a rise & fall in test results, clinical history, appropriate symptoms and/or ECG changes may help assess possibility of SD. *Other non-acute coronary syndrome conditions such as CHF, myocarditis, pulmonary emboli, sepsis and cardiac surgery could result in myocardial damage and increased troponin levels. Performed By: #### C BC, ADIFF, ANEU, BMP, TROPI, GFR ####[address] [address] .Auto Diffon 10-05-2016 Basophils Auto #/vol (Bld) 0.00 10 3/mcL Normal 0.00-0.27 [facility] ([place] Comment on above: Performed By: #### C BC, ADIFF, ANEU, BMP, TROPI, GFR ####[address] [address] Basophils/100 WBC Auto (Bld) 0.4 % Normal 0.0-2.5 [facility] ([place] Comment on above: Performed By: #### C BC, ADIFF, ANEU, BMP, TROPI, GFR ####[address] [address] Eosinophils 0.20 10 3/mcL Normal 0.00-0.65 [facility] ([place] Comment on above: Performed By: #### C BC, ADIFF, ANEU, BMP, TROPI, GFR ####[address] [address] Eosinophils/100 leukocytes 2.6 % Normal 0.0-6.0 [facility] ([place] Comment on above: Performed By: #### C BC, ADIFF, ANEU, BMP, TROPI, GFR ####[address] [address] Lymphocytes 1.20 10 3/mcL Normal 0.90-4.32 [facility] ([place] Comment on above: Performed By: #### C BC, ADIFF, ANEU, BMP, TROPI, GFR ####[address] [address] Lymphocytes/100 leukocytes 16.8 % Low 20.0-40.0 [facility] ([place] Comment on above: Performed By: #### C BC, ADIFF, ANEU, BMP, TROPI, GFR ####[place] [address] Monocytes 0.60 10 3/mcL Normal 0.09-1.40 [facility] ([place] Comment on above: Performed By: #### C BC, ADIFF, ANEU, BMP, TROPI, GFR ####[address] [address] Monocytes/100 leukocytes 7.5 % Normal 2.0-13.0 [facility] ([place] Comment on above: Performed By: #### C BC, ADIFF, ANEU, BMP, TROPI, GFR ####[address] [address] Neutrophils/100 WBC Auto (Bld) 72.7 % Normal 50.0-75.0 [facility] ([place] Comment on above: Performed By: #### C BC, ADIFF, ANEU, BMP, TROPI, GFR ####[place] [address] .NEUABSon 10-05-2016 Neutrophils 5.40 10 3/mcL Normal 2.25-8.10 [facility] ([place] Comment on above: Performed By: #### C BC, ADIFF, ANEU, BMP, TROPI, GFR ####[place] [address] BMPon 10-05-2016 BUN/Creatinine Ratio 14.8 ratio Normal 10.0-22.0 [facility] ([place] Comment on above: Performed By: #### C BC, ADIFF, ANEU, BMP, TROPI, GFR ####[place] [address] Calcium 9.3 mg/dL Normal 8.4-10.1 [facility] ([place] Comment on above: Performed By: #### C BC, ADIFF, ANEU, BMP, TROPI, GFR ####[place] [address] Chloride 105 mmol/L Normal 98-110 [facility] ([place] Comment on above: Performed By: #### C BC, ADIFF, ANEU, BMP, TROPI, GFR ####[place] [address] CO2 23 mmol/L Normal 22-32 [facility] ([place] Comment on above: Performed By: #### C BC, ADIFF, ANEU, BMP, TROPI, GFR ####[place] [address] Creatinine 0.81 mg/dL Normal 0.60-1.40 [facility] ([place] Comment on above: Performed By: #### C BC, ADIFF, ANEU, BMP, TROPI, GFR ####[place] [address] Electrolyte Balance 11.0 mEq/L Normal 4.0-15.0 [facility] ([place]) Comment on above: Performed By: #### C BC, ADIFF, ANEU, BMP, TROPI, GFR ####[place] [address] Glucose mass conc 114 mg/dL Normal 82-115 [facility] ([place] Comment on above: Performed By: #### C BC, ADIFF, ANEU, BMP, TROPI, GFR ####[place] [address] Potassium molar conc 3.5 mmol/L Normal 3.5-5.0 [facility] ([place] Comment on above: Performed By: #### C BC, ADIFF, ANEU, BMP, TROPI, GFR ####[place] [address] Sodium 139 mmol/L Normal 136-145 [facility] [place] Comment on above: Performed By: #### C BC, ADIFF, ANEU, BMP, TROPI, GFR ####[place] [address] Urea nitrogen 12.0 mg/dL Normal 8.0-22.0 [facility] ([place] Comment on above: Performed By: #### C BC, ADIFF, ANEU, BMP, TROPI, GFR ####[place] [address] CBCon 10-05-2016 Erythrocyte distribution width Auto Ratio (RBC) 13.1 % Normal 11.5-15.5 [facility] ([place] Comment on above: Performed By: #### C BC, ADIFF, ANEU, BMP, TROPI, GFR ####[place] [address] Erythrocytes (RBC) 4.69 10 6/mcL Normal 4.50-6.00 [facility] ([place]) Comment on above: Performed By: #### C BC, ADIFF, ANEU, BMP, TROPI, GFR ####[place] [address] Hematocrit (HCT) 40.6 % Normal 40.0-52.0 [facility] ([place]) Comment on above: Performed By: #### C BC, ADIFF, ANEU, BMP, TROPI, GFR ####[place] [address] Hemoglobin mass conc (Bld) 14.3 G/dL Normal 13.0-17.5 [facility] ([place]) Comment on above: Performed By: #### C BC, ADIFF, ANEU, BMP, TROPI, GFR ####[place] [address] MCH 30.4 pg Normal 27.0-33.0 [facility] ([place]) Comment on above: Performed By: #### C BC, ADIFF, ANEU, BMP, TROPI, GFR ####[place] [address] MCHC mass conc (RBC) 35.2 G/dL Normal 32.0-36.0 [facility] ([place]) Comment on above: Performed By: #### C BC, ADIFF, ANEU, BMP, TROPI, GFR ####[place] [address] MCV 86.4 fL Normal 81.0-100.0 [facility] ([place] Comment on above: Performed By: #### C BC, ADIFF, ANEU, BMP, TROPI, GFR ####[id number] [place] [address] Platelet mean volume (PMV) 7.3 fL Normal 6.4-10.5 [facility] ([place]) Comment on above: Performed By: #### C BC, ADIFF, ANEU, BMP, TROPI, GFR ####[place] [address] [place] [id number] Platelets 222 10 3/mcL Normal 150-450 [facility] ([place] Comment on above: Performed By: #### C BC, ADIFF, ANEU, BMP, TROPI, GFR ####[place] [address] [place] [id number] WBC (Leukocytes) 7.40 10 3/mcL Normal 4.50-10.80 [facility] ([place]) Comment on above: Performed By: #### C BC, ADIFF, ANEU, BMP, TROPI, GFR ####[address] [address] ED Note-Provideron 7 ED Note-Provider Normal [facility] ([place]) GFRon 10-05-2016 eGFR (non-black) mL/min/{1.73_m2} Normal [facility] ([place]) Comment on above: Result Comment: GFR Population mean for , Non- Americans Ages 20-29 = 116 mL/min/1.73 sq.m. Ages 30-39 = 107 mL/min/1.73 sq.m. Ages 40-49 = 99 mL/min/1.73 sq.m. Ages 50-59 = 93 mL/min/1.73 sq.m. Ages 60-69 = 85 mL/min/1.73 sq.m. Ages 70+ = 75 mL/min/1.73 sq.m.Chronic Kidney Disease: Less than 60 mL/min/1.73 square metersEnd Stage Renal Disease: Less than 15 mL/min/1.73 square meters Performed By: #### C BC, ADIFF, ANEU, BMP, TROPI, GFR ####[address] [address] History and Physicalon 10-05 History and Physical Normal [facility] ([place]) TROPIon 10-05-2016 Troponin I.cardiac mass conc 1.050 ng/mL High 0.000-0.040 [facility] ([place]) Comment on above: Result Comment: Trop onin I reference ranges (11/23/13): 0.00-0.040 ng/mL Negative and non-diagnostic. >0.040 ng/mL Consistent with cardiac damage, increased clinical risk and possibility of myocardial infarction. Serial measurements, a rise & fall in test results, clinical history, appropriate symptoms and/or ECG changes may help assess possibility of SD. *Other non-acute coronary syndrome conditions such as CHF, myocarditis, pulmonary emboli, sepsis and cardiac surgery could result in myocardial damage and increased troponin levels. Performed By: #### C BC, ADIFF, ANEU, BMP, TROPI, GFR ####[address] [address] Troponin I.cardiac mass conc 0.771 ng/mL High 0.000-0.040 [facility] ([place] Comment on above: Result Comment: Trop onin I reference ranges (11/23/13): 0.00-0.040 ng/mL Negative and non-diagnostic. >0.040 ng/mL Consistent with cardiac damage, increased clinical risk and possibility of myocardial infarction. Serial measurements, a rise & fall in test results, clinical history, appropriate symptoms and/or ECG changes may help assess possibility of SD. *Other non-acute coronary syndrome conditions such as CHF, myocarditis, pulmonary emboli, sepsis and cardiac surgery could result in myocardial damage and increased troponin levels. Performed By: #### T ROPI ####[address] [address] Troponin I.cardiac mass conc 0.079 ng/mL High 0.000-0.040 [facility] ([place] Comment on above: Result Comment: Trop onin I reference ranges (11/23/13): 0.00-0.040 ng/mL Negative and non-diagnostic. >0.040 ng/mL Consistent with cardiac damage, increased clinical risk and possibility of myocardial infarction. Serial measurements, a rise & fall in test results, clinical history, appropriate symptoms and/or ECG changes may help assess possibility of SD. *Other non-acute coronary syndrome conditions such as CHF, myocarditis, pulmonary emboli, sepsis and cardiac surgery could result in myocardial damage and increased troponin levels. Performed By: #### C BC, ADIFF, ANEU, BMP, TROPI, GFR ####[place] [address] [place] [address] XR CHEST 2 VIEWSon 7 XR CHEST 2 VIEWS ORIGINALXR CHEST 2 V IEWS Technique: PA and lateral views Clinical Statement: CHEST PAIN Comparison: 08/20/2016 Findings: The heart, curt, mediastinum, and lungs are normal. No mass, infiltrate, pleural fluid, or vascular congestion is seen. The bones are intact. Impression: Normal chest. Interpreted By: Adrianne Zazueta MDPreliminary Report By: Adrianne Zazueta MDElectronically Signed By: Adrianne Zazueta MD Dictated Date: 10/05/2016 1:39:20 PM Prelim Date: 10/05/2016 1:39:20 PM Sign Date: 10/05/2016 1:39:45 PM Normal [facility] ([place]) Vital Signs Date Time Vital Sign Value Performing Clinician Facility 11-28-2021 08:56-0400 Body height 182.[address] Justice Root Work Phone: [facility] Work Phone: 11-28-2021 08:55-0400 Body mass index (BMI) [Ratio] 34 kg/m2 Dr. Justice Root Work Phone: [facility] Work Phone: 11-28-2021 08:55-0400 Body temperature 97.3 [degF] Dr. Justice Root Work Phone: [facility] Work Phone: 11-28-2021 08:55-0400 Body weight 113.[address] Justice Root Work Phone: [facility] Work Phone: 11-28-2021 08:55-0400 Diastolic blood pressure 89 mm[Hg] Dr. Justice Root Work Phone: [facility] Work Phone: 11-28-2021 08:55-0400 Heart rate 79 /min Dr. Justice Root Work Phone: [facility] Work Phone: 11-28-2021 08:55-0400 Respiratory rate 16 /min Dr. Justice Root Work Phone: [facility] Work Phone: 11-28-2021 08:55-0400 SaO2% (BldA) [Mass fraction] 97 % Dr. Justice Root Work Phone: [facility] Work Phone: 11-28-2021 08:55-0400 Systolic blood pressure 149 mm[Hg] Dr. Justice Root Work Phone: [facility] Work Phone: 10-18-2021 08:22-0400 Body mass index (BMI) [Ratio] 34.2 kg/m2 Dr. Justice Root Work Phone: [facility] Work Phone: 10-18-2021 08:22-0400 Body temperature 97.2 [degF] Dr. Justice Root Work Phone: [facility] Work Phone: 10-18-2021 08:22-0400 Body weight 114.[address] Justice Root Work Phone: [facility] Work Phone: 10-18-2021 08:22-0400 Diastolic blood pressure 82 mm[Hg] Dr. Justice Root Work Phone: [facility] Work Phone: 10-18-2021 08:22-0400 Heart rate 16 /min Dr. Justice Root Work Phone: [facility] Work Phone: 10-18-2021 08:22-0400 Respiratory rate 16 /min Dr. Justice Root Work Phone: [facility] Work Phone: 10-18-2021 08:22-0400 SaO2% (BldA) [Mass fraction] 98 % Dr. Justice Root Work Phone: [facility] Work Phone: 10-18-2021 08:22-0400 Systolic blood pressure 134 mm[Hg] Dr. Justice Root Work Phone: [facility] Work Phone: 10-12-2021 08:36-0400 Body mass index (BMI) [Ratio] 34.3 kg/m2 Dr. Justice Root Work Phone: [facility] Work Phone: 10-12-2021 08:36-0400 Body temperature 97.8 [degF] Dr. Justice Root Work Phone: [facility] Work Phone: 10-12-2021 08:36-0400 Body weight 114.[address] Justice Root Work Phone: [facility] Work Phone: 10-12-2021 08:36-0400 Diastolic blood pressure 87 mm[Hg] Dr. Justice Root Work Phone: [facility] Work Phone: 10-12-2021 08:36-0400 Heart rate 87 /min Dr. Justice Root Work Phone: [facility] Work Phone: 10-12-2021 08:36-0400 Respiratory rate 16 /min Dr. Justice Root Work Phone: [facility] Work Phone: 10-12-2021 08:36-0400 SaO2% (BldA) [Mass fraction] 99 % Dr. Justice Root Work Phone: [facility] Work Phone: 10-12-2021 08:36-0400 Systolic blood pressure 149 mm[Hg] Dr. Justice Root Work Phone: [facility] Work Phone: 10-04-2021 08:24-0400 Body mass index (BMI) [Ratio] 34.3 kg/m2 Dr. Justice Root Work Phone: [facility] Work Phone: 10-04-2021 08:24-0400 Body temperature 97.1 [degF] Dr. Justice Root Work Phone: [facility] Work Phone: 10-04-2021 08:24-0400 Body weight 114.[address] Justice Root Work Phone: [facility] Work Phone: 10-04-2021 08:24-0400 Diastolic blood pressure 85 mm[Hg] Dr. Justice Root Work Phone: [facility] Work Phone: 10-04-2021 08:24-0400 Heart rate 84 /min Dr. Justice Root Work Phone: [facility] Work Phone: 10-04-2021 08:24-0400 Respiratory rate 16 /min Dr. Justice Root Work Phone: [facility] Work Phone: 10-04-2021 08:24-0400 SaO2% (BldA) [Mass fraction] 98 % Dr. Justice Root Work Phone: [facility] Work Phone: 10-04-2021 08:24-0400 Systolic blood pressure 134 mm[Hg] Dr. Justice Root Work Phone: [facility] Work Phone: 08-23-2021 09:59-0400 Body height 182.9 cm Es Theodora PA-C Work Phone: [facility] 08-23-2021 09:59-0400 Body temperature 97.5 [degF] Es Yip PA-C Work Phone: [facility] 08-23-2021 09:59-0400 Body weight 113.4 kg Es Yip PA-C Work Phone: [facility] 08-23-2021 09:59-0400 Diastolic blood pressure 72 mm[Hg] Es Yip PA-C Work Phone: [facility] 08-23-2021 09:59-0400 Heart rate 104 /min Es Lamasf PA-C Work Phone: [facility] 08-23-2021 09:59-0400 SaO2% (BldA) [Mass fraction] 97 % Es Yip PA-C Work Phone: [facility] 08-23-2021 09:59-0400 Systolic blood pressure 132 mm[Hg] Es Yip PA-C Work Phone: [facility] 08-16-2021 10:00-0400 Body temperature 98.2 [degF] Dr. Justice Root Work Phone: [facility] Work Phone: 08-16-2021 10:00-0400 Diastolic blood pressure 79 mm[Hg] Dr. Justice Root Work Phone: [facility] Work Phone: 08-16-2021 10:00-0400 Heart rate 73 /min Dr. Justice Root Work Phone: [facility] Work Phone: 08-16-2021 10:00-0400 Respiratory rate 16 /min Dr. Justice Root Work Phone: [facility] Work Phone: 08-16-2021 10:00-0400 SaO2% (BldA) [Mass fraction] 98 % Dr. Justice Root Work Phone: [facility] Work Phone: 08-16-2021 10:00-0400 Systolic blood pressure 142 mm[Hg] Dr. Justice Root Work Phone: [facility] Work Phone: 08-16-2021 06:59-0400 Body height 182.[address] Justice Root Work Phone: [facility] Work Phone: 08-16-2021 06:59-0400 Body mass index (BMI) [Ratio] 34.4 kg/m2 Dr. Justice Root Work Phone: [facility] Work Phone: 08-16-2021 06:59-0400 Body weight 115.[address] Justice Root Work Phone: [facility] Work Phone: 08-09-2021 13:08-0400 Body temperature 97.7 [degF] Clinton Kramer MD Work Phone: [facility] 08-09-2021 13:08-0400 Diastolic blood pressure 85 mm[Hg] Clinton Kramer MD Work Phone: [facility] 08-09-2021 13:08-0400 Heart rate 77 /min Clinton Kramer MD Work Phone: [facility] 08-09-2021 13:08-0400 Respiratory rate 14 /min Clinton Kramer MD Work Phone: [facility] 08-09-2021 13:08-0400 SaO2% (BldA) [Mass fraction] 95 % Clinton Kramer MD Work Phone: [facility] 08-09-2021 13:08-0400 Systolic blood pressure 147 mm[Hg] Clinton Kramer MD Work Phone: [facility] 07-24-2021 09:15-0400 Body height 182.[address] Justice Root Work Phone: [facility] Work Phone: 07-24-2021 09:15-0400 Body mass index (BMI) [Ratio] 34.7 kg/m2 Dr. Justice Root Work Phone: [facility] Work Phone: 07-24-2021 09:15-0400 Body temperature 98 [degF] Dr. Justice Root Work Phone: [facility] Work Phone: 07-24-2021 09:15-0400 Body weight 116.[address] Justice Root Work Phone: [facility] Work Phone: 07-24-2021 09:15-0400 Diastolic blood pressure 98 mm[Hg] Dr. Justice Root Work Phone: [facility] Work Phone: 07-24-2021 09:15-0400 Heart rate 78 /min Dr. Justice Root Work Phone: [facility] Work Phone: 07-24-2021 09:15-0400 Respiratory rate 16 /min Dr. Justice Root Work Phone: [facility] Work Phone: 07-24-2021 09:15-0400 SaO2% (BldA) [Mass fraction] 97 % Dr. Justice Root Work Phone: [facility] Work Phone: 07-24-2021 09:15-0400 Systolic blood pressure 145 mm[Hg] Dr. Justice Root Work Phone: [facility] Work Phone: 06-22-2021 12:47-0400 Body height 182.[address] Justice Root Work Phone: [facility] Work Phone: 06-22-2021 12:47-0400 Body mass index (BMI) [Ratio] 34.5 kg/m2 Dr. Justice Root Work Phone: [facility] Work Phone: 06-22-2021 12:47-0400 Body weight 115.[address] Justice Root Work Phone: [facility] Work Phone: 06-22-2021 12:47-0400 Diastolic blood pressure 87 mm[Hg] Dr. Justice Root Work Phone: [facility] Work Phone: 06-22-2021 12:47-0400 Heart rate 84 /min Dr. Justice Root Work Phone: [facility] Work Phone: 06-22-2021 12:47-0400 Respiratory rate 16 /min Dr. Justice Root Work Phone: [facility] Work Phone: 06-22-2021 12:47-0400 SaO2% (BldA) [Mass fraction] 97 % Dr. Justice Root Work Phone: [facility] Work Phone: 06-22-2021 12:47-0400 Systolic blood pressure 136 mm[Hg] Dr. Justice Root Work Phone: [facility] Work Phone: 06-13-2021 16:10-0400 Body height 182.9 cm Es Theodora PA-C Work Phone: [facility] 06-13-2021 16:10-0400 Body temperature 98.01 [degF] Es Theodora PA-C Work Phone: [facility] 06-13-2021 16:10-0400 Body weight 116.12 kg Es Doerun PA-C Work Phone: [facility] 06-13-2021 16:10-0400 Diastolic blood pressure 83 mm[Hg] Es Yip PA-C Work Phone: [facility] 06-13-2021 16:10-0400 Heart rate 89 /min Es Lamasf PA-C Work Phone: [facility] 06-13-2021 16:10-0400 SaO2% (BldA) [Mass fraction] 99 % Es Yip PA-C Work Phone: [facility] 06-13-2021 16:10-0400 Systolic blood pressure 161 mm[Hg] Es Yip PA-C Work Phone: [facility] Encounters Encounter Date Encounter Type Care Provider Facility Start: 07-31-2024 ambulatory Justice Root Facility: [facility] Start: 04-14-2024 End: 04-14-2024 ambulatory Justice Root Facility:[facility] Start: 10-08-2023 End: 10-08-2023 ambulatory Elayne Oak[place] Facility:[facility] Start: 08-20-2023 End: 08-20-2023 ambulatory Justice Root Facility:[facility] Start: 04-01-2023 End: 04-01-2023 ambulatory [facility] Work Phone: Start: 04-01-2023 End: 04-01-2023 Patient encounter procedure [facility] Work Phone: Start: 09-28-2022 End: 09-28-2022 ambulatory [facility] Work Phone: Start: 09-28-2022 End: 09-28-2022 Patient encounter procedure [facility] Work Phone: Start: 04-06-2022 End: 04-06-2022 ambulatory [facility] Work Phone: Start: 04-06-2022 End: 04-06-2022 [facility] Start: 01-26-2022 End: 01-26-[address] Justice Root Work Phone: [facility] Work Phone: Start: 01-26-2022 End: 01-26-[address] [facility] Phone[facility] Start: 11-28-2021 End: 11-28-[address] Justice Root Work Phone: [facility] Start: 10-19-2021 Non-patient / Non-visit Dr. Jayce Root Work Phone: [facility] Start: 10-19-[address] [facility] Start: 10-18-2021 End: 10-18-[address] Justice Root Work Phone: [facility] Start: 10-12-2021 End: 10-12-[address] Justice Root Work Phone: [facility] Start: 10-11-2021 End: 10-11-[address] Justice Root Work Phone: [facility] Start: 10-04-2021 End: 10-04-[address] Justice Root Work Phone: [facility] Start: 08-23-2021 End: 08-23-2021 Patient encounter procedure Es Yip PA-C Work Phone: General Surgery Comment on above: Serrated polyp of co mateo (Primary Dx) Start: 08-22-2021 End: 08-22-[address] Justice Root Work Phone: [facility] Start: 08-22-2021 Non-patient / Non-visit Dr. Jayce Root Work Phone: [facility] Start: 08-22-[address] [facility] Start: 08-16-2021 End: 08-16-2021 Admission to same day surgery center Dr. Justice Root Work Phone: [facility] Start: 08-09-2021 End: 08-09-2021 Subsequent hospital visit by physician Clinton Kramer MD Work Phone: [facility] Comment on above: History of colon natacha yps [Z86.010] Start: 07-31-2021 End: 07-31-[address] [facility] Root [facility] Start: 07-24-2021 End: 07-24-[address] Justice Root Work Phone: [facility] Start: 07-17-2021 End: 07-17-[address] [facility] Start: 07-10-[address] [facility] Start: 06-22-2021 End: 06-22-[address] Justice Root Work Phone: [facility] Start: 06-20-2021 End: 06-20-[address] Justice Root Work Phone: [facility], Spec[facility] Start: 06-13-2021 End: 06-13-2021 Patient encounter procedure Es Yip PA-C Work Phone: General Surgery Comment on above: Encounter for screen ing for malignant neoplasm of colon (Primary Dx); Gastroesophageal reflux disease, unspecified whether esophagitis present; History of colonic polyps; Tortuous colon Start: 06-09-2021 Non-patient / Non-visit Dr. Jayce Root Work Phone: [facility] Start: 05-18-2021 End: 05-18-[address] Justice Root Work Phone: [facility] Start: 06-07-2020 End: 06-07-2020 Patient encounter procedure [facility] Start: 05-17-2020 End: 05-17-2020 Patient encounter procedure [facility] Terri [facility] Start: 10-16-2016 End: 10-17-2016 Ambulatory BENJAMIN ZACARIAS Facility:A Start: 10-05-2016 End: 10-09-2016 Evaluation and management of inpatient [facility] Facility:A Procedures Date Procedure Procedure Detail Performing Clinician Start: 01-26-2022 Diagnostic radiograp hy of abdomen Dr. Justice Root Work Phone: Start: 08-22-2021 MRI of pelvis with contrast Dr. Justice Root Work Phone: Start: 08-16-2021 Space OAR (Not Applicable) Dr. Justice Root Work Phone: Start: 08-09-2021 Gluc bld gluc mntr d ev cleared fda spec home use Bhavna Dubon MD Work Phone: Start: 08-09-2021 Colon ca scrn not hi rsk ind Es Yip PA-C Work Phone: Start: 08-09-2021 Gluc bld gluc mntr d ev cleared fda spec home use Bhavna Dubon MD Work Phone: Start: 08-09-2021 Colonoscopy Clinton hernandez MD Work Phone: Start: 07-31-2021 CT of abdomen and pe lvis without contrast Dr. Justice Root Work Phone: Start: 07-17-2021 Radionuclide whole b angel bone study Dr. Justice Root Work Phone: Start: 05-18-2021 Diagnostic radiograp hy of abdomen Dr. Justice Root Work Phone: Start: 10-29-2016 Adult depression screening assessment Es Yip PA-C Work Phone: Start: 10-16-2016 History of placement of stent for coronary artery disease History of coronary artery stent placement Dr. Justice Root Work Phone: Start: 03-03-2012 Colonoscopy Es ron PA-C Work Phone: Plan of Treatment Date Care Activity Detail Author Start: 08-09-2026 Colonoscopy COLONOSCOPY [facility] Start: 08-09-2026 COLORECTAL CANCER SCREENING COLORECTAL CANCER SCREENING [facility] Start: 08-09-2024 Colonoscopy COLONOSCOPY [facility] Start: 08-09-2024 COLORECTAL CANCER SCREENING COLORECTAL CANCER SCREENING [facility] Start: 12-10-2021 Urine microalbumin profile DTAP,TDAP,TD (2 - Td or Tdap) [facility] Start: 11-16-2021 Influenza vaccination INFLUENZ A (Season Ended) [facility] Start: 08-16-2021 Anesthesia anorectal procedure ANESTH ANORECTAL SURGERY [facility] Work Phone: Start: 08-16-2021 Plmt interstitial de v radiat tx prostate 1/mult PLACE RT DEVICE/MARKER PROS [facility] Work Phone: Start: 08-16-2021 Transperineal plmt biodegradable matrl 1/design eng njx TPRNL PLMT BIODEGRDABL MATRL [facility] Work Phone: Start: 05-14-2021 Hemoglobin A1c/Hemoglobin.total in Blood HBA1C [facility] Start: 03-18-2021 ADVANCE DIRECTIVE DISCUSSION ADVANCE DIRECTIVE DISCUSSION [facility] Start: 2018 PNEUMOVAX AGE 65 AND OVER WITH 5YR LOOKBACK (#1) PNEUMOVAX AGE 65 AND OVER WITH 5YR LOOKBACK (#1) [facility] Start: 11-20-2017 Hepatitis B screening URINE ALBUMIN:CREATININE RATIO [facility] Start: 11-20-2017 Hepatitis B surface antibody level LDL CHOLESTEROL [facility] Start: 11-12-2017 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 ANNUAL PCP TEAM CHRONIC DISEASE VISIT [facility] Start: 10-29-2017 Adult depression screening assessment DEPRESSION SCREENING [facility] Start: 06-14-2017 3 comp foot exam completed DIABETIC FOOT EXAM [facility] Start: 05-15-2017 Hepatitis C antibody , confirmatory test DILATED RETINAL EXAM [facility] Start: 03-03-2017 Colonoscopy COLONOSCOPY [facility] Start: 03-03-2017 COLORECTAL CANCER SCREENING COLORECTAL CANCER SCREENING [facility] Start: 10-26-2011 PROSTATE CANCER SCREENING DISCUSSION PROSTATE CANCER SCREENING DISCUSSION [facility] Start: 08-16-2007 PNEUMOCOCCAL: 65+ (2 - PCV) PNEUMOCOCCAL: 65+ (2 - PCV) [facility] Start: 06-17-2003 SHINGRIX VACCINE (1 of 2) SHINGRIX VACCINE (1 of 2) [facility] Start: 1998 COLOGUARD (FIT-DNA) COLOGUARD (FIT-D NA) [facility] Start: [address] COLONOGRAPHY [facility] Start: 1998 FECAL OCCULT BLOOD FECAL OCCULT BLOO D [facility] Start: 1998 SIGMOIDOSCOPY SIGMOIDOSCOPY [facility] Start: 06-17-1971 BP CONTROLLED (<130/80) BP CONTROLLE D (<130/80) [facility] Start: 1958 COVID-19 VACCINE (#1) COVID-19 VACCI NE (#1) [facility] Start: 1958 COVID-19 VACCINE (1) COVID-19 VACCIN E (1) [facility] Patient referral [facility] Work Phone: SURGICAL PATHOLOGY [facility] Work Phone: Comment on above: Release Upon Orderin g for 1 Occurrences starting 08/09/2021, 1 [facility] Immunizations Immunization Date Immunization Notes Care Provider Malena bess 12-27-2014 influenza, injectabl e, quadrivalent, contains preservative Es Yip PA-C Work Phone: [facility] 12-10-2013 influenza, seasonal, injectable Es Yip PA-C Work Phone: [facility] Work Phone: 02-19-2013 influenza virus vacc ine, unspecified formulation Es Yip PA-C Work Phone: [facility] 12-11-2011 tetanus toxoid, redu lola diphtheria toxoid, and acellular pertussis vaccine, adsorbed Esliam Yip PA-C Work Phone: [facility] Work Phone: 02-20-2011 influenza virus vacc ine, unspecified formulation Es Yip PA-C Work Phone: [facility] 08-15-2006 pneumococcal polysaccharide vaccine, 23 valent Clinton Kramer MD Work Phone: [facility] Work Phone: Payers Date Payer Category Payer Self-pay [id number] 2018 Unknown MMO MMO [employer] [id number] 2018-Present [phone] [address] [place] [address] PPO [id number] 2008 Unknown [id number] 1953 Unknown [id number] Medicare [id number] Unknown [id number] Unknown [id number] Unknown [id number] Social History Date Type [facility]ail [facility] Start: 06-13-2021 End: 08-29-2021 Alcohol intake Current drinker of alcohol (finding) [facility] Start: 1955 Sex Assigned At Not on file C [facility] Start: 06-03-2021 End: 08-23-2021 Exposure to SARS-CoV-2 (event) Not sure [facility] Start: 06-22-2021 End: 08-10-2021 Tobacco smoking status NHIS Unknown if ever smoked [facility] Start: 1955 Sex Assigned At Male [facility] Medical Equipment Procedure Code Equipment Code Equipment Origin al Text Equipment Identifier Dates Test blood sugar (s) 2 times daily. Dx: 250.02. Insulin: No Start: 09-27-2014 Comment on above: Test blood sugar(s) 2 times daily. Dx: 250.02. Insulin: No MARKERS, FIDUCIA L GOLD FDA Start: 08-16-2021 MARKERS, FIDUCIA L GOLD FDA Start: 08-16-2021 MARKERS, FIDUCIA L GOLD FDA Start: 08-16-2021 Radiotherapy protection spacer [id number] FDA Start: 08-16-2021 MARKERS, FIDUCIA L GOLD FDA Start: 08-16-2021 MARKERS, FIDUCIA L GOLD FDA Start: 08-16-2021 MARKERS, FIDUCIA L GOLD FDA Start: 08-16-2021 MARKERS, FIDUCIA L GOLD FDA Start: 08-16-2021 MARKERS, FIDUCIA L GOLD FDA Start: 08-16-2021 MARKERS, FIDUCIA L GOLD FDA Start: 08-16-2021 MARKERS, FIDUCIA L GOLD FDA Start: 08-16-2021 MARKERS, FIDUCIA L GOLD FDA Start: 08-16-2021 MARKERS, FIDUCIA L GOLD FDA Start: 08-16-2021 MARKERS, FIDUCIA L GOLD FDA Start: 08-16-2021 MARKERS, FIDUCIA L GOLD FDA Start: 08-16-2021 MARKERS, FIDUCIA L GOLD FDA Start: 08-16-2021 Mental Status Date Assessment Result Facility 08-16-2021 Cognitive function Voice/Name [facility] Work Phone: Clinical Notes 11-02-2013 to 08-23-2021 Patient InstructionsEs Yip PA-C - 08/23/2021 10:05 AM Leonard Kramer MD - 08/09/2021 12:30 PM Clayton Yip PA-C - 06/13/2021 4:23 PM EDMarissacaroline Ortizz - 06/13/2021 4:15 PM EDT Note Date & Type Note Facility 08-23-2021 Note HNO ID: [id number] Author: Es Yip PA-C Service: ? Author Type: Physician Family Medicine Chair Type: Progress Notes Filed: 08/29/2021 1:09 PM Note Text: FOLLOW UP VISIT - [id number] DATE OF SERVICE: 08/23/2021 : 1955 REFERRING PHYSICIAN: Justice Root DO Pranav is a patient I [...] use. No record of EGD completion in [facility]. Reviewed with patient, who denies having any [...] which included preparing to see the patient, [id number] patient care, completing clinical documentation, obtaining and/or reviewing separately obtained history, counseling and educating the patient/family/caregiver, independently interpreting results (not separately reported) and communicating results to the patient/family/caregiver. Es Yip PA-C [facility] 08-23-2021 Instructions Es Yip PA-C - 08/23/2021 10:16 AM EDT The following instructions are important for you related to your office visit today with the [facility] General Surgeons. INSTRUCTIONS FOLLOWING A POLYP FOUND [...] you should contact our office immediately @ [phone] and ask to be transferred to the General Surgery department. documented in this encounter [facility] 08-23-2021 History of Present illness Narrative FOLLOW UP VISIT - ENDOSCOPY NAME: Pranav Alicea [facility] NO.: [id number] DATE OF SERVICE: 08/23/2021 : 1955 REFERRING PHYSICIAN: Justice Root DO Pranav is a patient I [...] use. No record of EGD completion in [facility]. Reviewed with patient, who denies having any [...] which included preparing to see the patient, [id number] patient care, completing clinical documentation, obtaining and/or reviewing separately obtained history, counseling and educating the patient/family/caregiver, independently interpreting results (not separately reported) and communicating results to the patient/family/caregiver. Es Yip PA-C documented in this encounter [facility] 08-09-2021 History and physical note Images from [...] barium enema. Past medical history significant for SD and stent placement, type II diabetes, sleep [...] current facility-administered medications for this visit. ALLERGIES: Katy Inhibitors and Iodine PERSONAL HISTORY: SOCIAL HISTORY [...] entered by the nurse and reviewed by me Nursing Notes: Samantha Grove 06/13/2021 4:17 PM [...] patient was offered a surgery/procedure at a [facility] facility. I have counseled the patient regarding [...] TIME: 12:13 PM documented in this encounter [facility] 06-13-2021 Note HNO ID: [id number] Author: Es Yip PA-C Service: ? Author Type: Physician Family Medicine Chair Type: Progress Notes Filed: 06/19/2021 12:39 PM [...] barium enema. Past medical history significant for SD and stent placement, type II diabetes, sleep [...] current facility-administered medications for this visit. ALLERGIES: Katy Inhibitors and Iodine PERSONAL HISTORY: Social History [...] entered by the nurse and reviewed by wv Nursing Notes: Samantha Grove 06/13/2021 4:17 PM [...] history of epilepsy/ (more content not included)... [facility] 06-13-2021 History of Present illness [...] barium enema. Past medical history significant for SD and stent placement, type II diabetes, sleep [...] current facility-administered medications for this visit. ALLERGIES: Katy Inhibitors and Iodine PERSONAL HISTORY: Social History [...] entered by the nurse and reviewed by wv Nursing Notes: Samantha Grove 06/13/2021 4:17 PM [...] patient was offered a surgery/procedure at a [facility]. I have counseled the patient regarding the [...] whether esophagitis present Consultation requested by Dr. Roto for an opinion regarding screening colonoscopy. My final recommendations will be communicated back to the requesting physician by way of shared Medical record or letter to requesting physician via US mail. Es Yip PA-C documented in this encounter [facility] 06-13-2021 Nurse Note REVIEW OF SYSTEMS: General: [...] 2011 Samantha Grove documented in this encounter [facility] 10-16-2016 Evaluation note Diagnosis Onset Date Essential hypertension acute Hyperlipidemia acute History of coronary artery stent placement October 16, 2016 [facility] Work Phone: 1(711) 932-583908-01-2017 Evaluation note* Diagnosis Onset Date Resolution Status Essential hypertension acute Hyperlipidemia acute History of coronary artery stent placement October 16, 2016 chronic [id number] acute [facility] Work Phone: 1(781) 890-514908-18-2014 History of Past illness Narrative* Problem Noted Date Resolved Date Open wound(s) (multiple) of unspecified site(s), without mention of complication 11/02/2013 12/27/2014 documented as of this encounter (statuses as of 06/19/2021) [facility] History of Past illness Narrative* Problem Noted Date Resolved Date Open wound(s) (multiple) of unspecified site(s), without mention of complication 11/02/2013 12/27/2014 documented as of this encounter (statuses as of 08/10/2021) [facility] History of Past illness Narrative* Problem Noted Date Resolved Date Open wound(s) (multiple) of unspecified site(s), without mention of complication 11/02/2013 12/27/2014 documented as of this encounter (statuses as of 08/29/2021) [facility] note* Diagnosis Encounter for screening for malignant neoplasm of colon- Primary Special screening for malignant neoplasms, colon Gastroesophageal reflux disease, unspecified whether esophagitis present History of colonic polyps Personal history of colonic polyps Tortuous colon Volvulus documented in this encounter [facility] note* Diagnosis History of colon polyps Personal history of colonic polyps documented in this encounter [facility] note* Diagnosis Serrated polyp of colon- Primary documented in this encounter [facility] note* Diagnosis Onset Date Resolution Status [id number] acute [id number] acute [id number] acute [id number] acute [facility] Work Phone: Evaluation noteNo assessment information available [facility] Work Phone: Reason for referral (narrative)* Outpatient Procedure (Routine) - Closed Specialty Diagnoses / Procedures Referred By Lachelle t Referred To Contact [facility] Diagnoses History of colon polyps Procedures COLONOSCOPY SCREENING COLONOSCOPY FLX DX W/COLLJ SPEC WHEN PFRMD Es Yip PA-C [address] [address] [facility] [address] [place] [address] Referral ID Status Reason Start Date Expiration Date V isits Requested Visits Authorized [id number] Closed Auto-Generate d Referral 2021 06/14/2022 1 1 [facility] for visit Narrative* Outpatient Procedure (Routine) - Closed Specialty Diagnoses / Procedures Referred By Contstanton t Referred To Contact [facility] Diagnoses History of colon polyps Procedures COLONOSCOPY SCREENING COLONOSCOPY FLX DX W/COLLJ SPEC WHEN PFRMD Es Yip PA-C [address] [place] [address] [facility] [address] [place] [address] Referral ID Status Reason Start Date Expiration Date V isits Requested Visits Authorized [id number] Closed Auto-Generate d Referral 2021 06/14/2022 1 1 [facility] Summary Purpose Family History No Family History Records Found Relationship Condition Age at Onset Recorded Date/T asher mother History of defect Unknown Arthritis Unknown Chronic obstructive pulmonary disease Unk nown father Coronary artery disease Unknown Myocardial infarction 45 Hypertension Unknown Hyperlipidemia Unknown uncle Coronary artery disease Unknown Myocardial infarction 49 sister History of defect Unknown Advance Directives No Advanced Directives Records Found Advance Directive Response Recorded Date/ Time Living Will No January 13 12:30pm Power of Physician Relations Specialist No January 13, 2015 12:30pm Documents on File Type Date Recorded 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 Advance Directive(s) 08/09/2021 10:13 AM Advance Directive(s) 07/21/2021 5:08 PM Advance Directive Response Recorded Date/ Time Living Will No August 10, 2021 2 :06pm Power of Physician Relations Specialist No August 10, 2021 2:06pm Documents on File Type Date Recorded 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 Advance Directive(s) 08/09/2021 10:13 AM Advance Directive(s) 07/21/2021 5:08 PM Advance Directive Response Recorded Date/ Time Living Will No August 10, 2021 1 :06pm Power of Physician Relations Specialist No August 10, 2021 1:06pm Chief Complaint and Reason for Visit Chief Complaint Amb Documentation EST C[facility] ([facility]) Reason for Visit Essential hypertensi on Hyperlipidemia History of coronary artery stent placement Chief Complaint Amb Documentation EST CARE ([facility]) MALIGNANT NEOPLASM OF PROSTATE Reason for Visit Essential hypertensi on Hyperlipidemia History of coronary artery stent placement Chief Complaint Amb Documentation EST CARE ([facility]) MALIGNANT NEOPLASM OF PROSTATE CONSULT PROSTATE CANCER/ DR JOHNSTON PROSTATE CA STAGING Reason for Visit Essential hypertensi on Hyperlipidemia History of coronary artery stent placement [id number] Chief Complaint Amb Documentation EST CARE ([facility]) BUCIO MALIGNANT NEOPLASM OF PROSTATE CONSULT PROSTATE CANCER/ DR JOHNSTON PROSTATE CA STAGING SPACE OARS Gel and Gold Markers Reason for Visit Essential hypertensi on Hyperlipidemia History of coronary artery stent placement [id number] Chief Complaint Amb Documentation EST CARE ([facility]) MALIGNANT NEOPLASM OF PROSTATE CONSULT PROSTATE CANCER/ DR JOHNSTON PROSTATE CA STAGING SPACE OARS Gel and Gold Markers BUCIO PLANNING FOR XRT, INT RISK CANCER Reason for Visit Essential hypertensi on Hyperlipidemia History of coronary artery stent placement [id number] Chief Complaint OTV otv otv OTV BUCIO Amb Documentation 1 month f/u post RT Reason for Visit [id number] Chief Complaint 2 DRS/ 2 ORDERS Medications Administered Section Inactive Administered Medications - [...] ized section and content) DATE CREATED AUTHOR 09/11/2017 [facility] ([place]) DATE CREATED AUTHOR AUTHOR'S ORGANIZ ATION 06/18/2020 [facility] DATE CREATED AUTHOR AUTHOR'S ORGANIZ ATION 07/05/2020 [facility] DATE CREATED AUTHOR AUTHOR'S ORGANIZ ATION 08/10/2021 [facility] DATE CREATED AUTHOR AUTHOR'S ORGANIZ ATION 09/14/2021 [facility] DATE CREATED AUTHOR AUTHOR'S ORGANIZ ATION 07/29/2024 [facility] Source Comments (unrecognize d section and content) In the event this informatio n is protected by the Federal Confidentiality of Alcohol and Drug Abuse Patient Records regulations: The Federal rules restrict any use of the information to criminally investigate or prosecute any alcohol or drug abuse patient.[facility] the event this information is protected by the Federal Confidentiality of Alcohol and Drug Abuse Patient Records regulations: The Federal rules restrict any use of the information to criminally investigate or prosecute any alcohol or drug abuse patient.[facility] the event this information is protected by the Federal Confidentiality of Alcohol and Drug Abuse Patient Records regulations: The Federal rules restrict any use of the information to criminally investigate or prosecute any alcohol or drug abuse patient.[facility] Reason for Visit (unrecogniz ed section and content) Reason Comments Consult Colonoscopy Reason Comments Follow Up colonoscopy Care Teams (unrecognized sec tion and content) Electrical Wiring Lineman Relationship Specialty Start Date End Date Justice Root DO [address] [place], [place] [address] PCP - General Family Practice 05/30/21 Electrical Wiring Lineman Relationship Specialty Start Date End Date Justice Root DO [address] [place] [address] PCP - General Family Practice 05/30/21 Electrical Wiring Lineman Relationship Specialty Start Date End Date Justice Root DO [address] [place] [address] PCP - General Family Practice 05/30/21 Team Status: Active Member Role Status Dates Dr. Justice Root DO Family Provider Active Dr. Justice Root DO Primary Care Provider Active Team Status: Inactive Member Role Status Dates Dr. Justice Root DO Primary Care Provider Active Dr. Alan Johnston MD Attending Provider, Referr ing Provider Active Team Status: Inactive Member Role Status Dates Dr. Justice Root DO Primary Care Prov ider, Attending Provider, Referring Provider Active Team Status: Inactive Member Role Status Dates Dr. Justice Root DO Primary Care Prov ider, Attending Provider, Referring Provider Active Rosaline Ely , SUBSTATION TECHNICIAN-C Other Provider Active Goals (unrecognized section and content) Goals may be documented in a n alternate sectionGoals may be documented in an alternate sectionGoals may be documented in an alternate sectionGoals may be documented in an alternate sectionGoals may be documented in an alternate sectionGoals may be documented in an alternate sectionGoals may be documented in an alternate sectionGoals may be documented in an alternate sectionGoals may be documented in an alternate section FOR RECORDS PERTAINING TO PATIENTS WHO ARE [...] BE BASED ON THE PRIMARY CLINICAL RECORDS. [employer] provides no warranty or guarantee of the accuracy or completeness of information in this document.
[2024-10-05 10:38] LABS: Hematocrit 41.1 % (40-54); Hemoglobin 14.2 g/dL (13.0-16.5); Immature Granulocytes Count 0.030 X10^3/uL (0.0-0.0); Mean Corp Hgb Conc 34.5 g/dL (32-36); Mean Corpuscular Volume 85.8 fL (80-94); Mean Platelet Vol. 9.1 fl (6.2-12.0); NRBC Flagged by Analyzer 0 % (0-5); Platelet Count 202 K/mm3 (150-450); RBC Distribution Width CV 13.1 % (11.6-14.6); RBC Distribution Width SD 40.6 fl (35.1-43.9); Red Blood Count 4.79 M/mm3 (4.6-6.2); White Blood Count 6.1 K/mm3 (4.4-11.0)
[2024-10-05 11:24] LABS: Creatinine, Urine (random) 237.00 mg/dL (39.00-259.00); Microalbumin,Random Urine 32.4 mg/L (<20 mg/L)
[2024-10-05 12:02] LABS: AST(SGOT) 26 U/L (<=37); Alanine Aminotransfer ALT/SGPT 34 U/L (<=46); Albumin, Serum 4.2 g/dL (3.4-4.8); Alkaline Phosphatase 81 U/L (40-129); Anion Gap 11 (5-15); BUN 13 mg/dL (4-19); BUN/Creat Ratio 14.6 RATIO (10-20); Calcium,Total 9.1 mg/dL (7.6-11.0); Carbon Dioxide 22.5 mmol/L (21.0-32.0); Chloride 104 mmol/L (98-108); Cholesterol 120 mg/dL (<=200); Globulin 3.1 g/dL (2.2-4.2); Glucose 138 mg/dL (70-99); Low Density Lipoprotein Calc. 54 mg/dL; PSA,Total- Diagnostic 0.07 ng/mL (0.00-4.00); Potassium 4.2 mmol/L (3.3-5.1); Triglycerides 111 mg/dL; Very Low Density Lipoprotein 22 mg/dL (5-40); cholesterol:hdl ratio screen 2.73
== END | disposition home or self-care (01) ==
LOC: MTLAB 07:07
PROVIDERS: PCP Family Medicine; Referring Provider Family Medicine; Visit Provider Family Medicine
DX: C61 Malignant neoplasm of prostate (principal)
CPT/HCPCS: 36415; 80053; 80061; 82043; 82570; 84153; 85025

== ENCOUNTER → 2025-02-01 | Outpatient (CLI) | payer OTHER, SELFPAY ==
--- OUTSIDE RECORDS SUMMARY | 2025-02-01 06:39 | XMS RPT_ITS | CCD ---
Author Organization 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 Justice Root Primary Care Provider Siena Sotelo Attending Provider Unavailable Dr. Justice Root Referring Provider Dr. Noé Pickering Attending Provider [phone] You Alva Attending Provider [phone] Dr. Alan Johnston Referring Provider [phone] Dr. Justice Root Primary Care Provider Dr. You Alva Attending Provider Dr. You Alva Referring Provider [phone] Dr. Justice Root Referring Provider Ivett DREW, Dr. Marquis Primary Care Provider Dr. Justice Root DO Attending Provider Ivett DREW, Dr. Marquis Referring Provider Breezy BAILEY, Dr. Alan Kendall Other Provider Justice Root Attending Unavailable Justice Root Referring Unavailable Justice Root Primary Care Unavailable Alan Johnston Consulting Unavailable Justice Root Attending Unavailable Justice Root Referring Unavailable Justice Root Primary Care Unavailable You Alva Attending Unavailable Alan Johnston Referring Unavailable Justice Root Primary Care Unavailable You Alva Attending Unavailable Justice Root Referring Unavailable Justice Root Primary Care Unavailable Allergies Allergy Classification Reported Allergen(s) Allergy Type Date of Onset Reaction(s) Facility (3 sources) Angiotensin-con verting enzyme inhibitor agent Propensity to adverse reactions 9 Cough [facility] (3 sources) Iodine Drug Allergy 9 Hives [facility] (11 sources) Iodinated Contrast Media; Translations: [Iodinated Contrast Media] Allergy to substance 2 Hives and Vomiting [facility] Medications Current Medications Medication Drug Class(es) Dates Sig (Normalized) Sig (Original) atorvastatin 40 mg oral tablet (20 sources) HMG-CoA Reductase Inhibitor Start: 06-09-2021 End: 10-22-2023 take 1 tablet by mouth once daily Atorvastatin 40 mg tablet Active 40 mg PO DAILY 90 3 October 22, 2023 2:31pm Start: 01-13-2015 End: 06-09-2021 take 1 tablet by mouth at bedtime Atorvastatin 20 MG tablet Discontinued 20 mg PO AT BEDTIME January 13, 2015 12:00am June 09, 2021 3:39pm Comment on above: Take 40 mg by mouth once daily. calcium carbonate 1500 mg / cholecalciferol 0.01 mg oral capsule (8 sources) Vitamin D Start: 07-24-2021 take 1 capsule by mouth once daily Calcium Carbonate-Vitami n D3 Active 1 CAP PO DAILY July 24, 2021 9:07am Start: 07-24-2021 End: 08-20-2023 Calcium Carbonate-Vitamin D3 600 mg-10 mcg (400 unit) capsule Discontinued 1 NMA PO TWICE A DAY July 24, 2021 12:00am August 20, 2023 9:13am Start: 07-24-2021 take 1 capsule by [facility] twice daily Calcium Carbonate-Vitamin D3 Active 1 CAP PO TWICE A DAY July 23, 2021 11:00pm losartan potassium 100 mg oral tablet (20 sources) Angiotensin 2 Receptor Lakisha Start: 06-09-2021 take 1 tablet by mouth once daily Losartan 100 mg tablet Active 100 mg PO DAILY June 09, 2021 12:00am Start: 01-13-2015 End: 06-09-2021 take 1 tablet by mouth once daily Losartan 50 MG tablet Discontinued 50 mg PO DAILY January 13, 2015 12:00am June 09, 2021 3:39pm Comment on above: TAKE 1 TABLET ONCE D AILY polyethylene glycol 3350 497885 mg / potassium chloride 2970 mg / sodium bicarbonate 6740 mg / sodium chloride 5860 mg / sodium sulfate 89434 mg powder for oral solution (1 source) Osmotic Laxative Start: 2 End: 2 peg 3350-Electrolytes (GOLYTELY) 236-22.74-6.74 -5.86 gram suspension Take 4,000 mL by mouth one time only for 1 dose. 1 Each 0 06/19/2021 06/19/2021 Active Comment on above: Take 4,000 mL by emiliano one time only for 1 dose. RABEprazole sodium 20 mg delayed release oral tablet (13 sources) Proton Pump Inhibitor Start: 7 take 1 tablet by mouth once daily Rabeprazole (Aciphex) 20 mg tablet,delayed release (DR/EC) Active 20 mg PO DAILY June 09, 2021 12:00am Comment on above: TAKE 1 TABLET ONCE D AILY 1 mg dose 1.5 ml semaglutide 1.34 mg/ml pen injector (1 source) Start: 3 Semaglutide (Ozempic) 1 mg/dose (2 mg/1.5 mL) pen injector Active 1 MG SC EVERY WEEK October 07, 2022 11:00pm Semaglutide (Ozempic) 1 mg/dose (2 mg/1.5 mL) pen injector (1 source) Start: 3 Semaglutide (Ozempic) 1 mg/dose (2 mg/1.5 mL) pen injector Active 1 mg SC EVERY WEEK October 08, 2022 12:00am Completed/Discontinued Medications Medication Drug Class(es) Dates Sig [...] on above: Take one(1) tablet d aily. ciprofloxacin 500 mg oral tablet (8 sources) Quinolone Antimicrobial Start: 08-16-2021 End: 08-20-2023 take 1 tablet by mouth twice daily Ciprofloxacin Hcl (Cipro) 500 mg tablet Discontinued 500 mg PO TWICE A DAY 10 0 August 16, 2021 12:00am August 20, 2023 9:13am Comment on above: Take 500 mg by mouth twice daily. metFORMIN hydrochloride 500 mg oral tablet (20 sources) Biguanide Start: 06-09-2021 take 1000 mg by mouth twice daily Metformin Active 1000 MG PO TWICE A DAY June 08, 2021 11:00pm Start: 11-16-2016 End: 08-20-2023 take 2 tablets by mouth twice daily Metformin 500 mg tablet Discontinued 1000 mg PO TWICE A DAY June 09, 2021 12:00am August 20, 2023 9:13am Start: 01-13-2015 End: 06-09-2021 take 1 tablet by mouth twice daily at mealtime Metformin 1,000 MG tablet Discontinued 1000 mg PO TWICE DAILY WITH MEALS January 13, 2015 12:00am March 25th, 2022 3:39pm Comment on above: TAKE 2 TABLETS TWICE A DAY WITH MEALS ticagrelor 90 mg oral tablet (1 source) End: 06-14-19 take 1 tablet by mouth twice daily ticagrelor (BRILINTA) 90 mg tablet Take 90 mg by mouth twice daily. 0 06/13/2021 Discontinued (Course of therapy completed) Comment on above: Take 90 mg by mouth twice daily. triamcinolone acetonide 0.055 mg/actuat metered dose nasal spray (10 sources) Corticosteroid Start: 06-10-19 End: 08-20-19 Triamcinolone Acetonide (Nasacort Allergy) 55 mcg aerosol,spray Discontinued 2 NMA INTRANASAL DAILY June 09, 2021 12:00am August 20, 2023 9:13am administer into each nostril Start: 06-09-2021 take 1 spray(s) nasa l route once daily Triamcinolone Acetonide (Nasacort Allergy) 55 mcg aerosol,spray Active 2 SPRAY INTRANASAL DAILY June 08, 2021 11:00pm administer into each nostril Problems Active Problems Problem Classification Problem Date Documented Date Episodic/Chronic Cancer of prostate (17 sources) Primary malignant neoplasm of prostate; Translations: [Malignant neoplasm of prostate] Onset: 04-14-2024 Chronic Coronary atherosclerosis and other heart disease (14 sources) Coronary atherosclerosis; Translations: [Atherosclerotic heart disease of [place] coronary artery without angina pectoris] Onset: 10-09-2016 10-09-2016 Chronic Diabetes mellitus without complication (13 sources) Diabetes mellitus; Translations: [Type 2 diabetes mellitus without complications] 12-27-2014 Chronic Digestive congenital anomalies (1 source) Tortuous colon; 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 Disorders of lipid metabolism (18 sources) Hyperlipidemia; Translations: [Hyperlipidemia, unspecified] 12-27-2014 Chronic [...] Episodic Other nutritional; endocrine; and metabolic disorders (10 sources) Obesity; Translations: [Obesity, unspecified] 06-13-2021 Chronic Other screening for suspected conditions (not mental disorders or infectious disease) (1 source) Patient encounter status; Translations: [Encounter for screening for malignant neoplasm of colon] Episodic Residual codes; unclassified (13 sources) Obstructive sleep apnea syndrome; Translations: [Obstructive sleep apnea (adult) (pediatric)] 12-27-2014 Chronic Comment on above: wears CPAP Past or Other Problems Problem Classification Problem [...] Test Name Value Interpretation Reference Range Facility Absolute lymphocyte countOrd ered By: Justice Root on 10-05-2024 Lymphocytes Auto (Unsp spec) [#/Vol] 1.16 10*3/uL 0.83-4.51 [facility] Absolute neutrophil countOrd ered By: Justice Root on 10-05-2024 Neutrophils (Bld) [#/Vol] 4.0 10*3/uL 2.0-7.7 [facility] Anion gap in Serum or Plasma Ordered By: Justice Root on 10-05-2024 Anion gap [Moles/Vol] 11 mmol/L 5-15 [facility] Automated lymphocyte count a s percentage of total leukocytesOrdered By: Justice Root on 10-05-2024 Lymphocytes/100 WBC Auto (Unsp spec) 18.9 % Low 19-41 [facility] BUN/creatinine ratioOrdered By: Justice Root on 10-05-2024 Urea nitrogen/Creatinine [Mass ratio] 14.6 mg/mg 10-20 [facility] Basophil percentageOrdered B y: Justice Root on 10-05-2024 Basophils/100 WBC (Bld) 0.3 % 0-1 [facility] Bilirubin, totalOrdered By: Justice Root on 10-05-2024 Bilirubin [Mass/Vol] 0.39 mg/dL 0.00-1.30 [facility] CBC W/Diff, Automatedon 07-2 -2024 Absolute Lymph 1.16 X10 3/uL Normal 0.83-4.51 [facility] Comment on above: Performed By: #### L 100.0100, L500.4050, L500.4100, L502.0250, L501.9940 #### [facility] [address] [place], [address] Absolute Neut 4.0 X10 3/uL Normal 2.0-7.7 [facility] Comment on above: Performed By: #### L 100.0100, L500.4050, L500.4100, L502.0250, L501.9940 #### [facility] [address] [place], [address] Basophils/100 WBC (Bld) 0.3 % Normal 0-1 [facility] Comment on above: Performed By: #### L 100.0100, L500.4050, L500.4100, L502.0250, L501.9940 #### [facility] [address] [place], [address] Eosinophils/100 WBC (Bld) 3.9 % Normal 0-5 [facility] Comment on above: Performed By: #### L 100.0100, L500.4050, L500.4100, L502.0250, L501.9940 #### [facility] [address] [place], [address] Erythrocyte distribution width (RBC) [Ratio] 13.1 % Normal 11.6-14.6 [facility] Comment on above: Performed By: #### L 100.0100, L500.4050, L500.4100, L502.0250, L501.9940 #### [facility] [address] [place], [address] Hematocrit (Bld) [Volume fraction] 41.1 % Normal 40-54 [facility] Comment on above: Performed By: #### L 100.0100, L500.4050, L500.4100, L502.0250, L501.9940 #### [facility] [address] [place], [address] Hemoglobin (Bld) [Mass/Vol] 14.2 g/dL Normal 13.0-16.5 [facility] Comment on above: Performed By: #### L 100.0100, L500.4050, L500.4100, L502.0250, L501.9940 #### [facility] [address] [place], [address] IG% 0.500 Normal 0.0-0.9 [facility] Comment on above: Result Comment: IG% - Immature Granulocytes (promyelocytes, myelocytes and metamyelocytes) > 1% indicates that a LEFT SHIFT is Present. Performed By: #### L 100.0100, L500.4050, L500.4100, L502.0250, L501.9940 #### [facility] [address] [place], [address] Lymphocytes/100 WBC (Bld) 18.9 % Low 19-41 [facility] Comment on above: Performed By: #### L 100.0100, L500.4050, L500.4100, L502.0250, L501.9940 #### [facility] [address] [place], [address] MCH (RBC) [Entitic mass] 29.6 pg Normal 27.0-32.0 [facility] Comment on above: Performed By: #### L 100.0100, L500.4050, L500.4100, L502.0250, L501.9940 #### [facility] [address] [place], [address] MCHC (RBC) [Mass/Vol] 34.5 g/dL Normal 32-36 [facility] Comment on above: Performed By: #### L 100.0100, L500.4050, L500.4100, L502.0250, L501.9940 #### [facility] [address] [place], [address] MCV (RBC) [Entitic vol] 85.8 fL Normal 80-94 [facility] Comment on above: Performed By: #### L 100.0100, L500.4050, L500.4100, L502.0250, L501.9940 #### [facility] [address] [place], [address] Monocytes/100 WBC (Bld) 10.7 % High 0-10 [facility] Comment on above: Performed By: #### L 100.0100, L500.4050, L500.4100, L502.0250, L501.9940 #### [facility] [address] [place], [address] Neutrophils/100 WBC (Bld) 65.7 % Normal 47-70 [facility] Comment on above: Performed By: #### L 100.0100, L500.4050, L500.4100, L502.0250, L501.9940 #### [facility] [address] [place], [address] Nucleated RBC (Bld) [#/Vol] 0 10*3/uL Normal 0-5 [facility] Comment on above: Performed By: #### L 100.0100, L500.4050, L500.4100, L502.0250, L501.9940 #### [facility] [address] [place], [address] Platelet mean volume (Bld) [Entitic vol] 9.1 fL Normal 6.2-12.0 [facility] Comment on above: Performed By: #### L 100.0100, L500.4050, L500.4100, L502.0250, L501.9940 #### [facility] [address] [place], [address] Platelets (Bld) [#/Vol] 202 10*3/uL Normal 150-450 [facility] Comment on above: Performed By: #### L 100.0100, L500.4050, L500.4100, L502.0250, L501.9940 #### [facility] [address] [place], [address] RBC (Bld) [#/Vol] 4.79 10*6/uL Normal 4.6-6.2 [facility] Comment on above: Performed By: #### L 100.0100, L500.4050, L500.4100, L502.0250, L501.9940 #### [facility] [address] [place], [address] RDW SD 40.6 fl Normal 35.1-43.9 [facility] Comment on above: Performed By: #### L 100.0100, L500.4050, L500.4100, L502.0250, L501.9940 #### [facility] [address] [place], [address] WBC (Bld) [#/Vol] 6.1 10*3/uL Normal 4.4-11.0 [facility] Comment on above: Performed By: #### L 100.0100, L500.4050, L500.4100, L502.0250, L501.9940 #### [facility] [address] [place], [address] Calculated very low density lipoprotein (VLDL) cholesterol measurementOrdered By: Justice Root on 10-05-2024 Calculated very low density lipoprotein (VLDL) cholesterol measurement 22 mg/dL 5-40 [facility] Carbon dioxide, total [Moles /volume] in Central venous bloodOrdered By: Justice Root on 10-05-2024 CO2 [Moles/Vol] 22.5 mmol/L 21.0-32.0 [facility] Chloride assayOrdered By: Jayce Root on 10-05-2024 Chloride [Moles/Vol] 104 mmol/L 98-108 [facility] Comprehensive Metabolic Prof ilon 10-05-2024 Albumin [Mass/Vol] 4.2 g/dL Normal 3.4-4.8 [facility] Comment on above: Order Comment: DR. Sebastian LONGORIA GETS RESULTS FOR PSA DR. ROOT GETS RESULTS FOR ALL OTHER LABS Performed By: #### L 100.0100, L500.4050, L500.4100, L502.0250, L501.9940 #### [facility] [address] [place], [address] Albumin/Globulin [Mass ratio] 1.3 {ratio} Normal 0.9-2.4 [facility] Comment on above: Order Comment: DR. Sebastian LONGORIA GETS RESULTS FOR PSA DR. ROOT GETS RESULTS FOR ALL OTHER LABS Performed By: #### L 100.0100, L500.4050, L500.4100, L502.0250, L501.9940 #### [facility] [address] [place], [address] ALK PHOS 81 U/L Normal 40-129 [facility] Comment on above: Order Comment: DR. Sebastian LONGORIA GETS RESULTS FOR PSA DR. ROOT GETS RESULTS FOR ALL OTHER LABS Performed By: #### L 100.0100, L500.4050, L500.4100, L502.0250, L501.9940 #### [facility] [address] [place], [address] ALT [Catalytic activity/Vol] 34 U/L Normal <=46 [facility] Comment on above: Order Comment: DR. Sebastian LONGORIA GETS RESULTS FOR PSA DR. ROOT GETS RESULTS FOR ALL OTHER LABS Performed By: #### L 100.0100, L500.4050, L500.4100, L502.0250, L501.9940 #### [facility] [address] [place], [address] AST [Catalytic activity/Vol] 26 U/L Normal <=37 [facility] Comment on above: Order Comment: DR. Sebastian LONGORIA GETS RESULTS FOR PSA DR. ROOT GETS RESULTS FOR ALL OTHER LABS Performed By: #### L 100.0100, L500.4050, L500.4100, L502.0250, L501.9940 #### [facility] [address] [place], [address] Bilirubin [Mass/Vol] 0.39 mg/dL Normal 0.00-1.30 [facility] Comment on above: Order Comment: DR. Sebastian LONGORIA GETS RESULTS FOR PSA DR. ROOT GETS RESULTS FOR ALL OTHER LABS Performed By: #### L 100.0100, L500.4050, L500.4100, L502.0250, L501.9940 #### [facility] [address] [place], [address] BUN/CRE 14.6 RATIO Normal 10-20 [facility] Comment on above: Order Comment: DR. Sebastian LONGORIA GETS RESULTS FOR PSA DR. ROOT GETS RESULTS FOR ALL OTHER LABS Performed By: #### L 100.0100, L500.4050, L500.4100, L502.0250, L501.9940 #### [facility] [address] [place], [address] Calcium [Mass/Vol] 9.1 mg/dL Normal 7.6-11.0 [facility] Comment on above: Order Comment: DR. Sebastian LONGORIA GETS RESULTS FOR PSA DR. ROOT GETS RESULTS FOR ALL OTHER LABS Performed By: #### L 100.0100, L500.4050, L500.4100, L502.0250, L501.9940 #### [facility] [address] [place], [address] Chloride [Moles/Vol] 104 mmol/L Normal 98-108 [facility] Comment on above: Order Comment: DR. Sebastian LONGORIA GETS RESULTS FOR PSA DR. ROOT GETS RESULTS FOR ALL OTHER LABS Performed By: #### L 100.0100, L500.4050, L500.4100, L502.0250, L501.9940 #### [facility] [address] [place], [address] CO2 [Moles/Vol] 22.5 mmol/L Normal 21.0-32.0 [facility] Comment on above: Order Comment: DR. Sebastian LONGORIA GETS RESULTS FOR PSA DR. ROOT GETS RESULTS FOR ALL OTHER LABS Performed By: #### L 100.0100, L500.4050, L500.4100, L502.0250, L501.9940 #### [facility] [address] [place], [place], [address] (665) Creatinine [Mass/Vol] 0.86 mg/dL Normal 0.70-1.20 [facility] Comment on above: Order Comment: DR. Sebastian LONGORIA GETS RESULTS FOR PSA DR. ROOT GETS RESULTS FOR ALL OTHER LABS Performed By: #### L 100.0100, L500.4050, L500.4100, L502.0250, L501.9940 #### [facility] [address] [place], [address] GAP 11 Normal 5-15 [facility] Comment on above: Order Comment: DR. Sebastian LONGORIA GETS RESULTS FOR PSA DR. ROOT GETS RESULTS FOR ALL OTHER LABS Performed By: #### L 100.0100, L500.4050, L500.4100, L502.0250, L501.9940 #### [facility] [address] [place], [address] GFR/1.73 sq M.predicted among non-blacks MDRD (S/P/Bld) [Vol rate/Area] 93 mL/min/{1.73_m2} Normal >60 [facility] Comment on above: Order Comment: DR. Sebastian LONGORIA GETS RESULTS FOR PSA DR. ROOT GETS RESULTS FOR ALL OTHER LABS Result Comment: mL/m in/1.73m2 CKD-EPI Creatinine Equation (2020) Performed By: #### L 100.0100, L500.4050, L500.4100, L502.0250, L501.9940 #### [facility] [address] [place], [address] Globulin (S) [Mass/Vol] 3.1 g/dL Normal 2.2-4.2 [facility] Comment on above: Order Comment: DR. Sebastian LONGORIA GETS RESULTS FOR PSA DR. ROOT GETS RESULTS FOR ALL OTHER LABS Performed By: #### L 100.0100, L500.4050, L500.4100, L502.0250, L501.9940 #### [facility] [address] [place], [address] Glucose [Mass/Vol] 138 mg/dL High 70-99 [facility] Comment on above: Order Comment: DR. Sebastian LONGORIA GETS RESULTS FOR PSA DR. ROOT GETS RESULTS FOR ALL OTHER LABS Performed By: #### L 100.0100, L500.4050, L500.4100, L502.0250, L501.9940 #### [facility] [address] [place], [address] Potassium [Moles/Vol] 4.2 mmol/L Normal 3.3-5.1 [facility] Comment on above: Order Comment: DR. Sebastian LONGORIA GETS RESULTS FOR PSA DR. ROOT GETS RESULTS FOR ALL OTHER LABS Performed By: #### L 100.0100, L500.4050, L500.4100, L502.0250, L501.9940 #### [facility] [address] [place], [address] Sodium [Moles/Vol] 137 mmol/L Normal 133-145 [facility] Comment on above: Order Comment: DR. Sebastian LONGORIA GETS RESULTS FOR PSA DR. ROOT GETS RESULTS FOR ALL OTHER LABS Performed By: #### L 100.0100, L500.4050, L500.4100, L502.0250, L501.9940 #### [facility] [address] [place], [address] T PROT 7.3 g/dL Normal 5.9-8.4 [facility] Comment on above: Order Comment: DR. Sebastian LONGORIA GETS RESULTS FOR PSA DR. ROOT GETS RESULTS FOR ALL OTHER LABS Performed By: #### L 100.0100, L500.4050, L500.4100, L502.0250, L501.9940 #### [facility] [address] [place], [address] Urea nitrogen [Mass/Vol] 13 mg/dL Normal 4-19 [facility] Comment on above: Order Comment: DR. Sebastian LONGORIA GETS RESULTS FOR PSA DR. ROOT GETS RESULTS FOR ALL OTHER LABS Performed By: #### L 100.0100, L500.4050, L500.4100, L502.0250, L501.9940 #### [facility] [address] [place], [address] Eosinophil percentageOrdered By: Justice Root on 10-05-2024 Eosinophils/100 WBC (Bld) 3.9 % 0-5 [facility] Erythrocyte distribution wid th ratioOrdered By: Justice Root on 10-05-2024 Erythrocyte distribution width (RBC) [Ratio] 13.1 % 11.6-14.6 [facility] Erythrocyte distribution wid th standard deviationOrdered By: Justice Root on 10-05-2024 Erythrocyte distribution width (RBC) [Ratio] 40.6 fl 35.1-43.9 [facility] Glomerular filtration rate ( GFR) estimation/1.73 sq m using serum, plasma, or whole bOrdered By: Justice Root on 10-05-2024 GFR/1.73 sq M.predicted among non-blacks MDRD (S/P/Bld) [Vol rate/Area] 93 mL/min/{1.73_m2} >60 [facility] Comment on above: mL/min/1.73m2 CKD-EP I Creatinine Equation (2020) Hematocrit Auto (Bld) [Volum e fraction]Ordered By: Justice Root on 10-05-2024 Hematocrit (Bld) [Volume fraction] 41.1 % 40-54 [facility] Hemoglobin measurementOrdere d By: Justice Root on 10-05-2024 Hemoglobin (Bld) [Mass/Vol] 14.2 g/dL 13.0-16.5 [facility] Immature granulocytes/100 WB C Auto (Bld)Ordered By: Justice Root on 10-05-2024 Immature granulocytes/100 WBC (Bld) 0.500 % 0.0-0.9 [facility] Comment on above: IG% - Immature Granu locytes (promyelocytes, myelocytes and metamyelocytes) > 1% indicates that a LEFT SHIFT is Present. LDL calc ser/plasOrdered By: Justice Root on 10-05-2024 Cholesterol in LDL [Mass/Vol] 54 mg/dL [facility] Comment on above: Mqholwpjmr=465-945 m g/dL & Higher Zlfr=210 mg/dL or greater Laboratory - Chemistry and C hemistry - challengeOrdered By: Justice Root on 10-05-2024 AST [Catalytic activity/Vol] 26 U/L <38 [facility] Lipid Profileon 10-05-2024 CHOL:HDL 2.73 Normal [facility] Comment on above: Order Comment: DR. Sebastian LONGORIA GETS RESULTS FOR PSA DR. ROOT GETS RESULTS FOR ALL OTHER LABS Performed By: #### L 100.0100, L500.4050, L500.4100, L502.0250, L501.9940 #### [facility] [address] [place], [address] Cholesterol [Mass/Vol] 120 mg/dL Normal <=200 [facility] Comment on above: Order Comment: DR. Sebastian LONGORIA GETS RESULTS FOR PSA DR. ROOT GETS RESULTS FOR ALL OTHER LABS Result Comment: Chol esterol level, Desirable <200 mg/dL Borderline high cholesterol 200-239 mg/dL High cholesterol >=240 mg/dL Recommendations of the NCEP Adult Treatment Panel for the following risk-cutoff thresholds for the [place] population. Performed By: #### L 100.0100, L500.4050, L500.4100, L502.0250, L501.9940 #### [facility] [address] [place], [address] Cholesterol in HDL [Mass/Vol] 44 mg/dL Normal [facility] Comment on above: Order Comment: DR. Sebastian LONGORIA GETS RESULTS FOR PSA DR. ROOT GETS RESULTS FOR ALL OTHER LABS Result Comment: [place] Cholesterol Education Program (NCEP) guidelines: <40 mg/dL: Low HDL-cholesterol (major risk factor for CHD) >= 60 mg/dL: High HDL-cholesterol (negative risk factor for CHD) HDL-cholesterol is affected by a number of factors, e.g. smoking, exercise, hormones, sex and age. Performed By: #### L 100.0100, L500.4050, L500.4100, L502.0250, L501.9940 #### [facility] [address] [place], [address] Cholesterol in LDL [Mass/Vol] 54 mg/dL Normal [facility] Comment on above: Order Comment: DR. Sebastian LONGORIA GETS RESULTS FOR PSA DR. ROOT GETS RESULTS FOR ALL OTHER LABS Result Comment: Bord tsrlpb=900-037 mg/dL Higher Mjig=204 mg/dL or greater Performed By: #### L 100.0100, L500.4050, L500.4100, L502.0250, L501.9940 #### [facility] [address] [place], [address] Cholesterol in VLDL [Mass/Vol] 22 mg/dL Normal 5-40 [facility] Comment on above: Order Comment: DR. Sebastian LONGORIA GETS RESULTS FOR PSA DR. ROOT GETS RESULTS FOR ALL OTHER LABS Performed By: #### L 100.0100, L500.4050, L500.4100, L502.0250, L501.9940 #### [facility] [address] [place], [address] Triglyceride [Mass/Vol] 111 mg/dL Normal [facility] Comment on above: Order Comment: DR. Sebastian LONGORIA GETS RESULTS FOR PSA DR. ROOT GETS RESULTS FOR ALL OTHER LABS Result Comment: The drugs N-Acetylcysteine and Metamizole may falsely depress this assay. Normal range: <150 mg/dL Borderline High: 150-199 mg/dL High: 200-499 mg/dL Very High: >500 mg/dL Performed By: #### L 100.0100, L500.4050, L500.4100, L502.0250, L501.9940 #### [facility] [address] [place], [address] MCV (mean corpuscular volume ) determinationOrdered By: Justice Root on 10-05-2024 MCV (RBC) [Entitic vol] 85.8 fL 80-94 [facility] Mean corpuscular hemoglobin (MCH) determinationOrdered By: Justice Root on 10-05-2024 MCH (RBC) [Entitic mass] 29.6 pg 27.0-32.0 [facility] Mean corpuscular hemoglobin concentration (MCHC) determinationOrdered By: Justice Root on 10-05-2024 MCHC (RBC) [Mass/Vol] 34.5 g/dL 32-36 [facility] Mean platelet volume determi nationOrdered By: Justice Root on 10-05-2024 Platelet mean volume (Bld) [Entitic vol] 9.1 fL 6.2-12.0 [facility] Microalb:Creat Ratio,Random URon 10-05-2024 Creatinine [Mass/Vol] 237.00 mg/dL Normal 39.00- 259.0 0 [facility] Comment on above: Performed By: #### L 100.0100, L500.4050, L500.4100, L502.0250, L501.9940 #### [facility] [address] [place], [address] MALB:CREAT 13.7 mg/g CRE Normal <30 mg/g CRE [facility] Comment on above: Performed By: #### L 100.0100, L500.4050, L500.4100, L502.0250, L501.9940 #### [facility] [address] [place], [address] MICROALBUMIN,UR 32.4 mg/L Normal <20 mg/L [facility] Comment on above: Performed By: #### L 100.0100, L500.4050, L500.4100, L502.0250, L501.9940 #### [facility] [address] [place], [address] Monocyte percentageOrdered B y: Justice Root on 10-05-2024 Monocytes/100 WBC (Bld) 10.7 % High 0-10 [facility] Neutrophil percentageOrdered By: Justice Root on 10-05-2024 Neutrophils/100 WBC (Bld) 65.7 % 47-70 [facility] Nucleated red blood cell per centageOrdered By: Justice Root on 10-05-2024 Nucleated RBC/100 WBC (Bld) [Ratio] 0 % 0-5 [facility] PSA,Total- Diagnosticon 07- PSA, DIAGNOSTIC 0.07 ng/mL Normal 0.00-4.00 [facility] Comment on above: Order Comment: DR. Sebastian LONGORIA GETS RESULTS FOR PSA DR. ROOT GETS RESULTS FOR ALL OTHER LABS Result Comment: This test was performed using the [employer] tPSA method. Measured values of a patient??sample can vary depending on the testing procedure used. PSA values determined on patient samples by different testing procedures cannot be used interchangeably. If there is a change in PSA assays while monitoring therapy, sequential testing should be performed to confirm baseline values. Performed By: #### L 100.0100, L500.4050, L500.4100, L502.0250, L501.9940 #### [facility] [address] [place], [address] Platelet countOrdered By: Jayce Root on 10-05-2024 Platelets (Bld) [#/Vol] 202 10*3/uL 150-450 [facility] Potassium measurement (mass/ volume)Ordered By: Justice Root on 10-05-2024 Potassium (Unsp spec) [Mass/Vol] 4.2 mmol/L 3.3-5.1 [facility] RBC Auto (Bld) [#/Vol]Ordere d By: Justice Root on 10-05-2024 RBC (Bld) [#/Vol] 4.79 10*6/uL 4.6-6.2 [facility] Random urine creatinine alan urement (mass/volume)Ordered By: Justice Root on 10-05-2024 Creatinine Unsp time (U) [Mass/Vol] 237.00 mg/dL 39.00-259.0 0 [facility] Screening total cholesterol/ high density lipoprotein (HDL) cholesterol ratioOrdered By: Justice Root on 10-05-2024 Cholesterol.total/Chol esterol in HDL [Mass ratio] 2.73 {ratio} [facility] Serum creatinine measurement (mass/volume)Ordered By: Justice Root on 10-05-2024 Creatinine [Mass/Vol] 0.86 mg/dL 0.70-1.20 [facility] Serum globulin measurementOr dered By: Justice Root on 10-05-2024 Globulin (S) [Mass/Vol] 3.1 g/dL 2.2-4.2 [facility] Serum glucose measurement (m ass/volume)Ordered By: Justice Root on 10-05-2024 Glucose [Mass/Vol] 138 mg/dL High 70-99 [facility] Serum or plasma alanine ignacio otransferase (ALT) measurementOrdered By: Justice Root on 10-05-2024 ALT [Catalytic activity/Vol] 34 U/L <47 [facility] Serum or plasma albumin alan urement (mass/volume)Ordered By: Justice Root on 10-05-2024 Albumin [Mass/Vol] 4.2 g/dL 3.4-4.8 [facility] Serum or plasma albumin/glob ulin mass ratioOrdered By: Justice Root on 10-05-2024 Albumin/Globulin [Mass ratio] 1.3 {ratio} 0.9-2.4 [facility] Serum or plasma alkaline gus sphatase measurementOrdered By: Justice Root on 10-05-2024 ALP [Catalytic activity/Vol] 81 U/L 40-129 [facility] Serum or plasma calcium alan urement (mass/volume)Ordered By: Justice Root on 10-05-2024 Calcium [Mass/Vol] 9.1 mg/dL 7.6-11.0 [facility] Serum or plasma cholesterol in HDL measurement (mass/volume)Ordered By: Justice Root on 10-05-2024 Cholesterol in HDL [Mass/Vol] 44 mg/dL >40 [facility] Comment on above: National Cholesterol Education Program (NCEP) guidelines:<40 mg/dL: Low HDL-cholesterol (major risk factor for CHD)>= 60 mg/dL: High HDL-cholesterol (negative risk factor for CHD)HDL-cholesterol is affected by a number of factors, e.g. smoking, exercise, hormones, sex and age. Serum or plasma cholesterol measurement (mass/volume)Ordered By: Justice Root on 10-05-2024 Cholesterol [Mass/Vol] 120 mg/dL <201 [facility] Comment on above: Cholesterol level, D esirable <200 mg/dLBorderline high cholesterol 200-239 mg/dLHigh cholesterol >=240 mg/dLRecommendations of the NCEP Adult Treatment Panel for the following risk-cutoff thresholds for the [place] population. Serum or plasma urea nitroge n measurement (mass/volume)Ordered By: Justice Root on 10-05-2024 Urea nitrogen [Mass/Vol] 13 mg/dL 4-19 [facility] Sodium levelOrdered By: Justice Root on 10-05-2024 Sodium [Moles/Vol] 137 mmol/L 133-145 [facility] Total proteinOrdered By: Eula Root on 10-05-2024 Protein [Mass/Vol] 7.3 g/dL 5.9-8.4 [facility] Triglycerides measurementOrd ered By: Justice Root on 10-05-2024 Triglyceride [Mass/Vol] 111 mg/dL <199 [facility] Comment on above: The drugs N-Acetylcy steine and Metamizole may falsely depress this assay. Normal range: <150 mg/dLBorderline High: 150-199 mg/dLHigh: 200-499 mg/dLVery High: >500 mg/dL Urine albumin measurement [facility] detection limit of 20 mg/L or less (mass/volume)Ordered By: Justice Root on 10-05-2024 Albumin DL <= 20 mg/L (U) [Mass/Vol] 32.4 mg/L <20 mg/L [facility] White blood cell (WBC) count Ordered By: Justice Root on 10-05-2024 WBC (Bld) [#/Vol] 6.1 10*3/uL 4.4-11.0 [facility] PSA,Total- Diagnosticon 03-19 PSA, DIAGNOSTIC 0.08 ng/mL Normal 0.0-4.0 [facility] Comment on above: Result Comment: This test was performed using the TPSA assay method for the [employer] chemistry system. Values obtained with different assay methods cannot be used interchangably. When changing PSA assays in the course of monitoring a patient, additional sequential testing should be carried out to confirm baseline values. Performed By: #### L 501.9940 #### [facility] [address] [place], [address] Radiation Oncology Visiton 0 04-14-2024 Radiation Oncology Visit [facility] [address] [place] [address] OFFICE VISIT Date of Service: 04/14/24 1513 MR#: [id number] Acct: [id number] Name: PRANAV ALICEA Rep #: [id number] : 1955 From: You Alva DO Age/Sex: 68/M Location[place] 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 Normal [facility] No Panel InformationOrdered By: Alan Johnston on 04-01-2023 Prostate Specific Antigen Total 0.10 ng/mL 0.0-4.0 [facility] Comment on above: This test was perfor med using the TPSA assay method for the[employer] chemistry system. Values obtained with differentassay methods cannot be used interchangably.When changing PSA assays in the course of monitoring apatient, additional sequential testing should be carriedout to confirm baseline values. Basophil percentageOrdered B y: Justice Root on 09-28-2022 Cholesterol [Mass/Vol] 80 mg/dL <200 [facility] Comment on above: <200 mg/dL Desirable 200-240 mg/dL Borderline >240 mg/dL High Risk Triglyceride [Mass/Vol] 150 mg/dL <199 [facility] Comment on above: The drugs N-Acetylcy steine and Metamizole may falsely depress this assay.Serum Triglycerides Reference Interval Normal <150 mg/dL Borderline high 150 - 199 mg/dL High 200 - 499 mg/dL Very High > or = 500 mg/dL No Panel InformationOrdered By: Justice Root on 09-28-2022 Prostate Specific Antigen Total 0.17 ng/mL 0.0-4.0 [facility] Comment on above: This test was [...] Cholesterol in HDL [Mass/Vol] 33 mg/dL >40 [facility] Comment on above: The drugs N-Acetylcy steine and Metamizole may falsely depress this assay. Reference Range HDL <40 mg/dL Low HDL Cholesterol HDL >or= 60 mg/dL High HDL Cholesterol Serum or plasma cholesterol in VLDL measurement (mass/volume)Ordered By: Justice Root on 09-28-2022 Cholesterol in VLDL [Mass/Vol] 30 mg/dL 5-40 [facility] Serum or plasma low density lipoprotein (LDL) cholesterol measurement (mass/volume)Ordered By: Justice Root on 09-28-2022 Cholesterol in LDL [Mass/Vol] 17 mg/dL 0-130 [facility] No Panel InformationOrdered By: Dr. Johnston on 04-06-2022 Prostate Specific Antigen Total 0.02 ng/mL 0.0-4.0 [facility] Comment on above: This test was perfor med using the TPSA assay method for [employer] chemistry system. Values obtained with differentassay methods cannot be used interchangably.When changing PSA assays in the course of monitoring apatient, additional sequential testing should be carriedout to confirm baseline values. CNOVon 08-23-2021 CNOV Office Visit (GENSWS ) -------- PRANAV ALICEA ([id number]) 1955 M Date Time Provider Department 08/23/21 10:00 AM ES YIP During your visit today, we recorded the following information about you: Temperature Pulse Blood pressure Weight 97.5 degrees 104/minute 132/72 113.4 kg Height 1.829 m Es Yip PA-C 08/29/2021 1:09 PM Signed FOLLOW UP VISIT - ENDOSCOPY NAME: Pranavcuauhtemoc Alicea CLINIC NO.: [id number] DATE OF SERVICE: 08/23/2021 : 1955 REFERRING [...] use. No record of EGD completion in [facility]. Reviewed with patient, who denies having [...] which included preparing to see the patient, [id number] patient care, completing clinical documentation, obtaining and/or reviewing separately obtained history, counseling and educating the patient/family/caregiver , independently interpreting results (not separately reported) and communicating results to the patient/family/caregiver . ___ BAN Sykes PA-C 08/23/2021 10:17 AM Signed The following instructions are important for you related to your office visit today with the [facility] General Surgeons. INSTRUCTIONS FOLLOWING A POLYP [...] you should contact our office immediately @ [phone] and ask to be transferred to the General Surgery department. Referring Provider: JUSTICE ROOT [[id number]] Allergies As of Date: 08/23/2021 Noted Allergy [...] unspecified site(s)*11/02/2013 12/27/2014 Coronary artery disease involving yurok hardy*10/09/2016 Other instructions from your clinician: The following instructions are import (more content not included)... Normal [facility] Basophil percentageon 2021 Basophil percentage < 0.9 mg/dL 0.70-1.30 [facility] Work Phone: No Panel Informationon 08-22 Bedside Estimated GFR (eGFR) > 60.0000 mL/min >60 [facility] Work Phone: Glucose Glucometer (BldC) [M ass/Vol]on 08-16-2021 Glucose [Mass/Vol] 140 mg/dL 74-106 [facility] Work Phone: Comment on above: MANAGEMENT OF BRENDEN Ramirez CARE PER NURSING PROTOCOL ANES POSTPROC EVALon 022 ANES POSTPROC EVAL HNO ID: [id number] Author: Bhavna Dubon MD Service: Anesthesiology Author Type: Anesthesiologist Type: Anesthesia Postprocedure Evaluation Filed: 08/09/2021 2:04 PM Note Text: POST ANESTHESIA EVALUATION NOTE : 1955 Procedure Summary Date: 08/09/21 Room / Location: [facility] Endoscopy Anesthesia Start: 1208 Anesthesia Stop: 1242 Procedure: COLONOSCOPY SCREENING Diagnosis: History of colon polyps (Screening for colorectal malignant neoplasm) Scheduled Providers: Clinton Kramer MD; Em Tristan APRN.INSPECTOR RUBBER STAMP DIE; Bhavna Dubon MD Responsible Provider: Bhavna Dubon [...] August 09, 2021 TIME: 2:04 PM CSN: [id number] Normal [facility] ANES PRE-OPon 08-09-2021 ANES PRE-OP HNO ID: [id number] Author: Bhavna Dubon MD Service: Anesthesiology Author Type: Anesthesiologist Type: Anesthesia Preprocedure Evaluation Filed: 08/09/2021 12:03 PM Note Text: ANESTHESIOLOGY DAY OF SURGERY NOTE : 1955 Procedure Information Date/Time: 08/09/21 1230 Scheduled providers: Clinton Kramer MD; Em Tristan APRN.INSPECTOR RUBBER STAMP DIE; Bhavna Dubon MD Procedure: COLONOSCOPY SCREENING Location: [facility] Endoscopy Estimated body mass index is 34.72 kg/m? as calculated from the following: Height as of 06/13/21: 182.9 cm (6'). Weight as of 06/13/21: 116.1 kg (256 lb). Most recent hematocrit and potassium results: Potassium 4.0 11/20/2016 Relevant Problems ANESTHESIA (+) SUSIE on CPAP CARDIO (+) Coronary artery disease involving yurok coronary artery of yurok heart without angina pectoris (+) Essential hypertension, [...] within 48 hours of Surgery/Procedure. SIGNATURE: Bhavna Dbuon MD PATIENT NAME: Pranav Alicea DATE: August 09, 2021 TIME: 12:02 PM CSN: [id number] Normal [facility] COLONOSCOPY SCREENINGon 07-17 [facility] GLUCOSE, BLOOD (POC)on 08-09 Glucose [Mass/Vol] 117 mg/dL Abnormal 74 - 99 mg/dL [facility] Glucose [Mass/Vol] 134 mg/dL Abnormal 74 - 99 mg/dL [facility] HISTORY PHYSICALon HISTORY PHYSICAL HNO ID: [id number] Author: Clinton Kramer MD Service: General Surgery [...] enema. ? Past medical history significant for NC and stent placement, type II diabetes, sleep [...] The patient yola (more content not included)... [facility] SURGICAL PATHOLOGYon CASE REPORT [facility] Comment on above: Order Comment: Speci men Type: TISSUE SPECIMEN Ordering Facility: [facility] Address: [address] [place] [id number] Result Comment: Surg ica Pathology Report Case: [id number] Authorizing Provider: Clinton Kramer MD Collected: 08/09/2021 12:37 PM Ordering Location: [facility] Endoscopy Received: 08/09/2021 03:15 PM Pathologist: Daniel Melissa MD Specimen: SIGMOID COLON POLYP Performed By: #### S #### [facility] CLIA [id number] [address] [place] [address] FINAL DIAGNOSIS Normal [facility] Comment on above: Order Comment: Speci men Type: TISSUE SPECIMEN Ordering Facility: [facility] Address: [address] [place] [address] Result Comment: Renata wilkerson, sigmoid polyp, biopsy: -Fragments of sessile serrated polyp. Performed By: #### S #### [facility] CLIA [id number] [address] [place] [address] FINAL PERFORMING LAB Normal [facility] Comment on above: Order Comment: Speci men Type: TISSUE SPECIMEN Ordering Facility: [facility] Address: [address] [place] [address] Result Comment: Diag nostic interpretation performed at [facility], [address] [place] [address] CLIA# [id number] Yoker Machine Operator: Jeramy Martin M.D. Performed By: #### S #### [facility] CLIA [id number] [address] [place] [address] GROSS DESCRIPTION Normal [facility] Comment on above: Order Comment: Speci men Type: TISSUE SPECIMEN Ordering Facility: [facility] Address: [address] [place] [address] Result Comment: A. S IGMOID COLON POLYP. [...] in cassette A2. Gross examination performed at [facility], [facility] [place] [address] FFS 08/09/2021 8:35 PM Performed By: #### S #### [facility] CLIA [id number] [address] [place] [id number] [id number] [facility] CN[facility]antha 06-14-2021 CNPN Telephone (GENSWS) -------- PRANAV ALICEA ([id number]) 1955 M Date Time Provider Department 06/14/21 ES YIP During your visit today, we recorded the following information about you: Bernadine Chin 06/14/2021 8:22 AM Signed 08-23-2021 COLON ALANIZ Ever Kilpatrick 07/24/2021 4:28 PM Signed 08-09-2021 Contacted by [facility] asking if we could move case , moved to August 09 Allergies As of Date: 06/14/2021 Noted Allergy Reaction KATY INHIBITORS 10/18/2008 3 - Cough IODINE 10/18/2008 4 - Hives Date Reviewed: 06/13/2021 Reviewed by: Es Yip PA-C - Fully Assessed Reason for Visit: 05-12-2021 Colon Alaniz [Other] Primary Visit Diagnosis:History of colon polyps [Z86.010] Order(s):COLONOSCOPY SCREENING [GI51] Order #: [id number] FUTURE Prescriptions as of 09/13/2021 - ciprofloxacin [...] unspecified site(s)*11/02/2013 12/27/2014 Coronary artery disease involving yurok hardy*10/09/2016 Encounter Status:Closed by BERNADINE OSUNA on 09/13/21 [facility] CNOVon 06-13-2021 CNOV Office Visit (GENSWS ) -------- PRANAV ALICEA ([id number]) 1955 M Date Time Provider Department 06/13/21 4:20 PM ES YIPS During your visit today, we recorded the following information about you: Temperature Pulse Blood pressure Weight 98 degrees 89/minute 161/83 116.1 kg Height 1.829 m Samantha Grove 06/13/2021 4:17 PM Signed REVIEW [...] barium enema. Past medical history significant for NC and stent placement, type II diabetes, sleep [...] mg tablet (more content not included)... Normal [facility] No Panel Informationon 05-18 Prostate Specific Antigen Screen 9.57 ng/mL 0.00-4.00 [facility] Work Phone: Comment on above: This test was perfor med using the TPSA assay method for [employer] system. Values obtained with differentassay methods cannot be used interchangably.When changing PSA assays in the course of monitoring apatient, additional sequential testing should be carriedout to confirm baseline values. Prostate Specific Antigen Total 9.57 ng/mL 0.0-4.0 [facility] Work Phone: Comment on above: This test was perfor med using the TPSA assay method for [employer] chemistry system. Values obtained with differentassay methods cannot be used interchangably.When changing PSA assays in the course of monitoring apatient, additional sequential testing should be carriedout to confirm baseline values. Thyroid Stimulating Hormone (TSH) 1.60 uIU/mL 0.358-3.74 [facility] Work Phone: Whole blood hemoglobin A1c/t otal hemoglobin ratio (mass fraction)on 05-18-2021 HbA1c (Bld) [Mass fraction] 6.4 % 3.8-5.6 [facility] Work Phone: Comment on above: Normal < 5.7 % Predi abetic 5.7 - 6.4 % Diabetic >or= 6.5 % Please note range changes. Chiquis 05-30-2020 EMILY Telephone (SPPRAD) -------- PRANAV ALICEA ( ) 1955 M Date Time Provider Department 05/30/20 AUDRA DAVILA ([facility])SPPRAD During your visit today, we recorded the following information about you: Audra Chapman APRN.SHERRY 05/30/2020 1:06 PM Signed 2nd call for recall colonoscopy. Left message to call [phone] to schedule colonoscopy and speak to Ever Kilpatrick or call SP office At [phone] for questions. Letter sent out as well. [...] unspecified site(s)*11/02/2013 12/27/2014 Coronary artery disease involving yurok hardy*10/09/2016 Encounter Status:[facility]SPPRAD[facility] -------- PRANAV ALICEA ( ) 1955 M Date Time Provider Department 05/25/20 AUDRA DAVILA ([employer])SPPRAD During your visit today, we recorded the following information about you: Audra Chapman APRN.CNP 05/25/2020 1:14 PM Signed Recall colonoscopy. No answer. Left a message to call back [phone] Allergies As of Date: 05/25/2020 Noted Allergy [...] unspecified site(s)*11/02/2013 12/27/2014 Coronary artery disease involving yurok hardy*10/09/2016 More... Encounter Status:Closed by AUDRA DAVILA on 05/25/20 [facility] .Auto Diffon 10-17-2016 Basophils Auto #/vol (Bld) 0.00 10 3/mcL Normal 0.00-0.27 [facility] ([place]) Comment on above: Performed By: #### C KHANG BELTRE ANEU, BMP, TROPI, GFR ####[place] [address] [place] [address] Basophils/100 WBC Auto (Bld) 0.1 % Normal 0.0-2.5 [facility] ([place]) Comment on above: Performed By: #### C KHANG BELTRE ANEU, BMP, TROPI, GFR ####[facility] [place] [address] Eosinophils 0.10 10 3/mcL Normal 0.00-0.65 [facility] ([place]) Comment on above: Performed By: #### C BC, ADIFF, ANEU, BMP, TROPI, GFR ####[address] [address] Eosinophils/100 leukocytes 1.1 % Normal 0.0-6.0 [facility] ([place]) Comment on above: Performed By: #### C BC, ADIFF, ANEU, BMP, TROPI, GFR ####[address] [address] Lymphocytes 2.00 10 3/mcL Normal 0.90-4.32 [facility] ([place]) Comment on above: Performed By: #### C BC, ADIFF, ANEU, BMP, TROPI, GFR ####[address] [address] Lymphocytes/100 leukocytes 18.8 % Low 20.0-40.0 [facility] ([place]) Comment on above: Performed By: #### C BC, ADIFF, ANEU, BMP, TROPI, GFR ####[address] [address] Monocytes 0.80 10 3/mcL Normal 0.09-1.40 [facility] ([place]) Comment on above: Performed By: #### C BC, ADIFF, ANEU, BMP, TROPI, GFR ####[address] [address] Monocytes/100 leukocytes 7.4 % Normal 2.0-13.0 [facility] ([place]) Comment on above: Performed By: #### C BC, ADIFF, ANEU, BMP, TROPI, GFR ####[address] [address] Neutrophils/100 WBC Auto (Bld) 72.6 % Normal 50.0-75.0 [facility] ([place]) Comment on above: Performed By: #### C BC, ADIFF, ANEU, BMP, TROPI, GFR ####[address] [address] .NEUABSon 10-17-2016 Neutrophils 7.90 10 3/mcL Normal 2.25-8.10 [facility] ([place]) Comment on above: Performed By: #### C BC, ADIFF, ANEU, BMP, TROPI, GFR ####[place] [address] [place] [id number] BMPon 10-17-2016 BUN/Creatinine Ratio 18.8 ratio Normal 10.0-22.0 [facility] ([place]) Comment on above: Performed By: #### C BC, ADIFF, ANEU, BMP, GFR, LIPID ####[place] [address] Creatinine 0.64 mg/dL Normal 0.60-1.40 [facility] ([place]) Comment on above: Performed By: #### C BC, ADIFF, ANEU, BMP, GFR, LIPID ####[place] [address] Calcium 8.7 mg/dL Normal 8.4-10.1 [facility] ([place]) Comment on above: Performed By: #### C BC, ADIFF, ANEU, BMP, GFR, LIPID ####[place] [address] Chloride 108 mmol/L Normal 98-110 [facility] ([place]) Comment on above: Performed By: #### C BC, ADIFF, ANEU, BMP, GFR, LIPID ####[place] [address] CO2 29 mmol/L Normal 22-32 [facility] ([place]) Comment on above: Performed By: #### C BC, ADIFF, ANEU, BMP, GFR, LIPID ####[place] [address] Electrolyte Balance 6.0 mEq/L Normal 4.0-15.0 [facility] ([place]) Comment on above: Performed By: #### C BC, ADIFF, ANEU, BMP, GFR, LIPID ####[place] [address] Glucose mass conc 112 mg/dL Normal 82-115 [facility] ([place]) Comment on above: Performed By: #### C BC, ADIFF, ANEU, BMP, GFR, LIPID ####[place] [address] Potassium molar conc 3.6 mmol/L Normal 3.5-5.0 [facility] ([place]) Comment on above: Performed By: #### C BC, ADIFF, ANEU, BMP, GFR, LIPID ####[place] [address] Sodium 143 mmol/L Normal 136-145 [facility] ([place]) Comment on above: Performed By: #### C BC, ADIFF, ANEU, BMP, GFR, LIPID ####[place] [address] Urea nitrogen 12.0 mg/dL Normal 8.0-22.0 [facility] ([place]) Comment on above: Performed By: #### C BC, ADIFF, ANEU, BMP, GFR, LIPID ####[place] [address] CBCon 10-17-2016 Erythrocyte distribution width Auto Ratio (RBC) 13.3 % Normal 11.5-15.5 [facility] ([place]) Comment on above: Performed By: #### C BC, ADIFF, ANEU, BMP, TROPI, GFR ####[place] [address] Erythrocytes (RBC) 4.81 10 6/mcL Normal 4.50-6.00 [facility] ([place]) Comment on above: Performed By: #### C BC, ADIFF, ANEU, BMP, TROPI, GFR ####[place] [address] Hematocrit (HCT) 41.8 % Normal 40.0-52.0 [facility] ([place]) Comment on above: Performed By: #### C BC, ADIFF, ANEU, BMP, TROPI, GFR ####[place] [address] Hemoglobin mass conc (Bld) 14.8 G/dL Normal 13.0-17.5 [facility] ([place]) Comment on above: Performed By: #### C BC, ADIFF, ANEU, BMP, TROPI, GFR ####[place] [address] MCH 30.7 pg Normal 27.0-33.0 [facility] ([place] Comment on above: Performed By: #### C BC, ADIFF, ANEU, BMP, TROPI, GFR ####[place] [address] MCHC mass conc (RBC) 35.4 G/dL Normal 32.0-36.0 [facility] ([place]) Comment on above: Performed By: #### C BC, ADIFF, ANEU, BMP, TROPI, GFR ####[place] [address] MCV 86.9 fL Normal 81.0-100.0 [facility] ([place]) Comment on above: Performed By: #### C BC, ADIFF, ANEU, BMP, TROPI, GFR ####[place] [address] Platelet mean volume (PMV) 7.8 fL Normal 6.4-10.5 [facility] ([place]) Comment on above: Performed By: #### C BC, ADIFF, ANEU, BMP, TROPI, GFR ####[place] [address] Platelets 244 10 3/mcL Normal 150-450 [facility] ([place]) Comment on above: Performed By: #### C BC, ADIFF, ANEU, BMP, TROPI, GFR ####[place] [address] WBC (Leukocytes) 10.90 10 3/mcL High 4.50-10.80 [facility] ([place]) Comment on above: Performed By: #### C BC, ADIFF, ANEU, BMP, TROPI, GFR ####[place] [address] Ophthalmology Assistant Progress Noteon 10-17-2016 Ophthalmology Assistant Progress Note Normal [facility] ([place]) Depart Summaryon 10-17-2016 Depart Summary Normal [facility] ([place]) Discharge Summaryon 10-18-19 17 Discharge Summary Normal [facility]) GFRon 10-17-2016 eGFR (non-black) mL/min/{1.73_m2} Normal [facility] ([place]) Comment on above: Result Comment: GFR Population [...] C BC, ADIFF, ANEU, BMP, GFR, LIPID ####[place] [address] [place] [id number] Inpatient Patient Summaryon 10-17-2016 Inpatient Patient Summary Normal [facility] ([place]) LIPIDon 10-17-2016 Cholesterol 115 mg/dL Normal 50-199 [facility] ([place]) Comment on above: Result Comment: Chol esterol Reference Interval:Less than 200 [id number] Borderline high [id number] and above High risk Performed By: #### C BC, ADIFF, ANEU, BMP, GFR, LIPID ####[place] [address] [place] [address]67 HDL Cholesterol 43 mg/dL Normal 40-59 [facility] ([place]) Comment on above: Result Comment: HDL Reference Interval:Less than 40 Low - high risk60 or above Optimal/lowers risk Performed By: #### C BC, ADIFF, ANEU, BMP, GFR, LIPID ####[place] [address] [place] [address] LDL Cholesterol 49 mg/dL Normal 0-129 [facility] ([place]) Comment on above: Result Comment: LDL is a calculated result and requires a 12- hr fast.LDL Reference Interval:Less than 100 [id number] Near or above [id number] Borderline high [id number] High ltih142 and above Very high risk Performed By: #### C BC, ADIFF, ANEU, BMP, GFR, LIPID ####[facility] [place] [address] Triglyceride 115 mg/dL Normal 3-149 [facility] ([place]) Comment on above: Result Comment: Trig lyceride Reference Interval:Less than 150 [id number] Borderline high [id number] High [id number] or higher Very high risk Performed By: #### C BC, ADIFF, ANEU, BMP, GFR, LIPID ####[address] [address] .Auto Diffon 10-16-2016 Basophils Auto #/vol (Bld) 0.00 10 3/mcL Normal 0.00-0.27 [facility] ([place]) Comment on above: Performed By: #### C BC, ADIFF, ANEU, BMP, TROPI, GFR ####[address] [address] Basophils/100 WBC Auto (Bld) 0.1 % Normal 0.0-2.5 [facility] ([place]) Comment on above: Performed By: #### C BC, ADIFF, ANEU, BMP, TROPI, GFR ####[address] [address] Eosinophils 0.00 10 3/mcL Normal 0.00-0.65 [facility] ([place]) Comment on above: Performed By: #### C BC, ADIFF, ANEU, BMP, TROPI, GFR ####[address] [address] Eosinophils/100 leukocytes 0.1 % Normal 0.0-6.0 [facility] ([place]) Comment on above: Performed By: #### C BC, ADIFF, ANEU, BMP, TROPI, GFR ####[address] [address] Lymphocytes 0.70 10 3/mcL Low 0.90-4.32 [facility] ([place]) Comment on above: Performed By: #### C BC, ADIFF, ANEU, BMP, TROPI, GFR ####[address] [address] Lymphocytes/100 leukocytes 7.4 % Low 20.0-40.0 [facility] ([place]) Comment on above: Performed By: #### C BC, ADIFF, ANEU, BMP, TROPI, GFR ####[address] [address] Monocytes 0.30 10 3/mcL Normal 0.09-1.40 [facility] ([place]) Comment on above: Performed By: #### C BC, ADIFF, ANEU, BMP, TROPI, GFR ####[address] [address] Monocytes/100 leukocytes 2.7 % Normal 2.0-13.0 [facility] ([place]) Comment on above: Performed By: #### C BC, ADIFF, ANEU, BMP, TROPI, GFR ####[address] [address] Neutrophils/100 WBC Auto (Bld) 89.7 % High 50.0-75.0 [facility] ([place]) Comment on above: Performed By: #### C BC, ADIFF, ANEU, BMP, TROPI, GFR ####[address] [address] .NEUABSon 10-16-2016 Neutrophils 9.10 10 3/mcL High 2.25-8.10 [facility] ([place]) Comment on above: Performed By: #### C BC, ADIFF, ANEU, BMP, TROPI, GFR ####[address] [address] BMPon 10-16-2016 BUN/Creatinine Ratio 24.2 ratio High 10.0-22.0 [facility] ([place]) Comment on above: Performed By: #### C BC, ADIFF, ANEU, BMP, TROPI, GFR ####[address] [address] Calcium 9.6 mg/dL Normal 8.4-10.1 [facility] ([place]) Comment on above: Performed By: #### C BC, ADIFF, ANEU, BMP, TROPI, GFR ####[address] [address] Chloride 102 mmol/L Normal 98-110 [facility] ([place]) Comment on above: Performed By: #### C BC, ADIFF, ANEU, BMP, TROPI, GFR ####[place] [address] CO2 25 mmol/L Normal 22-32 [facility] ([place]) Comment on above: Performed By: #### C BC, ADIFF, ANEU, BMP, TROPI, GFR ####[place] [address] Creatinine 0.66 mg/dL Normal 0.60-1.40 [facility] ([place]) Comment on above: Performed By: #### C BC, ADIFF, ANEU, BMP, TROPI, GFR ####[place] [address] Electrolyte Balance 11.0 mEq/L Normal 4.0-15.0 [facility] ([place]) Comment on above: Performed By: #### C BC, ADIFF, ANEU, BMP, TROPI, GFR ####[place] [address] Glucose mass conc 171 mg/dL High 82-115 [facility] ([place]) Comment on above: Performed By: #### C BC, ADIFF, ANEU, BMP, TROPI, GFR ####[place] [address] Potassium molar conc 4.4 mmol/L Normal 3.5-5.0 [facility] ([place]) Comment on above: Performed By: #### C BC, ADIFF, ANEU, BMP, TROPI, GFR ####[place] [address] Sodium 138 mmol/L Normal 136-145 [facility] ([place]) Comment on above: Performed By: #### C BC, ADIFF, ANEU, BMP, TROPI, GFR ####[place] [address] Urea nitrogen 16.0 mg/dL Normal 8.0-22.0 [facility] ([place]) Comment on above: Performed By: #### C BC, ADIFF, ANEU, BMP, TROPI, GFR ####[place] [address] CBCon 10-16-2016 Erythrocyte distribution width Auto Ratio (RBC) 13.3 % Normal 11.5-15.5 [facility] ([place]) Comment on above: Performed By: #### C BC, ADIFF, ANEU, BMP, TROPI, GFR ####[place] [address] Erythrocytes (RBC) 5.15 10 6/mcL Normal 4.50-6.00 [facility] ([place]) Comment on above: Performed By: #### C BC, ADIFF, ANEU, BMP, TROPI, GFR ####[place] [address] Hematocrit (HCT) 44.0 % Normal 40.0-52.0 [facility] ([place]) Comment on above: Performed By: #### C BC, ADIFF, ANEU, BMP, TROPI, GFR ####[place] [address] Hemoglobin mass conc (Bld) 15.9 G/dL Normal 13.0-17.5 [facility] ([place]) Comment on above: Performed By: #### C BC, ADIFF, ANEU, BMP, TROPI, GFR ####[place] [address] MCH 30.8 pg Normal 27.0-33.0 [facility] ([place]) Comment on above: Performed By: #### C BC, ADIFF, ANEU, BMP, TROPI, GFR ####[place] [address] MCHC mass conc (RBC) 36.1 G/dL High 32.0-36.0 [facility] ([place]) Comment on above: Performed By: #### C BC, ADIFF, ANEU, BMP, TROPI, GFR ####[place] [address] MCV 85.4 fL Normal 81.0-100.0 [facility] ([place]) Comment on above: Performed By: #### C BC, ADIFF, ANEU, BMP, TROPI, GFR ####[place] [address] Platelet mean volume (PMV) 7.7 fL Normal 6.4-10.5 [facility] ([place]) Comment on above: Performed By: #### C BC, ADIFF, ANEU, BMP, TROPI, GFR ####[place] [address] Platelets 298 10 3/mcL Normal 150-450 [facility] ([place]) Comment on above: Performed By: #### C BC, ADIFF, ANEU, BMP, TROPI, GFR ####[address] [address] WBC (Leukocytes) 10.10 10 3/mcL Normal 4.50-10.80 [facility] ([place]) Comment on above: Performed By: #### C BC, ADIFF, ANEU, BMP, TROPI, GFR ####[address] [address] GFRon 10-16-2016 eGFR (non-black) mL/min/{1.73_m2} Normal [facility] ([place]) Comment on above: Result Comment: GFR Population [...] C BC, ADIFF, ANEU, BMP, TROPI, GFR ####[address] [address] PROon 10-16-2016 INR Coag RelTime (PPP) 1.0 {INR} Normal [facility] ([place]) Comment on above: Result Comment: [employer] (CHEST, 1992, [id number])recommended therapeutic range for oral anticoagulant therapy is:LOW RISK: Prophylaxis of venous thrombosis INR: 2.0-3.0 Treatment of pulmonary embolism 2.0-3.0 Prevention of systemic embolism 2.0-3.0HIGH RISK: Mechanical prosthetic valves 2.5-3.5 Performed By: #### C BC, ADIFF, ANEU, BMP, TROPI, GFR ####[address] [address] Prothrombin time (PT) Coag time (PPP) 11.7 s Normal 9.0-14.4 [facility] ([place]) Comment on above: Result Comment: Effe ctive 09/30/07, Protime results may be affected by some antibiotics (i.e. Ciprofloxacin, Azithromycin, Bactrim) which may potentiate the action of oral anticoagulants, with further increases in Protime/INR. Performed By: #### C BC, ADIFF, ANEU, BMP, TROPI, GFR ####[address] [address] .Auto Diffon 10-09-2016 Basophils Auto #/vol (Bld) 0.00 10 3/mcL Normal 0.00-0.27 [facility] ([place]) Comment on above: Performed By: #### C BC, ADIFF, ANEU, BMP, TROPI, GFR ####[place] [address] Basophils/100 WBC Auto (Bld) 0.1 % Normal 0.0-2.5 [facility] ([place]) Comment on above: Performed By: #### C BC, ADIFF, ANEU, BMP, TROPI, GFR ####[place] [address] Eosinophils 0.10 10 3/mcL Normal 0.00-0.65 [facility] ([place]) Comment on above: Performed By: #### C BC, ADIFF, ANEU, BMP, TROPI, GFR ####[place] [address] Eosinophils/100 leukocytes 1.1 % Normal 0.0-6.0 [facility] ([place]) Comment on above: Performed By: #### C BC, ADIFF, ANEU, BMP, TROPI, GFR ####[place] [address] Lymphocytes 1.60 10 3/mcL Normal 0.90-4.32 [facility] ([place]) Comment on above: Performed By: #### C BC, ADIFF, ANEU, BMP, TROPI, GFR ####[address] [place] [address] Lymphocytes/100 leukocytes 14.5 % Low 20.0-40.0 [facility] ([place]) Comment on above: Performed By: #### C BC, ADIFF, ANEU, BMP, TROPI, GFR ####[place] [address] Monocytes 0.80 10 3/mcL Normal 0.09-1.40 [facility] ([place]) Comment on above: Performed By: #### C BC, ADIFF, ANEU, BMP, TROPI, GFR ####[address] [address] Monocytes/100 leukocytes 7.1 % Normal 2.0-13.0 [facility] ([place]) Comment on above: Performed By: #### C BC, ADIFF, ANEU, BMP, TROPI, GFR ####[address] [address] Neutrophils/100 WBC Auto (Bld) 77.2 % High 50.0-75.0 [facility] ([place]) Comment on above: Performed By: #### C BC, ADIFF, ANEU, BMP, TROPI, GFR ####[place] [address] .NEUABSon 10-09-2016 Neutrophils 8.70 10 3/mcL High 2.25-8.10 [facility] ([place]) Comment on above: Performed By: #### C BC, ADIFF, ANEU, BMP, TROPI, GFR ####[place] [address] BMPon 10-09-2016 BUN/Creatinine Ratio 19.5 ratio Normal 10.0-22.0 [facility] ([place]) Comment on above: Performed By: #### C BC, ADIFF, ANEU, BMP, TROPI, GFR ####[place] [address] Calcium 9.6 mg/dL Normal 8.4-10.1 [facility] ([place]) Comment on above: Performed By: #### C BC, ADIFF, ANEU, BMP, TROPI, GFR ####[place] [address] Chloride 105 mmol/L Normal 98-110 [facility] ([place]) Comment on above: Performed By: #### C BC, ADIFF, ANEU, BMP, TROPI, GFR ####[place] [address] CO2 26 mmol/L Normal 22-32 [facility] ([place]) Comment on above: Performed By: #### C BC, ADIFF, ANEU, BMP, TROPI, GFR ####[place] [address] Creatinine 0.77 mg/dL Normal 0.60-1.40 [facility] ([place]) Comment on above: Performed By: #### C BC, ADIFF, ANEU, BMP, TROPI, GFR ####[place] [address] Electrolyte Balance 11.0 mEq/L Normal 4.0-15.0 [facility] ([place]) Comment on above: Performed By: #### C BC, ADIFF, ANEU, BMP, TROPI, GFR ####[place] [address] Glucose mass conc 100 mg/dL Normal 82-115 [facility] ([place]) Comment on above: Performed By: #### C BC, ADIFF, ANEU, BMP, TROPI, GFR ####[place] [address] Potassium molar conc 3.6 mmol/L Normal 3.5-5.0 [facility] ([place]) Comment on above: Performed By: #### C BC, ADIFF, ANEU, BMP, TROPI, GFR ####[place] [address] Sodium 142 mmol/L Normal 136-145 [facility] ([place]) Comment on above: Performed By: #### C BC, ADIFF, ANEU, BMP, TROPI, GFR ####[place] [address] Urea nitrogen 15.0 mg/dL Normal 8.0-22.0 [facility] ([place]) Comment on above: Performed By: #### C BC, ADIFF, ANEU, BMP, TROPI, GFR ####[place] [address] CBCon 10-09-2016 Erythrocyte distribution width Auto Ratio (RBC) 13.2 % Normal 11.5-15.5 [facility] ([place]) Comment on above: Performed By: #### C BC, ADIFF, ANEU, BMP, TROPI, GFR ####[place] [address] Erythrocytes (RBC) 5.24 10 6/mcL Normal 4.50-6.00 [facility] ([place]) Comment on above: Performed By: #### C BC, ADIFF, ANEU, BMP, TROPI, GFR ####[place] [address] Hematocrit (HCT) 45.7 % Normal 40.0-52.0 [facility] ([place]) Comment on above: Performed By: #### C BC, ADIFF, ANEU, BMP, TROPI, GFR ####[place] [address] Hemoglobin mass conc (Bld) 16.0 G/dL Normal 13.0-17.5 [facility] ([place]) Comment on above: Performed By: #### C BC, ADIFF, ANEU, BMP, TROPI, GFR ####[place] [address] MCH 30.5 pg Normal 27.0-33.0 [facility] ([place]) Comment on above: Performed By: #### C BC, ADIFF, ANEU, BMP, TROPI, GFR ####[place] [address] MCHC mass conc (RBC) 34.9 G/dL Normal 32.0-36.0 [facility] ([place]) Comment on above: Performed By: #### C BC, ADIFF, ANEU, BMP, TROPI, GFR ####[place] [address] MCV 87.2 fL Normal 81.0-100.0 [facility] ([place]) Comment on above: Performed By: #### C BC, ADIFF, ANEU, BMP, TROPI, GFR ####[address] [address] Platelet mean volume (PMV) 7.6 fL Normal 6.4-10.5 [facility] ([place]) Comment on above: Performed By: #### C BC, ADIFF, ANEU, BMP, TROPI, GFR ####[address] [address] Platelets 270 10 3/mcL Normal 150-450 [facility] ([place]) Comment on above: Performed By: #### C BC, ADIFF, ANEU, BMP, TROPI, GFR ####[address] [address] WBC (Leukocytes) 11.30 10 3/mcL High 4.50-10.80 [facility] ([place]) Comment on above: Performed By: #### C BC, ADIFF, ANEU, BMP, TROPI, GFR ####[address] [address] Ophthalmology Assistant Progress Noteon 10-09-2016 Ophthalmology Assistant Progress Note Normal [facility] ([place]) Depart Summaryon 10-09-2016 Depart Summary Normal [facility] ([place]) Discharge Summaryon 10-10-19 17 Discharge Summary Normal [facility] ([place]) Discharge Summary Normal [facility]) GFRon 10-09-2016 eGFR (non-black) mL/min/{1.73_m2} Normal [facility] ([place]) Comment on above: Result Comment: GFR Population [...] C BC, ADIFF, ANEU, BMP, TROPI, GFR ####[address] [address] Inpatient Patient Summaryon 10-09-2016 Inpatient Patient Summary Normal [facility] ([place]) .Auto Diffon 10-08-2016 Basophils Auto #/vol (Bld) 0.00 10 3/mcL Normal 0.00-0.27 [facility] ([place]) Comment on above: Performed By: #### C BC, ADIFF, ANEU, BMP, TROPI, GFR ####[address] [address] Basophils/100 WBC Auto (Bld) 0.2 % Normal 0.0-2.5 [facility] ([place]) Comment on above: Performed By: #### C BC, ADIFF, ANEU, BMP, TROPI, GFR ####[address] [address] Eosinophils 0.20 10 3/mcL Normal 0.00-0.65 [facility] ([place]) Comment on above: Performed By: #### C BC, ADIFF, ANEU, BMP, TROPI, GFR ####[address] [address] Eosinophils/100 leukocytes 4.0 % Normal 0.0-6.0 [facility] ([place]) Comment on above: Performed By: #### C BC, ADIFF, ANEU, BMP, TROPI, GFR ####[address] [address] Lymphocytes 1.40 10 3/mcL Normal 0.90-4.32 [facility] ([place]) Comment on above: Performed By: #### C BC, ADIFF, ANEU, BMP, TROPI, GFR ####[address] [address] Lymphocytes/100 leukocytes 22.6 % Normal 20.0-40.0 [facility] ([place]) Comment on above: Performed By: #### C BC, ADIFF, ANEU, BMP, TROPI, GFR ####[address] [address] Monocytes 0.40 10 3/mcL Normal 0.09-1.40 [facility] ([place]) Comment on above: Performed By: #### C BC, ADIFF, ANEU, BMP, TROPI, GFR ####[address] [address] Monocytes/100 leukocytes 7.3 % Normal 2.0-13.0 [facility] ([place]) Comment on above: Performed By: #### C BC, ADIFF, ANEU, BMP, TROPI, GFR ####[address] [address] Neutrophils/100 WBC Auto (Bld) 65.9 % Normal 50.0-75.0 [facility] ([place]) Comment on above: Performed By: #### C BC, ADIFF, ANEU, BMP, TROPI, GFR ####[address] [address] .NEUABSon 10-08-2016 Neutrophils 4.00 10 3/mcL Normal 2.25-8.10 [facility] ([place]) Comment on above: Performed By: #### C BC, ADIFF, ANEU, BMP, TROPI, GFR ####[place] [address] APTTon 10-08-2016 aPTT Heparin IV Normal [facility] ([place]) Comment on above: Performed By: #### C BC, ADIFF, ANEU, BMP, TROPI, GFR ####[place] [address] aPTT 64.6 s High 25.0-35.0 [facility] ([place]) Comment on above: Result Comment: For Heparin anticoagulation therapy, the recommendedtherapeutic range is: 54-77 seconds (APTT Correlationwith Anti-Xa therapeutic range of 0.3-0.7 units/ml).PLEASE REFERENCE THE PHARMACY PROTOCOL FOR DOSING. Performed By: #### C BC, ADIFF, ANEU, BMP, TROPI, GFR ####[place] [address] aPTT 63.8 s High 25.0-35.0 [facility] ([place]) Comment on above: Result Comment: For Heparin anticoagulation therapy, the recommendedtherapeutic range is: 54-77 seconds (APTT Correlationwith Anti-Xa therapeutic range of 0.3-0.7 units/ml).PLEASE REFERENCE THE PHARMACY PROTOCOL FOR DOSING. Performed By: #### C BC, ADIFF, ANEU, BMP, TROPI, GFR ####[place] [address] aPTT Heparin IV Normal [facility] ([place]) Comment on above: Performed By: #### C BC, ADIFF, ANEU, BMP, TROPI, GFR ####[place] [address] BMPon 10-08-2016 BUN/Creatinine Ratio 14.5 ratio Normal 10.0-22.0 [facility] ([place]) Comment on above: Performed By: #### C BC, ADIFF, ANEU, BMP, TROPI, GFR ####[place] [address] Calcium 9.1 mg/dL Normal 8.4-10.1 [facility] ([place]) Comment on above: Performed By: #### C BC, ADIFF, ANEU, BMP, TROPI, GFR ####[place] [address] Chloride 105 mmol/L Normal 98-110 [facility] ([place]) Comment on above: Performed By: #### C BC, ADIFF, ANEU, BMP, TROPI, GFR ####[place] [address] CO2 28 mmol/L Normal 22-32 [facility] ([place]) Comment on above: Performed By: #### C BC, ADIFF, ANEU, BMP, TROPI, GFR ####[place] [address] Creatinine 0.76 mg/dL Normal 0.60-1.40 [facility] ([place]) Comment on above: Performed By: #### C BC, ADIFF, ANEU, BMP, TROPI, GFR ####[place] [address] Electrolyte Balance 7.0 mEq/L Normal 4.0-15.0 [facility] ([place]) Comment on above: Performed By: #### C BC, ADIFF, ANEU, BMP, TROPI, GFR ####[place] [id number] Glucose mass conc 110 mg/dL Normal 82-115 [facility] ([place]) Comment on above: Performed By: #### C BC, ADIFF, ANEU, BMP, TROPI, GFR ####[place] [address] Potassium molar conc 4.1 mmol/L Normal 3.5-5.0 [facility] ([place]) Comment on above: Performed By: #### C BC, ADIFF, ANEU, BMP, TROPI, GFR ####[place] [address] Sodium 140 mmol/L Normal 136-145 [facility] ([place]) Comment on above: Performed By: #### C BC, ADIFF, ANEU, BMP, TROPI, GFR ####[place] [address] Urea nitrogen 11.0 mg/dL Normal 8.0-22.0 [facility] ([place]) Comment on above: Performed By: #### C BC, ADIFF, ANEU, BMP, TROPI, GFR ####[place] [address] CBCon 10-08-2016 Erythrocyte distribution width Auto Ratio (RBC) 13.3 % Normal 11.5-15.5 [facility] ([place]) Comment on above: Performed By: #### C BC, ADIFF, ANEU, BMP, TROPI, GFR ####[place] [address] Erythrocytes (RBC) 5.00 10 6/mcL Normal 4.50-6.00 [facility] ([place]) Comment on above: Performed By: #### C BC, ADIFF, ANEU, BMP, TROPI, GFR ####[place] [address] Hematocrit (HCT) 43.2 % Normal 40.0-52.0 [facility] ([place]) Comment on above: Performed By: #### C BC, ADIFF, ANEU, BMP, TROPI, GFR ####[place] [address] Hemoglobin mass conc (Bld) 15.1 G/dL Normal 13.0-17.5 [facility] ([place]) Comment on above: Performed By: #### C BC, ADIFF, ANEU, BMP, TROPI, GFR ####[place] [address] MCH 30.3 pg Normal 27.0-33.0 [facility] ([place]) Comment on above: Performed By: #### C BC, ADIFF, ANEU, BMP, TROPI, GFR ####[place] [address] MCHC mass conc (RBC) 35.0 G/dL Normal 32.0-36.0 [facility] ([place]) Comment on above: Performed By: #### C BC, ADIFF, ANEU, BMP, TROPI, GFR ####[place] [address] MCV 86.4 fL Normal 81.0-100.0 [facility] ([place]) Comment on above: Performed By: #### C BC, ADIFF, ANEU, BMP, TROPI, GFR ####[place] [address] Platelet mean volume (PMV) 7.6 fL Normal 6.4-10.5 [facility] ([place]) Comment on above: Performed By: #### C BC, ADIFF, ANEU, BMP, TROPI, GFR ####[place] [address] Platelets 217 10 3/mcL Normal 150-450 [facility] ([place]) Comment on above: Performed By: #### C BC, ADIFF, ANEU, BMP, TROPI, GFR ####[place] [address] WBC (Leukocytes) 6.10 10 3/mcL Normal 4.50-10.80 [facility] ([place]) Comment on above: Performed By: #### C BC, ADIFF, ANEU, BMP, TROPI, GFR ####[place] [address] Ophthalmology Assistant Progress Noteon 10-08-2016 Ophthalmology Assistant Progress Note Normal [facility] ([place]) GFRon 10-08-2016 eGFR (non-black) mL/min/{1.73_m2} Normal [facility] ([place]) Comment on above: Result Comment: GFR Population [...] C BC, ADIFF, ANEU, BMP, TROPI, GFR ####[address] [address] .Auto Diffon 10-07-2016 Basophils Auto #/vol (Bld) 0.00 10 3/mcL Normal 0.00-0.27 [facility] ([place]) Comment on above: Performed By: #### C BC, ADIFF, ANEU, BMP, TROPI, GFR ####[address] [address] Basophils/100 WBC Auto (Bld) 0.2 % Normal 0.0-2.5 [facility] ([place]) Comment on above: Performed By: #### C BC, ADIFF, ANEU, BMP, TROPI, GFR ####[address] [address] Eosinophils 0.30 10 3/mcL Normal 0.00-0.65 [facility] ([place] Comment on above: Performed By: #### C BC, ADIFF, ANEU, BMP, TROPI, GFR ####[address] [address] Eosinophils/100 leukocytes 3.5 % Normal 0.0-6.0 [facility] ([place]) Comment on above: Performed By: #### C BC, ADIFF, ANEU, BMP, TROPI, GFR ####[address] [address] Lymphocytes 1.60 10 3/mcL Normal 0.90-4.32 [facility] ([place]) Comment on above: Performed By: #### C BC, ADIFF, ANEU, BMP, TROPI, GFR ####[address] [address] Lymphocytes/100 leukocytes 22.3 % Normal 20.0-40.0 [facility] ([place] Comment on above: Performed By: #### C BC, ADIFF, ANEU, BMP, TROPI, GFR ####[place] [address] Monocytes 0.50 10 3/mcL Normal 0.09-1.40 [facility] ([place]) Comment on above: Performed By: #### C BC, ADIFF, ANEU, BMP, TROPI, GFR ####[place] [address] Monocytes/100 leukocytes 7.3 % Normal 2.0-13.0 [facility] ([place]) Comment on above: Performed By: #### C BC, ADIFF, ANEU, BMP, TROPI, GFR ####[address] [address] Neutrophils/100 WBC Auto (Bld) 66.7 % Normal 50.0-75.0 [facility] ([place]) Comment on above: Performed By: #### C BC, ADIFF, ANEU, BMP, TROPI, GFR ####[place] [address] .NEUABSon 10-07-2016 Neutrophils 4.80 10 3/mcL Normal 2.25-8.10 [facility] ([place]) Comment on above: Performed By: #### C BC, ADIFF, ANEU, BMP, TROPI, GFR ####[place] [address] APTTon 10-07-2016 aPTT Heparin IV Normal [facility] ([place]) Comment on above: Performed By: #### C BC, ADIFF, ANEU, BMP, TROPI, GFR ####[place] [address] aPTT 56.0 s High 25.0-35.0 [facility] ([place]) Comment on above: Result Comment: For Heparin anticoagulation therapy, the recommendedtherapeutic range is: 54-77 seconds (APTT Correlationwith Anti-Xa therapeutic range of 0.3-0.7 units/ml).PLEASE REFERENCE THE PHARMACY PROTOCOL FOR DOSING. Performed By: #### C BC, ADIFF, ANEU, BMP, TROPI, GFR ####[place] [address] aPTT 49.6 s High 25.0-35.0 [facility] ([place]) Comment on above: Result Comment: For Heparin anticoagulation therapy, the recommendedtherapeutic range is: 54-77 seconds (APTT Correlationwith Anti-Xa therapeutic range of 0.3-0.7 units/ml).PLEASE REFERENCE THE PHARMACY PROTOCOL FOR DOSING. Performed By: #### C BC, ADIFF, ANEU, BMP, TROPI, GFR ####[place] [address] aPTT Heparin IV Normal [facility] ([place]) Comment on above: Performed By: #### C BC, ADIFF, ANEU, BMP, TROPI, GFR ####[address] [address] aPTT Heparin IV Normal [facility] ([place]) Comment on above: Performed By: #### C BC, ADIFF, ANEU, BMP, TROPI, GFR ####[place] [address] aPTT 72.1 s High 25.0-35.0 [facility] ([place]) Comment on above: Result Comment: For Heparin anticoagulation therapy, the recommendedtherapeutic range is: 54-77 seconds (APTT Correlationwith Anti-Xa therapeutic range of 0.3-0.7 units/ml).PLEASE REFERENCE THE PHARMACY PROTOCOL FOR DOSING. Performed By: #### C BC, ADIFF, ANEU, BMP, TROPI, GFR ####[place] [address] aPTT 65.7 s High 25.0-35.0 [facility] ([place]) Comment on above: Result Comment: For Heparin anticoagulation therapy, the recommendedtherapeutic range is: 54-77 seconds (APTT Correlationwith Anti-Xa therapeutic range of 0.3-0.7 units/ml).PLEASE REFERENCE THE PHARMACY PROTOCOL FOR DOSING. Performed By: #### C BC, ADIFF, ANEU, BMP, TROPI, GFR ####[place] [address] aPTT Heparin IV Normal [facility] ([place]) Comment on above: Performed By: #### C BC, ADIFF, ANEU, BMP, TROPI, GFR ####[place] [address] CBCon 10-07-2016 Erythrocyte distribution width Auto Ratio (RBC) 13.3 % Normal 11.5-15.5 [facility] ([place]) Comment on above: Performed By: #### C BC, ADIFF, ANEU, BMP, TROPI, GFR ####[place] [address] Erythrocytes (RBC) 4.88 10 6/mcL Normal 4.50-6.00 [facility] ([place]) Comment on above: Performed By: #### C BC, ADIFF, ANEU, BMP, TROPI, GFR ####[place] [address] Hematocrit (HCT) 42.6 % Normal 40.0-52.0 [facility] ([place]) Comment on above: Performed By: #### C BC, ADIFF, ANEU, BMP, TROPI, GFR ####[place] [address] Hemoglobin mass conc (Bld) 14.9 G/dL Normal 13.0-17.5 [facility] ([place]) Comment on above: Performed By: #### C BC, ADIFF, ANEU, BMP, TROPI, GFR ####[place] [address] MCH 30.5 pg Normal 27.0-33.0 [facility] ([place]) Comment on above: Performed By: #### C BC, ADIFF, ANEU, BMP, TROPI, GFR ####[place] [address] MCHC mass conc (RBC) 35.0 G/dL Normal 32.0-36.0 [facility] ([place]) Comment on above: Performed By: #### C BC, ADIFF, ANEU, BMP, TROPI, GFR ####[place] [address] MCV 87.2 fL Normal 81.0-100.0 [facility] ([place]) Comment on above: Performed By: #### C BC, ADIFF, ANEU, BMP, TROPI, GFR ####[place] [address] Platelet mean volume (PMV) 7.6 fL Normal 6.4-10.5 [facility] ([place]) Comment on above: Performed By: #### C BC, ADIFF, ANEU, BMP, TROPI, GFR ####[place] [address] Platelets 244 10 3/mcL Normal 150-450 [facility] ([place]) Comment on above: Performed By: #### C BC, ADIFF, ANEU, BMP, TROPI, GFR ####[place] [address] WBC (Leukocytes) 7.20 10 3/mcL Normal 4.50-10.80 [facility] ([place]) Comment on above: Performed By: #### C BC, ADIFF, ANEU, BMP, TROPI, GFR ####[place] [address] .Auto Diffon 10-06-2016 Basophils Auto #/vol (Bld) 0.00 10 3/mcL Normal 0.00-0.27 [facility] ([place]) Comment on above: Performed By: #### C BC, ADIFF, ANEU, BMP, TROPI, GFR ####[place] [address] Basophils/100 WBC Auto (Bld) 0.2 % Normal 0.0-2.5 [facility] ([place]) Comment on above: Performed By: #### C BC, ADIFF, ANEU, BMP, TROPI, GFR ####[place] [address] Eosinophils 0.20 10 3/mcL Normal 0.00-0.65 [facility] ([place]) Comment on above: Performed By: #### C BC, ADIFF, ANEU, BMP, TROPI, GFR ####[address] [address] Eosinophils/100 leukocytes 4.2 % Normal 0.0-6.0 [facility] ([place]) Comment on above: Performed By: #### C BC, ADIFF, ANEU, BMP, TROPI, GFR ####[address] [address] Lymphocytes 1.40 10 3/mcL Normal 0.90-4.32 [facility] ([place]) Comment on above: Performed By: #### C BC, ADIFF, ANEU, BMP, TROPI, GFR ####[address] [address] Lymphocytes/100 leukocytes 23.1 % Normal 20.0-40.0 [facility] ([place]) Comment on above: Performed By: #### C BC, ADIFF, ANEU, BMP, TROPI, GFR ####[address] [address] Monocytes 0.50 10 3/mcL Normal 0.09-1.40 [facility] ([place]) Comment on above: Performed By: #### C BC, ADIFF, ANEU, BMP, TROPI, GFR ####[address] [address] Monocytes/100 leukocytes 8.2 % Normal 2.0-13.0 [facility] ([place]) Comment on above: Performed By: #### C BC, ADIFF, ANEU, BMP, TROPI, GFR ####[address] [address] Neutrophils/100 WBC Auto (Bld) 64.3 % Normal 50.0-75.0 [facility] ([place]) Comment on above: Performed By: #### C BC, ADIFF, ANEU, BMP, TROPI, GFR ####[address] [address] Basophils Auto #/vol (Bld) 0.00 10 3/mcL Normal 0.00-0.27 [facility] ([place]) Comment on above: Performed By: #### C BC, ADIFF, ANEU, BMP, TROPI, GFR ####[address] [address] Basophils/100 WBC Auto (Bld) 0.1 % Normal 0.0-2.5 [facility] ([place]) Comment on above: Performed By: #### C BC, ADIFF, ANEU, BMP, TROPI, GFR ####[address] [address] Eosinophils 0.30 10 3/mcL Normal 0.00-0.65 [facility] ([place]) Comment on above: Performed By: #### C BC, ADIFF, ANEU, BMP, TROPI, GFR ####[address] [address] Eosinophils/100 leukocytes 4.2 % Normal 0.0-6.0 [facility] ([place]) Comment on above: Performed By: #### C BC, ADIFF, ANEU, BMP, TROPI, GFR ####[address] [address] Lymphocytes 1.80 10 3/mcL Normal 0.90-4.32 [facility] ([place]) Comment on above: Performed By: #### C BC, ADIFF, ANEU, BMP, TROPI, GFR ####[address] [address] Lymphocytes/100 leukocytes 26.6 % Normal 20.0-40.0 [facility] ([place]) Comment on above: Performed By: #### C BC, ADIFF, ANEU, BMP, TROPI, GFR ####[address] [address] Monocytes 0.70 10 3/mcL Normal 0.09-1.40 [facility] ([place]) Comment on above: Performed By: #### C BC, ADIFF, ANEU, BMP, TROPI, GFR ####[address] [address] Monocytes/100 leukocytes 10.7 % Normal 2.0-13.0 [facility] ([place]) Comment on above: Performed By: #### C BC, ADIFF, ANEU, BMP, TROPI, GFR ####[place] [address] Neutrophils/100 WBC Auto (Bld) 58.4 % Normal 50.0-75.0 [facility] ([place]) Comment on above: Performed By: #### C BC, ADIFF, ANEU, BMP, TROPI, GFR ####[place] [address] .NEUABSon 10-06-2016 Neutrophils 3.80 10 3/mcL Normal 2.25-8.10 [facility] ([place]) Comment on above: Performed By: #### C BC, ADIFF, ANEU, BMP, TROPI, GFR ####[place] [address] Neutrophils 4.00 10 3/mcL Normal 2.25-8.10 [facility] ([place]) Comment on above: Performed By: #### C BC, ADIFF, ANEU, BMP, TROPI, GFR ####[place] [address] APTTon 10-06-2016 aPTT Heparin IV Normal [facility] ([place]) Comment on above: Performed By: #### C BC, ADIFF, ANEU, BMP, TROPI, GFR ####[place] [address] aPTT 57.4 s High 25.0-35.0 [facility] ([place]) Comment on above: Result Comment: For Heparin anticoagulation therapy, the recommendedtherapeutic range is: 54-77 seconds (APTT Correlationwith Anti-Xa therapeutic range of 0.3-0.7 units/ml).PLEASE REFERENCE THE PHARMACY PROTOCOL FOR DOSING. Performed By: #### C BC, ADIFF, ANEU, BMP, TROPI, GFR ####[place] [address] aPTT Heparin IV Normal [facility] ([place]) Comment on above: Performed By: #### C BC, ADIFF, ANEU, BMP, TROPI, GFR ####[place] [address] aPTT 45.1 s High 25.0-35.0 [facility] ([place]) Comment on above: Result Comment: For Heparin anticoagulation therapy, the recommendedtherapeutic range is: 54-77 seconds (APTT Correlationwith Anti-Xa therapeutic range of 0.3-0.7 units/ml).PLEASE REFERENCE THE PHARMACY PROTOCOL FOR DOSING. Performed By: #### C BC, ADIFF, ANEU, BMP, TROPI, GFR ####[place] [address] aPTT 48.7 s High 25.0-35.0 [facility] ([place]) Comment on above: Result Comment: For Heparin anticoagulation therapy, the recommendedtherapeutic range is: 54-77 seconds (APTT Correlationwith Anti-Xa therapeutic range of 0.3-0.7 units/ml).PLEASE REFERENCE THE PHARMACY PROTOCOL FOR DOSING. Performed By: #### C BC, ADIFF, ANEU, BMP, TROPI, GFR ####[place] [address] aPTT Heparin IV Normal [facility] ([place]) Comment on above: Performed By: #### C BC, ADIFF, ANEU, BMP, TROPI, GFR ####[place] [address] aPTT None Normal [facility] ([place]) Comment on above: Performed By: #### C BC, ADIFF, ANEU, BMP, TROPI, GFR ####[place] [address] aPTT 27.9 s Normal 25.0-35.0 [facility] ([place]) Comment on above: Result Comment: For Heparin anticoagulation therapy, the recommendedtherapeutic range is: 54-77 seconds (APTT Correlationwith Anti-Xa therapeutic range of 0.3-0.7 units/ml).PLEASE REFERENCE THE PHARMACY PROTOCOL FOR DOSING. Performed By: #### C BC, ADIFF, ANEU, BMP, TROPI, GFR ####[place] [address] CBCon 10-06-2016 Erythrocyte distribution width Auto Ratio (RBC) 13.2 % Normal 11.5-15.5 [facility] ([place]) Comment on above: Performed By: #### C BC, ADIFF, ANEU, BMP, TROPI, GFR ####[place] [address] Erythrocytes (RBC) 4.72 10 6/mcL Normal 4.50-6.00 [facility] ([place]) Comment on above: Performed By: #### C BC, ADIFF, ANEU, BMP, TROPI, GFR ####[place] [address] Hematocrit (HCT) 41.2 % Normal 40.0-52.0 [facility] ([place]) Comment on above: Performed By: #### C BC, ADIFF, ANEU, BMP, TROPI, GFR ####[place] [address] Hemoglobin mass conc (Bld) 14.3 G/dL Normal 13.0-17.5 [facility] ([place]) Comment on above: Performed By: #### C BC, ADIFF, ANEU, BMP, TROPI, GFR ####[place] [address] MCH 30.4 pg Normal 27.0-33.0 [facility] ([place]) Comment on above: Performed By: #### C BC, ADIFF, ANEU, BMP, TROPI, GFR ####[place] [address] MCHC mass conc (RBC) 34.7 G/dL Normal 32.0-36.0 [facility] ([place]) Comment on above: Performed By: #### C BC, ADIFF, ANEU, BMP, TROPI, GFR ####[place] [address] MCV 87.4 fL Normal 81.0-100.0 [facility] ([place]) Comment on above: Performed By: #### C BC, ADIFF, ANEU, BMP, TROPI, GFR ####[place] [address] Platelet mean volume (PMV) 7.6 fL Normal 6.4-10.5 [facility] ([place]) Comment on above: Performed By: #### C BC, ADIFF, ANEU, BMP, TROPI, GFR ####[place] [address] Platelets 221 10 3/mcL Normal 150-450 [facility] ([place]) Comment on above: Performed By: #### C BC, ADIFF, ANEU, BMP, TROPI, GFR ####[place] [address] WBC (Leukocytes) 5.90 10 3/mcL Normal 4.50-10.80 [facility] ([place]) Comment on above: Performed By: #### C BC, ADIFF, ANEU, BMP, TROPI, GFR ####[place] [address] Erythrocyte distribution width Auto Ratio (RBC) 13.4 % Normal 11.5-15.5 [facility] ([place]) Comment on above: Performed By: #### C BC, ADIFF, ANEU, BMP, TROPI, GFR ####[place] [address] Erythrocytes (RBC) 4.64 10 6/mcL Normal 4.50-6.00 [facility] ([place]) Comment on above: Performed By: #### C BC, ADIFF, ANEU, BMP, TROPI, GFR ####[place] [address] Hematocrit (HCT) 40.4 % Normal 40.0-52.0 [facility] ([place]) Comment on above: Performed By: #### C BC, ADIFF, ANEU, BMP, TROPI, GFR ####[place] [address] Hemoglobin mass conc (Bld) 14.0 G/dL Normal 13.0-17.5 [facility] ([place]) Comment on above: Performed By: #### C BC, ADIFF, ANEU, BMP, TROPI, GFR ####[place] [address] MCH 30.2 pg Normal 27.0-33.0 [facility] ([place]) Comment on above: Performed By: #### C BC, ADIFF, ANEU, BMP, TROPI, GFR ####[place] [address] MCH mass conc (RBC) 34.7 G/dL Normal 32.0-36.0 [facility] ([place] Comment on above: Performed By: #### C BC, ADIFF, ANEU, BMP, TROPI, GFR ####[place] [address] MCV 87.0 fL Normal 81.0-100.0 [facility] ([place]) Comment on above: Performed By: #### C BC, ADIFF, ANEU, BMP, TROPI, GFR ####[place] [address] Platelet mean volume (PMV) 7.7 fL Normal 6.4-10.5 [facility] ([place]) Comment on above: Performed By: #### C BC, ADIFF, ANEU, BMP, TROPI, GFR ####[place] [address] Platelets 212 10 3/mcL Normal 150-450 [facility] ([place] Comment on above: Performed By: #### C BC, ADIFF, ANEU, BMP, TROPI, GFR ####[place] [address] WBC (Leukocytes) 6.80 10 3/mcL Normal 4.50-10.80 [facility] ([place]) Comment on above: Performed By: #### C BC, ADIFF, ANEU, BMP, TROPI, GFR ####[place] [address] CMPon 10-06-2016 Albumin/Globulin Ratio 1.2 {ratio} Normal 0.9-1.6 A [facility] ([place]) Comment on above: Performed By: #### C BC, ADIFF, ANEU, BMP, TROPI, GFR ####[place] [address] Alk Phos 63 U/L Normal 38-126 [facility] ([place]) Comment on above: Performed By: #### C BC, ADIFF, ANEU, BMP, TROPI, GFR ####[place] [address] Bili Total 0.6 mg/dL Normal 0.2-1.2 [facility] ([place]) Comment on above: Performed By: #### C BC, ADIFF, ANEU, BMP, TROPI, GFR ####[address] [address] Globulin 3.2 G/dL Normal 1.5-3.8 [facility] ([place]) Comment on above: Performed By: #### C BC, ADIFF, ANEU, BMP, TROPI, GFR ####[address] [address] Protein 7.0 G/dL Normal 6.0-8.5 [facility] ([place]) Comment on above: Performed By: #### C BC, ADIFF, ANEU, BMP, TROPI, GFR ####[place] [address] Alanine aminotransferase (ALT) 59 U/L High 12-55 [facility] ([place]) Comment on above: Performed By: #### C BC, ADIFF, ANEU, BMP, TROPI, GFR ####[place] [address] Albumin 3.8 G/dL Normal 3.2-4.8 [facility] ([place]) Comment on above: Performed By: #### C BC, ADIFF, ANEU, BMP, TROPI, GFR ####[place] [address] Aspartate aminotransferase (AST) 39 U/L High 8-34 [facility] ([place]) Comment on above: Performed By: #### C BC, ADIFF, ANEU, BMP, TROPI, GFR ####[place] [address] BUN/Creatinine Ratio 17.6 ratio Normal 10.0-22.0 [facility] ([place]) Comment on above: Performed By: #### C BC, ADIFF, ANEU, BMP, TROPI, GFR ####[address] [address] Calcium 8.9 mg/dL Normal 8.4-10.1 [facility] ([place]) Comment on above: Performed By: #### C BC, ADIFF, ANEU, BMP, TROPI, GFR ####[place] [address] Chloride 106 mmol/L Normal 98-110 [facility] ([place]) Comment on above: Performed By: #### C BC, ADIFF, ANEU, BMP, TROPI, GFR ####[address] [address] CO2 27 mmol/L Normal 22-32 [facility] ([place]) Comment on above: Performed By: #### C BC, ADIFF, ANEU, BMP, TROPI, GFR ####[place] [address] Creatinine 0.68 mg/dL Normal 0.60-1.40 [facility] ([place]) Comment on above: Performed By: #### C BC, ADIFF, ANEU, BMP, TROPI, GFR ####[place] [address] Electrolyte Balance 8.0 mEq/L Normal 4.0-15.0 [facility] ([place]) Comment on above: Performed By: #### C BC, ADIFF, ANEU, BMP, TROPI, GFR ####[place] [address] Glucose mass conc 119 mg/dL High 82-115 [facility] ([place]) Comment on above: Performed By: #### C BC, ADIFF, ANEU, BMP, TROPI, GFR ####[place] [address] Potassium molar conc 4.0 mmol/L Normal 3.5-5.0 [facility] ([place]) Comment on above: Performed By: #### C BC, ADIFF, ANEU, BMP, TROPI, GFR ####[place] [address] Sodium 141 mmol/L Normal 136-145 [facility] ([place]) Comment on above: Performed By: #### C BC, ADIFF, ANEU, BMP, TROPI, GFR ####[place] [address] Urea nitrogen 12.0 mg/dL Normal 8.0-22.0 [facility] ([place]) Comment on above: Performed By: #### C BC, ADIFF, ANEU, BMP, TROPI, GFR ####[place] [address] GFRon 10-06-2016 eGFR (non-black) mL/min/{1.73_m2} Normal [facility] ([place]) Comment on above: Result Comment: GFR Population [...] C BC, ADIFF, ANEU, BMP, TROPI, GFR ####[place] [address] LIPIDon 10-06-2016 Cholesterol 123 mg/dL Normal 50-199 [facility] ([place]) Comment on above: Result Comment: Chol esterol Reference Interval:Less than 200 [id number] Borderline high [id number] and above High risk Performed By: #### C BC, ADIFF, ANEU, BMP, TROPI, GFR ####[place] [address] HDL Cholesterol 41 mg/dL Normal 40-59 [facility] ([place]) Comment on above: Result Comment: HDL Reference Interval:Less than 40 Low - high risk60 or above Optimal/lowers risk Performed By: #### C BC, ADIFF, ANEU, BMP, TROPI, GFR ####[place] [address] LDL Cholesterol 53 mg/dL Normal 0-129 [facility] ([place]) Comment on above: Result Comment: LDL is a calculated result and requires a 12- hr fast.LDL Reference Interval:Less than 100 [id number] Near or above [id number] Borderline high [id number] High [id number] and above Very high risk Performed By: #### C BC, ADIFF, ANEU, BMP, TROPI, GFR ####[place] [address] [place] [address] Triglyceride 143 mg/dL Normal 3-149 [facility] ([place]) Comment on above: Result Comment: Trig lyceride Reference Interval:Less than 150 [id number] Borderline high [id number] High [id number] or higher Very high risk Performed By: #### C BC, ADIFF, ANEU, BMP, TROPI, GFR ####[address] [address] PROon 10-06-2016 INR Coag RelTime (PPP) 1.0 {INR} Normal [facility] ([place]) Comment on above: Result Comment: [employer] (CHEST, 1992, [id number])recommended therapeutic range for oral anticoagulant therapy is:LOW RISK: Prophylaxis of venous thrombosis INR: 2.0-3.0 Treatment of pulmonary embolism 2.0-3.0 Prevention of systemic embolism 2.0-3.0HIGH RISK: Mechanical prosthetic valves 2.5-3.5 Performed By: #### C BC, ADIFF, ANEU, BMP, TROPI, GFR ####[address] [address] Prothrombin time (PT) Coag time (PPP) 11.8 s Normal 9.0-14.4 [facility] ([place]) Comment on above: Result Comment: Effe ctive 09/30/07, Protime results may be affected by some antibiotics (i.e. Ciprofloxacin, Azithromycin, Bactrim) which may potentiate the action of oral anticoagulants, with further increases in Protime/INR. Performed By: #### C BC, ADIFF, ANEU, BMP, TROPI, GFR ####[address] [address] TROPIon 10-06-2016 Troponin I.cardiac mass conc 0.981 ng/mL High 0.000-0.040 [facility] ([place]) Comment on above: Result Comment: Trop onin I reference ranges (11/23/13): 0.00-0.040 ng/mL Negative and non-diagnostic. >0.040 ng/mL Consistent with cardiac damage, increased clinical risk and possibility of myocardial infarction. Serial measurements, a rise & fall in test results, clinical history, appropriate symptoms and/or ECG changes may help assess possibility of NC. *Other non-acute coronary syndrome conditions such as CHF, myocarditis, pulmonary emboli, sepsis and cardiac surgery could result in myocardial damage and increased troponin levels. Performed By: #### C BC, ADIFF, ANEU, BMP, TROPI, GFR ####[address] [address] .Auto Diffon 10-05-2016 Basophils Auto #/vol (Bld) 0.00 10 3/mcL Normal 0.00-0.27 [facility] ([place]) Comment on above: Performed By: #### C BC, ADIFF, ANEU, BMP, TROPI, GFR ####[address] [address] Basophils/100 WBC Auto (Bld) 0.4 % Normal 0.0-2.5 [facility] ([place]) Comment on above: Performed By: #### C BC, ADIFF, ANEU, BMP, TROPI, GFR ####[address] [address] Eosinophils 0.20 10 3/mcL Normal 0.00-0.65 [facility] ([place]) Comment on above: Performed By: #### C BC, ADIFF, ANEU, BMP, TROPI, GFR ####[address] [address] Eosinophils/100 leukocytes 2.6 % Normal 0.0-6.0 [facility] ([place]) Comment on above: Performed By: #### C BC, ADIFF, ANEU, BMP, TROPI, GFR ####[address] [address] Lymphocytes 1.20 10 3/mcL Normal 0.90-4.32 [facility] ([place]) Comment on above: Performed By: #### C BC, ADIFF, ANEU, BMP, TROPI, GFR ####[address] [address] Lymphocytes/100 leukocytes 16.8 % Low 20.0-40.0 [facility] ([place]) Comment on above: Performed By: #### C BC, ADIFF, ANEU, BMP, TROPI, GFR ####[place] [address] Monocytes 0.60 10 3/mcL Normal 0.09-1.40 [facility] ([place]) Comment on above: Performed By: #### C BC, ADIFF, ANEU, BMP, TROPI, GFR ####[place] [address] Monocytes/100 leukocytes 7.5 % Normal 2.0-13.0 [facility] ([place] Comment on above: Performed By: #### C BC, ADIFF, ANEU, BMP, TROPI, GFR ####[place] [address] Neutrophils/100 WBC Auto (Bld) 72.7 % Normal 50.0-75.0 [facility] ([place]) Comment on above: Performed By: #### C BC, ADIFF, ANEU, BMP, TROPI, GFR ####[place] [address] .NEUABSon 10-05-2016 Neutrophils 5.40 10 3/mcL Normal 2.25-8.10 [facility] ([place]) Comment on above: Performed By: #### C BC, ADIFF, ANEU, BMP, TROPI, GFR ####[place] [address] BMPon 10-05-2016 BUN/Creatinine Ratio 14.8 ratio Normal 10.0-22.0 [facility] ([place]) Comment on above: Performed By: #### C BC, ADIFF, ANEU, BMP, TROPI, GFR ####[place] [address] Calcium 9.3 mg/dL Normal 8.4-10.1 [facility] ([place]) Comment on above: Performed By: #### C BC, ADIFF, ANEU, BMP, TROPI, GFR ####[place] [address] Chloride 105 mmol/L Normal 98-110 [facility] ([place]) Comment on above: Performed By: #### C BC, ADIFF, ANEU, BMP, TROPI, GFR ####[place] [address] CO2 23 mmol/L Normal 22-32 [facility] ([place]) Comment on above: Performed By: #### C BC, ADIFF, ANEU, BMP, TROPI, GFR ####[place] [address] Creatinine 0.81 mg/dL Normal 0.60-1.40 [facility] ([place]) Comment on above: Performed By: #### C BC, ADIFF, ANEU, BMP, TROPI, GFR ####[place] [address] Electrolyte Balance 11.0 mEq/L Normal 4.0-15.0 [facility] ([place]) Comment on above: Performed By: #### C BC, ADIFF, ANEU, BMP, TROPI, GFR ####[place] [address] Glucose mass conc 114 mg/dL Normal 82-115 [facility] ([place]) Comment on above: Performed By: #### C BC, ADIFF, ANEU, BMP, TROPI, GFR ####[place] [address] Potassium molar conc 3.5 mmol/L Normal 3.5-5.0 [facility] ([place]) Comment on above: Performed By: #### C BC, ADIFF, ANEU, BMP, TROPI, GFR ####[place] [address] Sodium 139 mmol/L Normal 136-145 [facility] ([place]) Comment on above: Performed By: #### C BC, ADIFF, ANEU, BMP, TROPI, GFR ####[place] [address] Urea nitrogen 12.0 mg/dL Normal 8.0-22.0 [facility] ([place]) Comment on above: Performed By: #### C BC, ADIFF, ANEU, BMP, TROPI, GFR ####[place] [address] CBCon 10-05-2016 Erythrocyte distribution width Auto Ratio (RBC) 13.1 % Normal 11.5-15.5 [facility] ([place]) Comment on above: Performed By: #### C BC, ADIFF, ANEU, BMP, TROPI, GFR ####[place] [address] Erythrocytes (RBC) 4.69 10 6/mcL Normal 4.50-6.00 [facility] ([place]) Comment on above: Performed By: #### C BC, ADIFF, ANEU, BMP, TROPI, GFR ####[place] [address] Hematocrit (HCT) 40.6 % Normal 40.0-52.0 [facility] ([place]) Comment on above: Performed By: #### C BC, ADIFF, ANEU, BMP, TROPI, GFR ####[place] [address] Hemoglobin mass conc (Bld) 14.3 G/dL Normal 13.0-17.5 [facility] ([place]) Comment on above: Performed By: #### C BC, ADIFF, ANEU, BMP, TROPI, GFR ####[place] [address] MCH 30.4 pg Normal 27.0-33.0 [facility] ([place]) Comment on above: Performed By: #### C BC, ADIFF, ANEU, BMP, TROPI, GFR ####[place] [address] MCHC mass conc (RBC) 35.2 G/dL Normal 32.0-36.0 [facility] ([place]) Comment on above: Performed By: #### C BC, ADIFF, ANEU, BMP, TROPI, GFR ####[place] [address] MCV 86.4 fL Normal 81.0-100.0 [facility] ([place]) Comment on above: Performed By: #### C BC, ADIFF, ANEU, BMP, TROPI, GFR ####[address] [place], [place] [address] Platelet mean volume (PMV) 7.3 fL Normal 6.4-10.5 [facility] ([place]) Comment on above: Performed By: #### C BC, ADIFF, ANEU, BMP, TROPI, GFR ####[place] [address] [place] [address] Platelets 222 10 3/mcL Normal 150-450 [facility] ([place]) Comment on above: Performed By: #### C BC, ADIFF, ANEU, BMP, TROPI, GFR ####[place] [address] [place] [address] WBC (Leukocytes) 7.40 10 3/mcL Normal 4.50-10.80 [facility] ([place]) Comment on above: Performed By: #### C BC, ADIFF, ANEU, BMP, TROPI, GFR ####[address] [address] ED Note-Provideron 7 ED Note-Provider Normal [facility] ([place]) GFRon 10-05-2016 eGFR (non-black) mL/min/{1.73_m2} Normal [facility] ([place]) Comment on above: Result Comment: GFR Population [...] C BC, ADIFF, ANEU, BMP, TROPI, GFR ####[address] [address] History and Physicalon 10-05 History and Physical Normal [facility] ([place]) TROPIon 10-05-2016 Troponin I.cardiac mass conc 1.050 ng/mL High 0.000-0.040 [facility] ([place]) Comment on above: Result Comment: Trop onin I reference ranges (11/23/13): 0.00-0.040 ng/mL Negative and non-diagnostic. >0.040 ng/mL Consistent with cardiac damage, increased clinical risk and possibility of myocardial infarction. Serial measurements, a rise & fall in test results, clinical history, appropriate symptoms and/or ECG changes may help assess possibility of NC. *Other non-acute coronary syndrome conditions such as CHF, myocarditis, pulmonary emboli, sepsis and cardiac surgery could result in myocardial damage and increased troponin levels. Performed By: #### C BC, ADIFF, ANEU, BMP, TROPI, GFR ####[address] [address] Troponin I.cardiac mass conc 0.771 ng/mL High 0.000-0.040 [facility] ([place]) Comment on above: Result Comment: Trop onin I reference ranges (11/23/13): 0.00-0.040 ng/mL Negative and non-diagnostic. >0.040 ng/mL Consistent with cardiac damage, increased clinical risk and possibility of myocardial infarction. Serial measurements, a rise & fall in test results, clinical history, appropriate symptoms and/or ECG changes may help assess possibility of NC. *Other non-acute coronary syndrome conditions such as CHF, myocarditis, pulmonary emboli, sepsis and cardiac surgery could result in myocardial damage and increased troponin levels. Performed By: #### T ROPI ####[address] [address] Troponin I.cardiac mass conc 0.079 ng/mL High 0.000-0.040 [facility] ([place]) Comment on above: Result Comment: Trop onin I reference ranges (11/23/13): 0.00-0.040 ng/mL Negative and non-diagnostic. >0.040 ng/mL Consistent with cardiac damage, increased clinical risk and possibility of myocardial infarction. Serial measurements, a rise & fall in test results, clinical history, appropriate symptoms and/or ECG changes may help assess possibility of NC. *Other non-acute coronary syndrome conditions such as CHF, myocarditis, pulmonary emboli, sepsis and cardiac surgery could result in myocardial damage and increased troponin levels. Performed By: #### C BC, ADIFF, ANEU, BMP, TROPI, GFR ####[facility] [place] [address] XR CHEST 2 VIEWSon 7 XR CHEST 2 VIEWS ORIGINALXR CHEST 2 V IEWS Technique: PA and lateral views Clinical Statement: CHEST PAIN Comparison: 08/20/2016 Findings: The heart, curt, mediastinum, and lungs are normal. No mass, infiltrate, pleural fluid, or vascular congestion is seen. The bones are intact. Impression: Normal chest. Interpreted By: Adrianne Zazuetareliminary Report By: Adrianne Zazueta MDElectronically Signed By: Adrianne Zazueta MD Dictated Date: 10/05/2016 1:39:20 PM Prelim Date: 10/05/2016 1:39:20 PM Sign Date: 10/05/2016 1:39:45 PM Normal [facility] ([place]) Vital Signs Date Time Vital Sign Value Performing Clinician Facility 11-28-2021 08:56-0400 Body height 182.[address] Justice Root Work Phone: [facility] Work Phone: 11-28-2021 08:55-0400 Body mass index (BMI) [Ratio] 34 kg/m2 Dr. Justice Root Work Phone: [facility] Work Phone: 11-28-2021 08:55-0400 Body temperature 97.3 [degF] Dr. Justice Root Work Phone: [facility] Work Phone: 11-28-2021 08:55-0400 Body weight 113.[address] Justice Root Work Phone: [facility] Work Phone: 11-28-2021 08:55-0400 Diastolic blood pressure 89 mm[Hg] Dr. Justice Root Work Phone: [facility] Work Phone: 11-28-2021 08:55-0400 Heart rate 79 /min Dr. Justice Root Work Phone: [facility] Work Phone: 11-28-2021 08:55-0400 Respiratory rate 16 /min Dr. Justice Root Work Phone: [facility] Work Phone: 11-28-2021 08:55-0400 SaO2% (BldA) [Mass fraction] 97 % Dr. Justice Root Work Phone: [facility] Work Phone: 11-28-2021 08:55-0400 Systolic blood pressure 149 mm[Hg] Dr. Justice Root Work Phone: [facility] Work Phone: 10-18-2021 08:22-0400 Body mass index (BMI) [Ratio] 34.2 kg/m2 Dr. Justice Root Work Phone: [facility] Work Phone: 10-18-2021 08:22-0400 Body temperature 97.2 [degF] Dr. Justice Root Work Phone: [facility] Work Phone: 10-18-2021 08:22-0400 Body weight 114.[address] Justice Root Work Phone: [facility] Work Phone: 10-18-2021 08:22-0400 Diastolic blood pressure 82 mm[Hg] Dr. Justcie Root Work Phone: [facility] Work Phone: 10-18-2021 08:22-0400 Heart rate 16 /min Dr. Justice Root Work Phone: [facility] Work Phone: 10-18-2021 08:22-0400 Respiratory rate 16 /min Dr. Justice Root Work Phone: [facility] Work Phone: 10-18-2021 08:22-0400 SaO2% (BldA) [Mass fraction] 98 % Dr. Justice Root Work Phone: [facility] Work Phone: 10-18-2021 08:22-0400 Systolic blood pressure 134 mm[Hg] Dr. Justice Root Work Phone: [facility] Work Phone: 10-12-2021 08:36-0400 Body mass index (BMI) [Ratio] 34.3 kg/m2 Dr. Justice Root Work Phone: [facility] Work Phone: 10-12-2021 08:36-0400 Body temperature 97.8 [degF] Dr. Justice Root Work Phone: [facility] Work Phone: 10-12-2021 08:36-0400 Body weight 114.[address] Justice Root Work Phone: [facility] Work Phone: 10-12-2021 08:36-0400 Diastolic blood pressure 87 mm[Hg] Dr. Justice Root Work Phone: [facility] Work Phone: 10-12-2021 08:36-0400 Heart rate 87 /min Dr. Justice Root Work Phone: [facility] Work Phone: 10-12-2021 08:36-0400 Respiratory rate 16 /min Dr. Justice Root Work Phone: [facility] Work Phone: 10-12-2021 08:36-0400 SaO2% (BldA) [Mass fraction] 99 % Dr. Justice Root Work Phone: [facility] Work Phone: 10-12-2021 08:36-0400 Systolic blood pressure 149 mm[Hg] Dr. Justice Root Work Phone: [facility] Work Phone: 10-04-2021 08:24-0400 Body mass index (BMI) [Ratio] 34.3 kg/m2 Dr. Justice Root Work Phone: [facility] Work Phone: 10-04-2021 08:24-0400 Body temperature 97.1 [degF] Dr. Justice Root Work Phone: [facility] Work Phone: 10-04-2021 08:24-0400 Body weight 114.[address] Justiec Root Work Phone: [facility] Work Phone: 10-04-2021 08:24-0400 Diastolic blood pressure 85 mm[Hg] Dr. Justice Root Work Phone: [facility] Work Phone: 10-04-2021 08:24-0400 Heart rate 84 /min Dr. Justice Root Work Phone: [facility] Work Phone: 10-04-2021 08:24-0400 Respiratory rate 16 /min Dr. Justice Root Work Phone: [facility] Work Phone: 10-04-2021 08:24-0400 SaO2% (BldA) [Mass fraction] 98 % Dr. Justice Root Work Phone: [facility] Work Phone: 10-04-2021 08:24-0400 Systolic blood pressure 134 mm[Hg] Dr. Justice Root Work Phone: [facility] Work Phone: 08-23-2021 09:59-0400 Body height 182.9 cm Es Yip PA-C Work Phone: [facility] 08-23-2021 09:59-0400 Body temperature 97.5 [degF] Es San Bruno PA-C Work Phone: [facility] 08-23-2021 09:59-0400 Body weight 113.4 kg Es San Bruno PA-C Work Phone: [facility] 08-23-2021 09:59-0400 Diastolic blood pressure 72 mm[Hg] Es Theodora PA-C Work Phone: [facility] 08-23-2021 09:59-0400 Heart rate 104 /min Es [place] PA-C Work Phone: [facility] 08-23-2021 09:59-0400 SaO2% (BldA) [Mass fraction] 97 % Esliam Lamasf PA-C Work Phone: [facility] 08-23-2021 09:59-0400 Systolic blood pressure 132 mm[Hg] Es Lamasf PA-C Work Phone: [facility] 08-16-2021 10:00-0400 Body temperature 98.2 [degF] Dr. Justice Root Work Phone: [facility] Work Phone: 08-16-2021 10:00-0400 Diastolic blood pressure 79 mm[Hg] Dr. Justice Root Work Phone: [facility] Work Phone: 08-16-2021 10:00-0400 Heart rate 73 /min Dr. Justice Root Work Phone: [facility] Work Phone: 08-16-2021 10:00-0400 Respiratory rate 16 /min Dr. Justice Root Work Phone: [facility] Work Phone: 08-16-2021 10:00-0400 SaO2% (BldA) [Mass fraction] 98 % Dr. Justice Root Work Phone: [facility] Work Phone: 08-16-2021 10:00-0400 Systolic blood pressure 142 mm[Hg] Dr. Justice Root Work Phone: [facility] Work Phone: 08-16-2021 06:59-0400 Body height 182.[address] Justice Root Work Phone: [facility] Work Phone: 08-16-2021 06:59-0400 Body mass index (BMI) [Ratio] 34.4 kg/m2 Dr. Justice Root Work Phone: [facility] Work Phone: 08-16-2021 06:59-0400 Body weight 115.[address] Justice Root Work Phone: [facility] Work Phone: 08-09-2021 13:08-0400 Body temperature 97.7 [degF] Clinton Kramer MD Work Phone: [facility] 08-09-2021 13:08-0400 Diastolic blood pressure 85 mm[Hg] Clinton Kramer MD Work Phone: [facility] 08-09-2021 13:08-0400 Heart rate 77 /min Clinton Kramer MD Work Phone: [facility] 08-09-2021 13:08-0400 Respiratory rate 14 /min Clinton Kramer MD Work Phone: [facility] 08-09-2021 13:08-0400 SaO2% (BldA) [Mass fraction] 95 % Clinton Kramer MD Work Phone: [facility] 08-09-2021 13:08-0400 Systolic blood pressure 147 mm[Hg] Clinton Kramer MD Work Phone: [facility] 07-24-2021 09:15-0400 Body height 182.[address] Justice Root Work Phone: [facility] Work Phone: 07-24-2021 09:15-0400 Body mass index (BMI) [Ratio] 34.7 kg/m2 Dr. Justice Root Work Phone: [facility] Work Phone: 07-24-2021 09:15-0400 Body temperature 98 [degF] Dr. Justice Root Work Phone: [facility] Work Phone: 07-24-2021 09:15-0400 Body weight 116.[address] Justice Root Work Phone: [facility] Work Phone: 07-24-2021 09:15-0400 Diastolic blood pressure 98 mm[Hg] Dr. Justice Root Work Phone: [facility] Work Phone: 07-24-2021 09:15-0400 Heart rate 78 /min Dr. Justice Root Work Phone: [facility] Work Phone: 07-24-2021 09:15-0400 Respiratory rate 16 /min Dr. Justice Root Work Phone: [facility] Work Phone: 07-24-2021 09:15-0400 SaO2% (BldA) [Mass fraction] 97 % Dr. Justice Root Work Phone: [facility] Work Phone: 07-24-2021 09:15-0400 Systolic blood pressure 145 mm[Hg] Dr. Justice Root Work Phone: [facility] Work Phone: 06-22-2021 12:47-0400 Body height 182.[address] Justice Root Work Phone: [facility] Work Phone: 06-22-2021 12:47-0400 Body mass index (BMI) [Ratio] 34.5 kg/m2 Dr. Justice Root Work Phone: [facility] Work Phone: 06-22-2021 12:47-0400 Body weight 115.[address] Justice Root Work Phone: [facility] Work Phone: 06-22-2021 12:47-0400 Diastolic blood pressure 87 mm[Hg] Dr. Justice Root Work Phone: [facility] Work Phone: 06-22-2021 12:47-0400 Heart rate 84 /min Dr. Jsutice Root Work Phone: [facility] Work Phone: 06-22-2021 12:47-0400 Respiratory rate 16 /min Dr. Justice Root Work Phone: [facility] Work Phone: 06-22-2021 12:47-0400 SaO2% (BldA) [Mass fraction] 97 % Dr. Justice Root Work Phone: [facility] Work Phone: 06-22-2021 12:47-0400 Systolic blood pressure 136 mm[Hg] Dr. Justice Root Work Phone: [facility] Work Phone: 06-13-2021 16:10-0400 Body height 182.9 cm Es San [place] PA-C Work Phone: [facility] 06-13-2021 16:10-0400 Body temperature 98.01 [degF] Es San [place] PA-C Work Phone: [facility] 06-13-2021 16:10-0400 Body weight 116.12 kg Es Theodora PA-C Work Phone: [facility] 06-13-2021 16:10-0400 Diastolic blood pressure 83 mm[Hg] Es Lamasf PA-C Work Phone: [facility] 06-13-2021 16:10-0400 Heart rate 89 /min Es Lamasf PA-C Work Phone: [facility] 06-13-2021 16:10-0400 SaO2% (BldA) [Mass fraction] 99 % Es Lamasf PA-C Work Phone: [facility] 06-13-2021 16:10-0400 Systolic blood pressure 161 mm[Hg] Es Lamasf PA-C Work Phone: [facility] Encounters Encounter Date Encounter Type Care Provider Facility Start: 02-01-2025 ambulatory Justice Root Facility: [facility] Start: 10-05-2024 End: 10-05-[address] Justice Root DO Work Phone: [facility] [place] Start: 10-05-2024 End: 10-05-[address] Justice Root DO [facility] [place] Work Phone: Start: 10-05-2024 End: 10-05-2024 ambulatory Justice Root Facility:[facility] Start: 04-14-2024 End: 04-14-2024 ambulatory You Alva [place] Start: 04-01-2023 End: 04-01-2023 ambulatory [facility] Work Phone: Start: 04-01-2023 End: 04-01-2023 Patient encounter procedure [facility] Work Phone: Start: 09-28-2022 End: 09-28-2022 ambulatory [facility] Work Phone: Start: 09-28-2022 End: 09-28-2022 Patient encounter procedure [facility] Work Phone: Start: 04-06-2022 End: 04-06-2022 ambulatory [facility] Work Phone: Start: 04-06-2022 End: 04-06-2022 Patient encounter procedure [facility] Start: 01-26-2022 End: 01-26-[address] Justice Root Work Phone: [facility] Work Phone: Start: 01-26-2022 End: 01-26-[address] Justice Root Work Phone: [facility] Start: 11-28-2021 End: 11-28-[address] Justice Root Work Phone: [facility] Start: 10-19-2021 Non-patient / Non-visit Dr. Jayce Root Work Phone: [facility] Start: 10-19-[address] [facility] Start: 10-18-2021 End: 10-18-[address] Justice Root Work Phone: [facility] Start: 10-12-2021 End: 10-12-[address] Justice Root Work Phone: [facility] Start: 10-11-2021 End: 10-11-[address] Justice Root Work Phone: [facility] Start: 10-04-2021 End: 10-04-[address] Justice Root Work Phone: [facility] Start: 08-23-2021 End: 08-23-2021 Patient encounter procedure Es Yip PA-C Work Phone: General Surgery Comment on above: Serrated polyp of co mateo (Primary Dx) Start: 08-22-2021 End: 08-22-[address] Justice Root Work Phone: [facility] Start: 08-22-2021 Non-patient / Non-visit Dr. Jayce Root Work Phone: [facility] Start: 08-22-[address] Justice Root [facility] Start: 08-16-2021 End: 08-16-2021 Admission to same day surgery center Dr. Justice Root [facility] Start: 08-09-2021 End: 08-09-2021 Subsequent hospital visit by physician Clinton Kramer MD Work Phone: [facility] Comment on above: History of colon natacha yps [Z86.010] Start: 07-31-2021 End: 07-31-[address] Justice Root [facility] Start: 07-24-2021 End: 07-24-[address] Justice Root Work Phone: [facility] Start: 07-17-2021 End: 07-17-[address] Justice Root [facility] Start: 07-10-[address] Justice Root [facility] Start: 06-22-2021 End: 06-22-[address] Justice Root Work Phone: [facility] Start: 06-20-2021 End: 06-20-[address] Justice Root Work Phone: [facility], Specimen Start: 06-13-2021 End: 06-13-2021 Patient encounter procedure Es Yip PA-C Work Phone: General Surgery Comment on above: Encounter for screen ing for malignant neoplasm of colon (Primary Dx); Gastroesophageal reflux disease, unspecified whether esophagitis present; History of colonic polyps; Tortuous colon Start: 06-09-2021 Non-patient / Non-visit Dr. Jayce Root Work Phone: [facility] Start: 05-18-2021 End: 05-18-[address] Justice Root Work Phone: [facility] Start: 06-07-2020 End: 06-07-2020 Patient encounter procedure [facility] Start: 05-17-2020 End: 05-17-2020 Patient encounter procedure [facility] Start: 10-16-2016 End: 10-17-2016 Ambulatory BENJAMIN ZACARIAS Facility:A Start: 10-05-2016 End: 10-09-2016 Evaluation and management of inpatient [facility] Facility:A Procedures Date Procedure Procedure Detail Performing Clinician Start: 10-05-2024 Assay of prostate specific antigen total Dr. Justice Root DO Work Phone: Comment on above: This test was perfor med using the [employer] tPSA method. Measured values of a patient sample can vary depending on the testing procedure used. PSA values determined on patient samples by different testing procedures cannot be used interchangeably. If there is a change in PSA assays while monitoring therapy, sequential testing should be performed to confirm baseline values. Start: 10-05-2024 Urine microalbumin/creatinine ratio measurement Dr. Justice Root DO Work Phone: Start: 01-26-2022 Diagnostic radiograp hy of abdomen [...] stent placement Dr. Justice Root Work Phone: Comment on above: PCI-KRISTINA-Mid LAD w/ 3 .0 x 38 mm Xience Stent 10/08/16; [id number] OM2 w/ 3.5 x 18 mm Xience 10/16/16 Start: 03-03-2012 Colonoscopy Es ron PA-C Work Phone: Plan of Treatment Date Care Activity Detail Author Start: 08-09-2026 Colonoscopy COLONOSCOPY [facility] Start: 08-09-2026 COLORECTAL CANCER SCREENING COLORECTAL CANCER SCREENING [facility] Start: 08-09-2024 Colonoscopy COLONOSCOPY [facility] Start: 08-09-2024 COLORECTAL CANCER SCREENING COLORECTAL CANCER SCREENING [facility] Start: 12-10-2021 Urine microalbumin profile DTAP,TDAP,TD (2 - Td or Tdap) [facility] Start: 11-16-2021 Influenza vaccination INFLUENZ A (Season Ended) [facility] Start: 08-16-2021 Anesthesia anorectal procedure ANESTH ANORECTAL SURGERY [facility] Work Phone: Start: 08-16-2021 Plmt interstitial de v radiat tx prostate 1/mult PLACE RT DEVICE/MARKER PROS [facility] Work Phone: Start: 08-16-2021 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 njx TPRNL PLMT BIODEGRDABL MATRL [facility] Work Phone: Start: 05-14-2021 Hemoglobin A1c/Hemoglobin.total in Blood HBA1C [facility] Start: 03-18-2021 ADVANCE DIRECTIVE DISCUSSION ADVANCE DIRECTIVE DISCUSSION [facility] Start: 2018 PNEUMOVAX AGE 65 AND OVER WITH 5YR LOOKBACK (#1) PNEUMOVAX AGE 65 AND OVER WITH 5YR LOOKBACK (#1) [facility] Start: 11-20-2017 Hepatitis B screening URINE ALBUMIN:CREATININE RATIO [facility] Start: 11-20-2017 Hepatitis B surface antibody level LDL CHOLESTEROL [facility] Start: 11-12-2017 ANNUAL PCP TEAM OPERATIONS 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 MAN DISEASE VISIT ANNUAL PCP TEAM CHRONIC DISEASE VISIT [facility] Start: 10-29-2017 Adult depression screening assessment DEPRESSION SCREENING [facility] Start: 06-14-2017 3 comp foot exam completed DIABETIC FOOT EXAM [facility] Start: 05-15-2017 Hepatitis C antibody , confirmatory test DILATED RETINAL EXAM [facility] Start: 03-03-2017 Colonoscopy COLONOSCOPY [facility] Start: 03-03-2017 COLORECTAL CANCER SCREENING COLORECTAL CANCER SCREENING [facility] Start: 10-26-2011 PROSTATE CANCER SCREENING DISCUSSION PROSTATE CANCER SCREENING DISCUSSION [facility] Start: 08-16-2007 PNEUMOCOCCAL: 65+ (2 - PCV) PNEUMOCOCCAL: 65+ (2 - PCV) [facility] Start: 06-17-2003 SHINGRIX VACCINE (1 of 2) SHINGRIX VACCINE (1 of 2) [facility] Start: 1998 COLOGUARD (FIT-DNA) COLOGUARD (FIT-D NA) [facility] Start: [address] [facility] Start: 1998 FECAL OCCULT BLOOD FECAL OCCULT BLOO D [facility] Start: 1998 SIGMOIDOSCOPY SIGMOIDOSCOPY [facility] Start: 06-17-1971 BP CONTROLLED (<130/80) BP CONTROLLE D (<130/80) [facility] Start: 1958 COVID-19 VACCINE (#1) COVID-19 VACCI NE (#1) [facility] Start: 1958 COVID-19 VACCINE (1) COVID-19 VACCIN E (1) [facility] Patient referral [facility] Work Phone: SURGICAL PATHOLOGY [facility] Work Phone: Comment on above: Release Upon Orderin g for 1 Occurrences starting 08/09/2021, 1 completed [facility] Immunizations Immunization Date Immunization Notes Care Provider Malena bess 12-27-2014 influenza, injectabl e, quadrivalent, contains preservative Es Theodora PA-C Work Phone: [facility] 12-10-2013 influenza, seasonal, injectable Es San Bruno PA-C Work Phone: [facility] Work Phone: 02-19-2013 influenza virus vacc ine, unspecified formulation Es Theodora PA-C Work Phone: [facility] 12-11-2011 tetanus toxoid, redu lola diphtheria toxoid, and acellular pertussis vaccine, adsorbed Es Theodora PA-C Work Phone: [facility] Work Phone: 02-20-2011 influenza virus vacc ine, unspecified formulation Es San Bruno PA-C Work Phone: [facility] 08-15-2006 pneumococcal polysaccharide vaccine, 23 valent Clinton Kramer MD Work Phone: [facility] Work Phone: Payers Date Payer Category Payer Self-pay [id number] 2018 Unknown MMO MMO [employer] [id number] 2018-Present [phone] [address] [place] [address] [facility] [id number] 2008 Unknown [id number] 1955 Unknown [id number] Medicare [id number] Unknown [id number] Unknown [id number] Unknown [id number] Unknown [id number] Social History Date Type Detail Facility Start: 08-10-2021 Tobacco smoking stat [email or web address]IS Never smoked tobacco [facility] Start: 06-13-2021 End: 08-29-2021 Alcohol intake Current drinker of alcohol (finding) [facility] Start: 1955 Sex Assigned At Not on file [facility] Start: 06-03-2021 End: 08-23-2021 Exposure to SARS-CoV-2 (event) Not sure [facility] Start: 06-22-2021 End: 08-10-2021 Tobacco smoking status RIIS Unknown if ever smoked [facility] Start: 1955 Sex Assigned At Male W [facility] Medical Equipment Procedure Code Equipment Code [...] GOLD FDA Start: 08-16-2021 Radiotherapy protection spacer [id number] FDA Start: 08-16-2021 MARKERS, FIDUCIA L GOLD [...] Assessment Result Facility 08-16-2021 Cognitive function Voice/Name [facility] Work Phone: Clinical Notes 11-02-2013 to 08-23-2021 Patient InstructionsEs Yip PA-C - 08/23/2021 10:05 AM Leonard Kramer MD - 08/09/2021 12:30 PM Clayton Yip PA-C - 06/13/2021 4:23 PM Margarita Grove - 06/13/2021 4:15 PM EDT Note Date & Type Note Facility 08-23-2021 Note HNO ID: [id number] Author: Es Yip PA-C Service: ? Author Type: Physician Manager Leadership Development Type: Progress Notes Filed: 08/29/2021 1:09 PM Note Text: FOLLOW UP VISIT - ENDOSCOPY NAME: Pranav Alicea [facility] NO.: [id number] DATE OF SERVICE: 08/23/2021 : 1955 REFERRING PHYSICIAN: Justice Root, Pranav is a patient I am following [...] use. No record of EGD completion in [facility]. Reviewed with patient, who denies having [...] which included preparing to see the patient, [id number] patient care, completing clinical documentation, obtaining and/or reviewing separately obtained history, counseling and educating the patient/family/caregiver, independently interpreting results (not separately reported) and communicating results to the patient/family/caregiver. Es Yip PA-C [facility] 08-23-2021 Instructions Es Yip PA-C - 08/23/2021 10:16 AM EDT The following instructions are important for you related to your office visit today with the [facility] General Surgeons. INSTRUCTIONS FOLLOWING A POLYP [...] you should contact our office immediately @ [phone] and ask to be transferred to the General Surgery department. documented in this encounter [facility] 08-23-2021 History of Present illness Narrative FOLLOW UP VISIT - ENDOSCOPY NAME: Pranav Mohan [facility] NO.: [id number] DATE OF SERVICE: 08/23/2021 : 1955 REFERRING [...] use. No record of EGD completion in [facility]. Reviewed with patient, who denies having [...] which included preparing to see the patient, [id number] patient care, completing clinical documentation, obtaining and/or reviewing separately obtained history, counseling and educating the patient/family/caregiver, independently interpreting results (not separately reported) and communicating results to the patient/family/caregiver. Es Yip PA-C documented in this encounter [facility] 08-09-2021 History and physical note Images [...] barium enema. Past medical history significant for NC and stent placement, type II diabetes, sleep [...] entered by the nurse and reviewed by ky Nursing Notes: Samantha Grove 06/13/2021 4:17 PM [...] patient was offered a surgery/procedure at a [facility] facility. I have counseled the patient [...] TIME: 12:13 PM documented in this encounter [facility] 06-13-2021 Note HNO ID: [id number] Author: Es Yip PA-C Service: ? Author Type: Physician Manager Leadership Development Type: Progress Notes Filed: 06/19/2021 12:39 PM Note Text: HISTORY AND PHYSICAL rPanav Alicea 1955 REFERRING PHYSICIAN: Self CHIEF COMPLAINT: [...] barium enema. Past medical history significant for NC and stent placement, type II diabetes, sleep [...] entered by the nurse and reviewed by ky Nursing Notes: Samantha Grove 06/13/2021 4:17 PM [...] history of epilepsy/ (more content not included)... [facility] 06-13-2021 History of Present illness Narrative HISTORY [...] barium enema. Past medical history significant for NC and stent placement, type II diabetes, sleep [...] entered by the nurse and reviewed by ky Nursing Notes: Samanthacaroline Grove 06/13/2021 4:17 PM Signed REVIEW OF [...] patient was offered a surgery/procedure at a [facility] facility. I have counseled the patient [...] Es Yip PA-C documented in this encounter [facility] 06-13-2021 Nurse Note REVIEW OF SYSTEMS: [...] 2011 Samantha Grove documented in this encounter [facility] 10-16-2016 Evaluation note Diagnosis Onset Date Essential hypertension acute Hyperlipidemia acute History of coronary artery stent placement October 16, 2016 [facility] Work Phone: 1(312) 860-928008-01-2017 Evaluation note* Diagnosis Onset Date Resolution Status Essential hypertension acute Hyperlipidemia acute History of coronary artery stent placement October 16, 2016 chronic [id number] [facility] Work Phone: 1(776) 603-682208-18-2014 History of Past illness Narrative* Problem Noted Date Resolved Date Open wound(s) (multiple) of unspecified site(s), without mention of complication 11/02/2013 12/27/2014 documented as of this encounter (statuses as of 06/19/2021) [facility]08-18-2014 History of Past illness Narrative* Problem Noted Date Resolved Date Open wound(s) (multiple) of unspecified site(s), without mention of complication 11/02/2013 12/27/2014 documented as of this encounter (statuses as of 08/10/2021) [facility] History of Past illness Narrative* Problem Noted Date Resolved Date Open wound(s) (multiple) of unspecified site(s), without mention of complication 11/02/2013 12/27/2014 documented as of this encounter (statuses as of 08/29/2021) [facility] Diagnosis Encounter for screening for malignant neoplasm of colon- Primary Special screening for malignant neoplasms, colon Gastroesophageal reflux disease, unspecified whether esophagitis present History of colonic polyps Personal history of colonic polyps Tortuous colon Volvulus [facility] Diagnosis History of colon polyps Personal history of colonic polyps [facility] Diagnosis Serrated polyp of colon- Primary [facility] Diagnosis Onset Date Resolution Status [id number] acute [id number] acute [id number] acute [id number] acute [facility] Work Phone: Evaluation noteNo assessment information available [facility] Work Phone: Reason for referral (narrative)* Outpatient Procedure (Routine) - Closed Specialty Diagnoses / Procedures Referred By Lachelle ramirez Referred To Contact [facility] Diagnoses History of colon polyps Procedures COLONOSCOPY SCREENING COLONOSCOPY FLX DX W/COLLJ SPEC WHEN Es Gates PA-C [address] [address] [facility] [address] [place] [address] Referral ID Status Reason Start Date Expiration Date V isits Requested Visits Authorized [id number] Closed Auto-Generate d Referral 2021 06/14/2022 1 1 [facility] for referral (narrative)No reason for [facility] Work Phone: Reason for visit Narrative* Outpatient Procedure (Routine) - Closed Specialty Diagnoses / Procedures Referred By Lachelle ramirez Referred To Contact [facility] Diagnoses History of colon polyps Procedures COLONOSCOPY SCREENING COLONOSCOPY FLX DX W/COLLJ SPEC WHEN Es Gates PA-C [address] [place] [address] 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 Advance Directive(s) 08/09/2021 10:13 AM Advance Directive(s) 07/21/2021 5:08 PM Advance Directive Response Recorded Date/ Time Living Will No August 10, 2021 2 :06pm Power of Research And Development Director No August 10, 2021 2:06pm Documents on File Type Date 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 [place] [facility] Reason for Visit Essential hypertensi on Hyperlipidemia History of coronary artery stent placement Chief Complaint Amb Documentation EST CARE ([facility] [place] [facility] MALIGNANT NEOPLASM OF PROSTATE Reason for Visit Essential hypertensi on Hyperlipidemia History of coronary artery stent placement Chief Complaint Amb Documentation EST CARE ([facility] [place] [facility] MALIGNANT NEOPLASM OF PROSTATE CONSULT PROSTATE CANCER/ DR JOHNSTON PROSTATE CA STAGING Reason for Visit Essential hypertensi on Hyperlipidemia History of coronary artery stent placement [id number] Chief Complaint Amb Documentation EST CARE ([facility] BUCIO MALIGNANT NEOPLASM OF PROSTATE CONSULT PROSTATE CANCER/ DR JOHNSTON PROSTATE CA STAGING SPACE OARS Gel and Gold Markers Reason for Visit Essential hypertensi on Hyperlipidemia History of coronary artery stent placement [id number] Chief Complaint Amb Documentation EST CARE ([facility] MALIGNANT NEOPLASM OF PROSTATE CONSULT PROSTATE CANCER/ DR JOHNSTON PROSTATE CA STAGING SPACE OARS Gel and Gold Markers BUCIO PLANNING FOR XRT, INT RISK CANCER Reason for Visit Essential hypertensi on Hyperlipidemia History of coronary artery stent placement [id number] Chief Complaint OTV otv otv OTV BUCIO Amb Documentation 1 month f/u post RT Reason for Visit [id number] Chief Complaint 2 DRS/ 2 ORDERS Chief Complaint Admit Date 2 DRS/ 2 ORDERS October 05, 2024 7:06 am Medications Administered Section Inactive Administered Medications - [...] section and content) DATE CREATED AUTHOR 09/11/2017 [facility] DATE CREATED AUTHOR AUTHOR'S ORGANIZ ATION 06/18/2020 [facility] DATE CREATED AUTHOR AUTHOR'S ORGANIZ ATION 07/05/2020 [facility] DATE CREATED AUTHOR AUTHOR'S ORGANIZ ATION 08/10/2021 [facility] DATE CREATED AUTHOR AUTHOR'S ORGANIZ ATION 09/14/2021 [facility] DATE CREATED AUTHOR AUTHOR'S ORGANIZ ATION 01/19/2025 [facility] Source Comments (unrecognize d section and content) In the event this informatio n is protected by the Federal Confidentiality of Alcohol and Drug Abuse Patient Records regulations: The Federal rules restrict any use of the information to criminally investigate or prosecute any alcohol or drug abuse patient.[facility] the event this information is protected by the Federal Confidentiality of Alcohol and Drug Abuse Patient Records regulations: The Federal rules restrict any use of the information to criminally investigate or prosecute any alcohol or drug abuse patient.[facility] the event this information is protected by the Federal Confidentiality of Alcohol and Drug Abuse Patient Records regulations: The Federal rules restrict any use of the information to criminally investigate or prosecute any alcohol or drug abuse patient.[facility] Reason for Visit (unrecogniz ed section and content) Reason Comments Consult Colonoscopy Reason Comments Follow Up colonoscopy Care Teams (unrecognized sec tion and content) 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 Relationship Specialty Start Date End Date Justice Root DO [address] [place] [address] PCP - General Family Practice 05/30/21 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 Justice Root DO Primary Care Provider Active Team Status: Inactive Member Role/Relationship Status Dates Dr. Justice Root DO Primary Care Provider Active Start: October 05, 2024 End: October 05, 2024 Dr. Justice Root DO Attending Provider Active Start: October 05, 2024 End: October 05, 2024 Dr. Justice Root DO Referring Provider Active Start: October 05, 2024 End: October 05, 2024 Dr. Alan Johnston MD Other Provider Active Start: October 05, 2024 End: October 05, 2024 Goals (unrecognized section and content) Goals may [...] THE PRIMARY CLINICAL RECORDS. [facility] [employer] [facility]. provides no warranty or guarantee of the accuracy or completeness of information in this document.
--- NOTE | 2025-02-01 09:59 | STRESSREP ---
Stress Test Report Pharmacologic myocardial perfusion stress test. 69-year-old man with a history of coronary disease. Resting EKG demonstrates normal sinus rhythm with a rate of 88 bpm. Resting blood pressure is 150/78 mmHg. 0.4 mg of regadenoson was infused per usual protocol followed by rapid intravenous saline flush injection. Continuous EKG monitoring was performed. The maximum heart rate was 115 bpm which was 77% of max impacted heart rate the maximum workload was 1 metabolic equivalent. At rest there were no ST or T wave changes noted to suggest ischemia and at peak infusion nonspecific ST changes were noted which did not meet the criteria for ischemia. No clinical angina is noted. The final blood pressure was 136/78mmHg. Myocardial perfusion protocol. 14 mCi of technetium 99m sestamibi was injected at rest. 0.4 mg of regadenoson was infused per usual protocol. At peak infusion 45 mCi of technetium 99m sestamibi was injected stress images were obtained stress and rest images were reconstructed and compared in the short axis vertical long and horizontal long axis. Gated images were also obtained. Perfusion SPECT analysis: Review of the stress images demonstrate normal uptake of tracer noted in all areas of the myocardium. The resting images similar demonstrated normal uptake of tracer noted in all areas of the myocardium. No areas of reversibility are noted to suggest ischemia and no previous infarct is noted. Gated SPECT analysis: The gated ejection fraction is 69%. Conclusion: Normal pharmacologic myocardial perfusion stress test. Normal ejection fraction.
== END | disposition home or self-care (01) ==
PROVIDERS: PCP Family Medicine; Referring Provider Family Medicine; Visit Provider Family Medicine
DX: I25.10 Atherosclerotic heart disease of native coronary artery without angina pectoris (principal)
CPT/HCPCS: 78452; 93017; A9500; A4216; J2785